=== PATIENT | male | born 1960 | race Caucasian/White ===

== ENCOUNTER 2016-10-23 11:13 | Day surgery (SDC) | payer MEDICARE, MEDICAID ==
[~2016-10-23 11:13] MED LIST: Lactated Ringers 1,000 ML IV SCH; Lidocaine 1%/Sod Bicarbonate in NS 8.4% 1 ML Syringe IV PRN; Sodium Chloride 0.9% 10 ML Syringe FLUSH PRN
--- NOTE | 2016-10-23 13:18 | PCM.PREANE ---
Preanesthetic Assessment - Anesthesia/Transfusion/Family Hx Anesthesia History: Prior Anesthesia Without Reaction Transfusion History: No Prior Transfusion(s) - Physical Assessment NPO Status Date: 10/22/16 NPO Status Time: 23:45 O2 Sat by Pulse Oximetry: 95 Respiratory Rate: 16 Vital Signs: Last Vital Signs Temp 36.3 C 10/23/16 12:25 Pulse 58 L 10/23/16 12:25 Resp 16 10/23/16 12:25 BP 125/66 10/23/16 12:25 Pulse Ox 95 10/23/16 12:25 Height: 1.8 m Weight: 106.141 kg - Allergies Allergies/Adverse Reactions: Allergies Allergy/AdvReac Type Severity Reaction Status Date / Time indomethacin Allergy Airway Verified 10/22/16 14:07 Tightness PreAnesthesia Questionnaire HEENT History: Reports: Impaired vision, Other (see below) Other HEENT History: dentures, glasses Cardiovascular History: Reports: None Respiratory History: Reports: Asthma, Bronchitis, recurrent, COPD, Sleep apnea, SOB, Other (see below) Other Respiratory History: rhonchi, wheezes Gastrointestinal History: Reports: Cholelithiasis, Diverticulosis, Gastritis, GERD, Hiatal hernia, Other (see below) Other Gastrointestinal History: duodenitis, barretts esophogus, inguinal hernia , c diff, foacal intestinal metaplasia, duodenitis, diverticulosis Genitourinary History: Reports: Other (see below) Other Genitourinary History: hematuria MISSIONARY COORDINATOR History: Reports: None Musculoskeletal History: Reports: Arthritis Other Musculoskeletal History: R hip pain, R shoulder pain, plantar fascitis Neurological History: Reports: None Psychiatric History: Reports: Anxiety, Bipolar, Depression Endocrine/Metabolic History: Reports: Hypothyroidism, Obesity/BMI 30+ Hematologic History: Reports: Anemia Immunologic History: Reports: None Oncologic (Cancer) History: Reports: None - Past Surgical History Head Surgeries/Procedures: Reports: None GI Surgical History: Reports: Colonoscopy, Hernia, inguinal, Hernia repair/other Musculoskeletal Surgical History: Reports: Hip replacement, Other (see below) Other Musculoskeletal Surgeries/Procedures:: R hand surgery, R elbow surgery, R total hip replacement, pigeon chest surgery - SUBSTANCE USE Smoking Status *Q: Former Smoker (30 years about 4packs/day) Tobacco Use Within Last Twelve Months: No Second Hand Smoke Exposure: No Days Per Week of Alcohol Use: 0 Recreational Drug Use History: No - HOME MEDS Home Medications: Home Meds ARIPiprazole [Abilify] 10 mg PO DAILY 12/18/13 [History] Albuterol Sulfate [Albuterol Sulfate HFA] 18 gm IH Q6H PRN #1 hfa.[email or web address] [Rx] FLUoxetine [PROzac] 80 mg PO DAILY 12/18/13 [History] Albuterol [Proventil HFA] 1 puff INH QID PRN 09/06/15 [History] Budesonide/Formoterol [Symbicort 160-4.5 MCG] 2 puff INH BID 09/06/15 [History] Acetaminophen [Tylenol Extra Strength] 1,000 mg PO TID PRN 04/16/16 [History] Levothyroxine [Synthroid] 100 mcg PO ACBREAKFAST 04/16/16 [History] Umeclidinium [place] [Incruse Ellipta] 62.5 mcg IH BID 04/16/16 [History] Pantoprazole Sodium [Protonix] 40 mg PO DAILY #30 tablet.dr 04/17/16 [Rx] Montelukast [Singulair] 10 mg PO BEDTIME 05/14/16 [History] Ascorbate Calcium/Bioflavonoid [Kath-C 1,000 mg Tablet] 1 each PO DAILY [History] Diclofenac Sodium [Voltaren] 75 mg PO BID 10/22/16 [History] Lactobacillus Acidophilus [Probiotic] 1 each PO DAILY 10/22/16 [History] Multivitamin [Multivitamins] 1 cap PO DAILY 10/22/16 [History] buPROPion [Wellbutrin XL] 150 mg PO DAILY 10/22/16 [History] Doxycycline [Vibramycin] 100 mg PO BID 10/23/16 [History] - CURRENT (IN HOUSE) MEDS Current Meds: Current Medications Lactated Ringer's (Ringers, Lactated) 1,000 mls @ 125 mls/hr IV ASDIRECTED SORAYA Stop: 10/23/16 23:59 Last Admin: 10/23/16 12:45 Dose: 125 mls/hr Lidocaine/Sodium Bicarbonate (Buffered Lidocaine 1% In Ns 8.4%) 0.25 ml IV ONETIME PRN PRN Reason: Prior to IV Start Stop: 10/23/16 23:59 Last Admin: 10/23/16 12:45 Dose: 0.25 ml Sodium Chloride (Saline Flush) 10 ml FLUSH ASDIRECTED PRN PRN Reason: Keep Vein Open Stop: 10/23/16 23:59 Preanesthetic Assessment - ANESTHESIA/TRANSFUSION/FAMILY HX Anesthesia/Transfusion History: No Prior Transfusion(s), Prior Anesthesia ( reports no problems ) Type of Anesthesia Reaction: Reports: Unknown Family History of Anesthesia Reaction: No Intubation History: Unknown Type of Transfusion Reactions: Reports: Unknown - REVIEW OF SYSTEMS Constitutional: Reports: no symptoms CLOSET BUILDER: 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: no symptoms Respiratory: Reports: no symptoms (asthma, copd, emphysema (uses daily inhalers) , LULU with CPAP) Cardiovascular: Reports: no symptoms GI: Reports: no symptoms Other: Reports: None - PHYSICAL ASSESSMENT O2 Sat by Pulse Oximetry: 95 RR: 16 Vital Signs: Last Vital Signs Temp 36.3 C 10/23/16 12:25 Pulse 58 L 10/23/16 12:25 Resp 16 10/23/16 12:25 BP 125/66 10/23/16 12:25 Pulse Ox 95 10/23/16 12:25 Height: 1.8 m Weight: 106.141 kg NPO Status Date: 10/22/16 NPO Status Time: 23:45 ASA Class: 3 Mental Status: Alert & Oriented x3 Airway Class: Mallampati = 1 Dentition: Reports: Dentures (upper and lower ) Thyro-Mental Finger Breadths: 3 Mouth Opening Finger Breadths: 3 ROM/Head Extension: Full Respiratory Status: wheezing (Expiratory wheezes with a large breath, otherwise clear ) Cardiovascular Status: regular rate & rhythm, normal S1, S2, no murmur, blood pressure WNL - ALLERGIES Allergies/Adverse Reactions: Allergies Allergy/AdvReac Type Severity Reaction Status Date / Time indomethacin Allergy Airway Verified 10/22/16 14:07 Tightness - BLOOD Blood Available: No Product(s) Available: None - ANESTHESIA PLAN Preop Beta Kamryn: No Anesthesia Type Planned: MAC - ACKNOWLEDGEMENTS Pt an Appropriate Candidate for the Planned Anesthesia: Yes Alternatives and Risks of Anesthesia Discussed w Pt/Guardian: Yes Pt/Guardian Understands and Agrees with Anesthesia Plan: Yes
[2016-10-23] MEDS ORDERED: Propofol 200 MG/20 ML SDV ONE ×2 (13:49→14:18)
[2016-10-23] MEDS ORDERED: Lidocaine 1% 4 ML ONE (13:50)
--- NOTE | 2016-10-23 14:27 | PCM.HP ---
H&P History of Present Illness - General Date of Service: 10/23/16 Admit Problem/Dx: Maguire's esophagus, bloating, change in bowel habits, abdominal pain, melena Source of Information: Patient History Limitations: Reports: No limitations - History of Present Illness Initial Comments - Free Text/Narative: The patient is a 55-year-old male. Well known to the clinic. His PCP is Dr. Bayron Frazier. 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 Esophogram showed small sliding hiatal hernia with GERD. Esophogram was otherwise unremarkable. He was started on PPI therapy. He continued to have c/o of nausea and abdominal pain. He was found to have gallstones on CT. The patient underwent a laparoscopic cholecystectomy with Dr. Rose Clinton at [facility] on 05/15/16. I last saw the patient on 09/23/16. He reports no major health changes since this visit. He did have a bout of bronchitis, that apparently required three rounds of antibiotics. He did have a course of steroids. He did see Dr. Frazier on 10/21/16 who did feel he could proceed with endoscopy. He reports he is feeling much better. He did have a negative C. diff. He did finish prep and does feel "cleaned out." Reports stool was clear. He does have Maguire's and Is due for surveillance EGD. NO: reflux, heartburn , nausea, vomiting, or dysphagia. Occasional epigastric pain and pain in scar. Is taking PPI. The patient denies any constipation. Has occasional had diarrhea. Is s/p cholecystectomy and did try taking Colestid once with relief feels diarrhea may have decreased, but still does have this intermittently. NO: hematochezia. Hx of darker stools. NO: blood on tissue paper/hemorrhoids. Normally has 3-4 stools, usually soft, not liquid. Bowel movements are described as easy to pass. No unintentional weight loss. No change in stool caliber.Chronic suprapubic pain, along with diarrhea. Denies history of ulcerative colitis or Crohn's disease. Denies any family history of inflammatory bowel disease or GI cancers. Has had diarrhea off and on for years, uncertain if was present with last colonoscopy. Feels a lot better since gallbladder removal. He was evaluated by Dr. Taylor in 03/25/2014. The patient has a history of LLQ pain and diverticulitis. A CT abdomen and pelvis was done at that time also showed no acute abnormality. In 2012 he had a bout of diverticulitis and was hospitalized , it was complicated by a C. Diff infection. The patient had a colonoscopy on with Dr. Rose Clinton. He did have diffuse diverticulum present in the descending and sigmoid colon. He still does have generalized abdominal pain at times, periumbilical, epigastric, suprapubic, all over abdomen. He also does report that he does occasionally have diarrhea with the abdominal pain however this is not every time. His bowel movements are still ranging from normal to loose to diarrhea- like stools. He does not have diarrhea every time he eats. The variability in stool consistency is somewhat normal for him and did not change post antibiotic administration for bronchitis. He does take a Probiotic. He reports he has cut coffee out completely and is drinking decaf. Cut out pop and feels this helped somewhat. He denies that he takes ibuprofen. He does take Tylenol. He no longer drinks alcohol or smokes. He does report gas as well all the time and does nothing for this. Had a little pain in the am, pain is off and on. Hx of diverticulitis with similar presentation, symptoms have been ongoing since February. Negative CT 02/2016 with similar symptoms. Has hx of chronic suprapubic pain that is off and on. He denies that he has this pain now. He denies any UTI symptoms. Has had multiple UAs, no UTI, but blood has been present in urine. He reports that he has had abdominal pain in the suprapubic region on and off for months. He reports that he will have suprapubic pain that will last for approximately 10-15 minutes and he reports the area is tender to touch. He denies pain presently and again reports "it isn' t happening that often." He has not been able to pinpoint any aggravating or alleviating factors to the pain. He describes it as a cramping or throbbing pain in the area. He reports that he'll have a diarrhea stool after the pain has subsided at times. The diarrhea stool does not happen with each pain occurrence; it does happen occasionally. He reports the stool is dark brown and watery, again it is an occasional occurrence, not daily. He also does note some left abdominal pain, sharp on and off for seconds. - Related Data Allergies/Adverse Reactions: Allergies Allergy/AdvReac Type Severity Reaction Status Date / Time indomethacin Allergy Airway Verified 10/22/16 14:07 Tightness Home Medications: Home Meds ARIPiprazole [Abilify] 10 mg PO DAILY 12/18/13 [History] Albuterol Sulfate [Albuterol Sulfate HFA] 18 gm IH Q6H PRN #1 hfa.aer.ad [Rx] FLUoxetine [PROzac] 80 mg PO DAILY 12/18/13 [History] Albuterol [Proventil HFA] 1 puff INH QID PRN 09/06/15 [History] Budesonide/Formoterol [Symbicort 160-4.5 MCG] 2 puff INH BID 09/06/15 [History] Acetaminophen [Tylenol Extra Strength] 1,000 mg PO TID PRN 04/16/16 [History] Levothyroxine [Synthroid] 100 mcg PO ACBREAKFAST 04/16/16 [History] Umeclidinium [place] [Incruse Ellipta] 62.5 mcg IH BID 04/16/16 [History] Pantoprazole Sodium [Protonix] 40 mg PO DAILY #30 tablet. 04/17/16 [Rx] Montelukast [Singulair] 10 mg PO BEDTIME 05/14/16 [History] Ascorbate Calcium/Bioflavonoid [Kath-C 1,000 mg Tablet] 1 each PO DAILY [History] Diclofenac Sodium [Voltaren] 75 mg PO BID 10/22/16 [History] Lactobacillus Acidophilus [Probiotic] 1 each PO DAILY 10/22/16 [History] Multivitamin [Multivitamins] 1 cap PO DAILY 10/22/16 [History] buPROPion [Wellbutrin XL] 150 mg PO DAILY 10/22/16 [History] Doxycycline [Vibramycin] 100 mg PO BID 10/23/16 [History] Past Medical History HEENT History: Reports: Impaired vision, Other (see below) Other HEENT History: dentures, glasses Cardiovascular History: Reports: None Respiratory History: Reports: Asthma, Bronchitis, recurrent, COPD, Sleep apnea, SOB, Other (see below) Other Respiratory History: rhonchi, wheezes Gastrointestinal History: Reports: Cholelithiasis, Diverticulosis, Gastritis, GERD, Hiatal hernia, Other (see below) Other Gastrointestinal History: duodenitis, barretts esophogus, inguinal hernia , c diff, foacal intestinal metaplasia, duodenitis, diverticulosis Genitourinary History: Reports: Other (see below) Other Genitourinary History: hematuria 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 Musculoskeletal History: Reports: Arthritis Other Musculoskeletal History: R hip pain, R shoulder pain, plantar fascitis Neurological History: Reports: None Psychiatric History: Reports: Anxiety, Bipolar, Depression Endocrine/Metabolic History: Reports: Hypothyroidism, Obesity/BMI 30+ Hematologic History: Reports: Anemia Immunologic History: Reports: None Oncologic (Cancer) History: Reports: None - Past Surgical History Head Surgeries/Procedures: Reports: None GI Surgical History: Reports: Colonoscopy, Hernia, inguinal, Hernia repair/other Musculoskeletal Surgical History: Reports: Hip replacement, Other (see below) Other Musculoskeletal Surgeries/Procedures:: R hand surgery, R elbow surgery, R total hip replacement, pigeon chest surgery Social & Family History - Family History Cardiac: Reports: Hypertension Other Cardiac Family History: Mother Respiratory: Reports: COPD, Other (see below) Other Respiratory Family Hisory: Emphysema. mother GI: Reports: None : Reports: None Neurological: Reports: None Hematologic: Reports: None Immunologic: Reports: None Dermatologic: Reports: None Oncologic: Reports: None - Tobacco Use Smoking Status *Q: Former Smoker (30 years about 4packs/day) Years of Tobacco use: 30 Used Tobacco, but Quit: Yes Month Tobacco Last Used: 2009 Second Hand Smoke Exposure: No - Caffeine Use Caffeine Use: Reports: None, Coffee - Alcohol Use Days Per Week of Alcohol Use: 0 - Recreational Drug Use Recreational Drug Use: No - Living Situation & Occupation Living situation: Reports: single Occupation: employed H&P Review of Systems - Review of Systems: Review Of Systems: See Below Free Text/Narrative: Denies any exertional chest pain. Has exertional shortness of breath. No history of any easy bleeding or bruising. No personal or familial history of clotting or bleeding disorders. No history of anesthetic complications. No history of familial anesthetic complications. Presently denies chest pain.The patient previously did report that he had a bout of some middle chest tightness earlier this year he thought he might be having a heart attack. He did go to the ED and was evaluated in August. He had negative troponins. His EKG showed a sinus rhythm with incomplete right bundle branch block poor R-wave progression consider right ventricular hypertrophy low voltage precordial leads. Denies recurrence of chest pain. He does have palpitations at times, with reports "heart pounds and has some SOB", usually occurring with exertion. NO: lower extremity edema, dyspnea at rest, orthopnea, claudication, wheezing. No history of blood thinner use. History of anemia. The patient has had a right hip joint replacement. Fell recently and has right hip pain. Has ortho visit scheduled. No history of seizure or stroke. Has obstructive sleep apnea (uses CPAP). He has a chronic cough. Follows regularly with pulmonology due to COPD and asthma. Uses albuterol once or twice daily. Has tolerated EGD well in 2016. Echo 2014: Conclusion: 1. Left ventricular ejection fraction is 60 to 65%. 2. Impaired left ventricular relaxation with normal LV filling pressures-( Grade I Diastolic Dysfunction). 3. Mildly enlarged right ventricle. 4. Mildly dilated left atrium. EKG 2014: EKG Severity - ABNORMAL ECG - EKG Impression Sinus rhythm Incomplete right bundle branch block Low voltage, precordial leads All other systems reviewed and were negative except as per history of present illness General: Reports: no symptoms HEENT: Reports: no symptoms Pulmonary: Reports: No Symptoms, Other (see hpi) Cardiovascular: Reports: no symptoms Gastrointestinal: Reports: No symptoms, Other (see hpi) Genitourinary: Reports: no symptoms Musculoskeletal: Reports: no symptoms Skin: Reports: no symptoms Psychiatric: Reports: no symptoms Neurological: Reports: No Symptoms Hematologic/Lymphatic: Reports: no symptoms Immunologic: Reports: no symptoms Exam - Exam Exam: See Below - Vital Signs Vital Signs: Last Vital Signs Temp 36.3 C 10/23/16 12:25 Pulse 58 L 10/23/16 12:25 Resp 16 10/23/16 13:20 BP 125/66 10/23/16 12:25 Pulse Ox 95 10/23/16 13:20 Weight: 106.141 kg - Exam General: alert, oriented HEENT: Conjunctiva clear. No: Scleral icterus Lungs: Normal respiratory effort, Wheezing (posteriorly ) Cardiovascular: regular rate, regular rhythm, normal S1, normal S2. No: systolic murmur, diastolic murmur Abdomen: soft. No: tenderness Back Exam: normal inspection Extremities: normal inspection. No: clubbing, cyanosis, edema Skin: warm, dry, intact Neuro Extensive - Mental Status: alert, oriented x3, normal mood/affect, normal cognition, memory intact Psychiatric: alert, normal affect, normal mood *Q Meaningful Use (ADM) - VTE *Q VTE Criteria *Q: - Stroke *Q Stroke Criteria *Q: - AMI *Q AMI Criteria *Q: Problem List Initiated/Reviewed/Updated: Yes Orders Last 24hrs: Active Orders 24 hr Category Date Time Status Communication Order [RC] ROUTINE Care 10/23/16 14:05 Active Cooling Warming Measures [RC] ASDIRECTED Care 10/23/16 14:05 Active Notify Provider [RC] ASDIRECTED Care 10/23/16 14:05 Active Peripheral IV Care [RC] . DIRECTED Care 10/23/16 00:01 Active Verify Patient Consent Obtain [RC] ASDIRECTED Care 10/23/16 00:01 Active Lactated Ringers [Ringers, Lactated] 1,000 ml Med 10/23/16 00:01 Active IV ASDIRECTED Lidocaine 1%/Sod Bicarbonate [Buffered Lidocaine 1% in Med 10/23/16 00:01 Active NS 8.4%] 0.25 ml IV ONETIME PRN Sodium Chloride 0.9% [Saline Flush] Med 10/23/16 00:01 Active 10 ml FLUSH ASDIRECTED PRN Medication Administration Instruction [OM.PC] Routine Oth 10/23/16 00:01 Ordered Peripheral IV Insertion Adult [OM.PC] Routine Oth 10/23/16 00:01 Ordered Medication Orders Lactated Ringer's (Ringers, Lactated) 1,000 mls @ 125 mls/hr IV ASDIRECTED SORAYA Stop: 10/23/16 23:59 Last Admin: 10/23/16 12:45 Dose: 125 mls/hr Lidocaine/Sodium Bicarbonate (Buffered Lidocaine 1% In Ns 8.4%) 0.25 ml IV ONETIME PRN PRN Reason: Prior to IV Start Stop: 10/23/16 23:59 Last Admin: 10/23/16 12:45 Dose: 0.25 ml Sodium Chloride (Saline Flush) 10 ml FLUSH ASDIRECTED PRN PRN Reason: Keep Vein Open Stop: 03/29/17 23:59 Assessment/Plan Comment:: 55yr male with Maguire's esophagus, diarrhea, melena, change in bowel pattern, chronic abdominal pain, bloating, need for surveillance EGD and diagnostic colonoscopy Patient can perform 4 METS of physical activity without chest pain. Has exertional shortness of breath, COPD-Gold Stage C, asthma, sleep apnea. ~ Hx of hematuria on UA Scattered wheezes PLAN: We discussed performing a surveillance EGD and diagnostic colonoscopy. We discussed the procedure and post operative expectations. This procedure will be done today at [facility] due to COPD, asthma orders were placed and sent. mes. I personally reviewed the patient's previous medical records and laboratory studies. Patient verbalized understanding and agreed with care plan. NAYE Bergeron General Surgery Department [facility]
--- NOTE | 2016-10-23 15:24 | PCM.OPNOTE ---
- General Post-Op/Procedure Note Date of Surgery/Procedure: 10/23/16 Operative Procedure(s): 1. Diagnostic EGD with cold forceps biopsy. 2. Diagnostic colonoscopy with cold forceps polypectomy Pre Op Diagnosis: History of Maguire's, abdominal pain Post-Op Diagnosis: 1. Mild gastritis. 2. Colon polyps. 3. Diverticulosis Anesthesia Technique: MAC Primary Surgeon: Rose Clinton Anesthesia Provider: Raquel Serrano Pathology: 1. Small bowel biopsy 2. Antral biopsy 3. Distal esophageal biopsy 4. Sigmoid colon polyp Fluid Replacement, Intraop: 450 (mL crystalloid) EBL in mLs: 1 Complications: None Condition: Good Free Text/Narrative:: INDICATION FOR PROCEDURE: The patient is a 55-year-old man who has a history of Maguire's esophagus, intestinal metaplasia duodenitis. He presents for surveillance EGD for Maguire's. He has occasional epigastric pain while on a PPI. He also reports diffuse generalized abdominal pain which is periumbilical , epigastric and suprapubic, occurring at times. His last colonoscopy was July 14, 2013 showed diverticulosis. He is a patient of Dr. Bayron Frazier. Performing a colonoscopy and EGD and the associated risks of the procedures had been discussed with the patient. The patient found these risks acceptable and agreed to proceed. DESCRIPTION OF PROCEDURE: The patient was taken to the operating room and placed in the left lateral decubitus position. After induction of adequate sedation, a bite block was placed. A standard Olympus gastroscope was inserted into the oropharynx and guided down the esophagus without difficulty. The gastroesophageal junction was appreciated at 39 cm from the teeth. There was no evidence of stricture or esophageal ulcerations. There was no evidence of Maguire's changes. The scope was advanced into the stomach, and there was mild gastritis. The scope was passed into the proximal jejunum and the duodenum which were unremarkable. There were no petechiae or ulcerations. The proximal jejunum was grossly normal in appearance. Multiple cold forceps biopsies were obtained of the proximal jejunum and duodenum. The scope was withdrawn into the antrum, and additional cold forceps biopsies were obtained. The remainder of the gastric body was examined, and there were no additional abnormalities. The scope was retroflexed, and there was no clear evidence of hiatal hernia. The scope was straightened and withdrawn to the GE junction. Additional cold forceps biopsies were obtained of the distal esophagus. The scope was withdrawn through the remainder of the esophagus and no further abnormalities were noted. The posterior oropharynx was grossly normal in appearance. The scope was fully withdrawn and attention was then turned to the colonoscopy. A digital rectal exam was performed which was unremarkable. The prostate was non -nodular. An adult Olympus colonoscope was inserted into the rectum and guided under direct visualization to the appendiceal orifice and ileocecal valve. The scope was then slowly withdrawn through the colon. The quality of the prep was excellent. There was no evidence of angiodysplasias. Moderate to severe diverticulosis was noted in the sigmoid colon. A small sigmoid colon polyp was noted. It was removed in its entirety. The scope was withdrawn into the rectum and retroflexed. There was no significant prominence of the patient's internal hemorrhoids. The scope was straightened, the colon was desufflated,and the scope was withdrawn. The patient was awakened from sedation and transferred to the recovery room in stable condition having tolerated the procedure well. POSTOPERATIVE PLAN: I discussed with the patient my intraoperative findings and recommendations. The patient will follow up in approximately 7-10 days to discuss pathology and how their symptoms are progressing. I have asked the patient to follow a GERD\gastritis diet. The patient is to call with any worsening of symptoms or questions prior to the appointment. I did recommend he discontinue the diclofenac orally and vitamin c as they irritate the stomach.
--- NOTE | 2016-10-23 15:34 | PCM48HPAN ---
Post Anesthesia Note - EVALUATION WITHIN 48HRS OF ANESTHETIC Vital Signs in Normal Range: Yes Patient Participated in Evaluation: Yes Respiratory Function Stable: Yes Airway Patent: Yes Cardiovascular Function Stable: Yes Hydration Status Stable: Yes Pain Control Satisfactory: Yes Nausea and Vomiting Control Satisfactory: Yes Mental Status Recovered: Yes
[2016-10-23 16:16] VITALS: BP 147/74
== END 2016-10-23 16:10 | disposition home or self-care (01) ==
LOC: JD.SDS 11:13
PROVIDERS: ATTEND Surgery
DX: K29.70 Gastritis, unspecified, without bleeding (principal); K62.1 Rectal polyp; Z88.8 Allergy status to other drugs, medicaments and biological substances
CPT/HCPCS: 43239; 45380; J7120; 00810; 88305; J2704

== ENCOUNTER 2018-03-16 07:20 | Emergency (ER) | payer MEDICARE, MEDICAID ==
[2018-03-16] MEDS ORDERED: Clindamycin Phosphate 600 MG in Sodium Chloride 0.9% 100 ML IV ONE (07:45)
[2018-03-16] MEDS ORDERED: Sodium Chloride 0.9% 10 ML Syringe FLUSH PRN (07:45)
--- NOTE | 2018-03-16 08:45 | EDM.PDOC ---
ED HPI GENERAL MEDICAL PROBLEM - General Chief Complaint: Lower Extremity Injury/Pain Stated Complaint: R KNEE PAIN Time Seen by Provider: 03/16/18 07:38 Source of Information: Reports: Patient History Limitations: Reports: No Limitations - History of Present Illness INITIAL COMMENTS - FREE TEXT/NARRATIVE: The patient presents with right knee pain, redness and swelling. He fell on the when he was in [place]. It was 111 degrees and he got light headed and fell. He landed on his left knee. He had 2 large abrasions to his knee. He then developed redness and swelling. He was seen at the walk in clinic at [place] last week and they did an US and put him on some keflex. He says he is not getting any better. He has no fever or chills. He has no chest pain, shortness of breath, abdominal pain, nausea or vomiting. Onset: Sudden Duration: Day(s): (5 days ago) Location: Reports: Lower Extremity, Right (knee) Quality: Reports: Sharp Severity: Moderate Improves with: Reports: None Worsens with: Reports: None Associated Symptoms: Reports: No Other Symptoms Right Leg Pain Score (Numeric/FACES): 5 - Related Data Allergies Allergy/AdvReac Type Severity Reaction Status Date / Time indomethacin Allergy Airway Verified 03/16/18 07:35 Tightness Home Meds: Home Meds ARIPiprazole [Abilify] 10 mg PO DAILY 12/18/13 [History] Albuterol Sulfate [Albuterol Sulfate HFA] 18 gm IH Q6H PRN #1 hfa.aer.ad [Rx] FLUoxetine [PROzac] 80 mg PO DAILY 12/18/13 [History] Albuterol [Proventil HFA] 1 puff INH QID PRN 09/06/15 [History] Budesonide/Formoterol [Symbicort 160-4.5 MCG] 2 puff INH BID 09/06/15 [History] Acetaminophen [Tylenol Extra Strength] 1,000 mg PO TID PRN 04/16/16 [History] Levothyroxine [Synthroid] 100 mcg PO ACBREAKFAST 04/16/16 [History] Umeclidinium [place] [Incruse Ellipta] 62.5 mcg IH BID 04/16/16 [History] Pantoprazole Sodium [Protonix] 40 mg PO DAILY #30 tablet. 04/17/16 [Rx] Montelukast [Singulair] 10 mg PO BEDTIME 05/14/16 [History] Lactobacillus Acidophilus [Probiotic] 1 each PO DAILY 10/22/16 [History] Multivitamin [Multivitamins] 1 cap PO DAILY 10/22/16 [History] buPROPion [Wellbutrin XL] 150 mg PO DAILY 10/22/16 [History] Cephalexin [Keflex] 500 mg PO TID 03/16/18 [History] Hydrocodone/Acetaminophen [Hydrocodon-Acetaminophen 5-325] 1 - 2 each PO Q6HR PRN #15 tablet 03/16/18 [Rx] Past Medical History HEENT History: Reports: Impaired Vision Other HEENT History: dentures, glasses Cardiovascular History: Reports: None Respiratory History: Reports: Asthma, Bronchitis, Recurrent, COPD, Sleep Apnea, SOB Other Respiratory History: rhonchi, wheezes Gastrointestinal History: Reports: Cholelithiasis, Diverticulosis, Gastritis, GERD, Hiatal Hernia, Other (See Below) Other Gastrointestinal History: duodenitis, barretts esophogus, inguinal hernia , c diff, foacal intestinal metaplasia, duodenitis, diverticulosis Genitourinary History: Reports: Other (See Below) Other Genitourinary History: hematuria [employer] History: Reports: None Musculoskeletal History: Reports: Arthritis Other Musculoskeletal History: R hip pain, R shoulder pain, plantar fascitis Neurological History: Reports: None Psychiatric History: Reports: Anxiety, Bipolar, Depression Endocrine/Metabolic History: Reports: Hypothyroidism, Obesity/BMI 30+ Hematologic History: Reports: Anemia Immunologic History: Reports: None Oncologic (Cancer) History: Reports: None - Past Surgical History Head Surgeries/Procedures: Reports: None GI Surgical History: Reports: Colonoscopy, Hernia, Inguinal, Hernia Repair/Other Musculoskeletal Surgical History: Reports: Hip Replacement Social & Family History - Family History Cardiac: Reports: Hypertension Other Cardiac Family History: Mother Respiratory: Reports: COPD, Other (See Below) Other Respiratory Family Hisory: Emphysema. mother GI: Reports: None : Reports: None Neurological: Reports: None Hematologic: Reports: None Immunologic: Reports: None Dermatologic: Reports: None Oncologic: Reports: None - Tobacco Use Smoking Status *Q: Never Smoker - Caffeine Use Caffeine Use: Reports: Coffee - Recreational Drug Use Recreational Drug Use: No - Living Situation & Occupation Living situation: Reports: Single Occupation: Employed Review of Systems - Review of Systems Review Of Systems: See Below Constitutional: Reports: No Symptoms Eyes: Reports: No Symptoms Ears: Reports: No Symptoms Nose: Reports: No Symptoms Mouth/Throat: Reports: No Symptoms Respiratory: Reports: No Symptoms Cardiovascular: Reports: No Symptoms GI/Abdominal: Reports: No Symptoms Genitourinary: Reports: No Symptoms Musculoskeletal: Reports: Other (Abrasions to the right knee with erythema and edema) ED EXAM, GENERAL - Physical Exam Exam: See Below Exam Limited By: No Limitations General Appearance: Alert, No Apparent Distress Ears: Normal External Exam Nose: Normal Inspection Head: Atraumatic, Normocephalic Neck: Normal Inspection Respiratory/Chest: No Respiratory Distress, Lungs Clear, Normal Breath Sounds Cardiovascular: Regular Rate, Rhythm, No Edema, No Murmur GI/Abdominal: Soft, Non-Tender, No Organomegaly, No Mass Extremities: Other (2 largs abrasions to the right knee with scabs. Erythema around the abrasions and some erythema and edema to the right lower leg. Good sensation and pulses distally.) Course - Vital Signs Last Recorded V/S: Last Vital Signs Temp 97.3 F 03/16/18 07:30 Pulse 55 L 03/16/18 07:30 Resp 16 03/16/18 07:30 BP 138/69 03/16/18 07:30 Pulse Ox 95 03/16/18 07:30 - Orders/Labs/Meds Orders: Active Orders 24 hr Category Date Time Status Peripheral IV Care [RC] . DIRECTED Care 03/16/18 07:45 Active Knee Min 4V Rt [CR] Stat Exams 03/16/18 07:46 Taken Sodium Chloride 0.9% [Saline Flush] Med 03/16/18 07:45 Active 10 ml FLUSH ASDIRECTED PRN Peripheral IV Insertion Adult [OM.PC] Routine Oth 03/16/18 07:45 Ordered Medication Orders Sodium Chloride (Saline Flush) 10 ml FLUSH ASDIRECTED PRN PRN Reason: Keep Vein Open Last Admin: 03/16/18 07:57 Dose: 10 ml Labs: Laboratory Tests 03/16/18 03/16/18 Range/Units 07:50 07:50 WBC 6.35 (4.23-9.07) K/mm3 RBC 4.57 L (4.63-6.08) M/mm3 Hgb 13.7 (13.7-17.5) gm/L Hct 41.4 (40.1-51.0) % MCV 90.6 (79.0-92.2) fl MCH 30.0 (25.7-32.2) pg MCHC 33.1 (32.2-35.5) g/dl RDW Std Deviation 44.3 H (35.1-43.9) fL Plt Count 276 (163-337) K/mm3 MPV 9.5 (9.4-12.3) fl Neut % (Auto) 66.2 (34.0-67.9) % Lymph % (Auto) 19.7 L (21.8-53.1) % [place] % (Auto) 12.0 (5.3-12.2) % Eos % (Auto) 1.7 (0.8-7.0) Baso % (Auto) 0.2 (0.1-1.2) % Neut # (Auto) 4.21 (1.78-5.38) K/mm3 Lymph # (Auto) 1.25 L (1.32-3.57) K/mm3 [place] # (Auto) 0.76 (0.30-0.82) K/mm3 Eos # (Auto) 0.11 (0.04-0.54) K/mm3 Baso # (Auto) 0.01 (0.01-0.08) K/mm3 Sodium 142 (136-145) mEq/L Potassium 4.4 (3.5-5.1) mEq/L Chloride 105 (98-107) mEq/L Carbon Dioxide 24 (21-32) mEq/L Anion Gap 17.4 H (5-15) BUN 15 (7-18) mg/dL Creatinine 1.5 H (0.7-1.3) mg/dL Est Cr Clr Drug Dosing 58.57 mL/min Estimated GFR (MDRD) 48 (>60) mL/min BUN/Creatinine Ratio 10.0 L (14-18) Glucose 107 H (74-106) mg/dL Calcium 9.1 (8.5-10.1) mg/dL Total Bilirubin 0.4 (0.2-1.0) mg/dL AST 20 (15-37) U/L ALT 34 (16-63) U/L Alkaline Phosphatase 125 H (46-116) U/L C-Reactive Protein 1.7 H* (<1.0) mg/dL Total Protein 7.9 (6.4-8.2) g/dl Albumin 4.0 (3.4-5.0) g/dl Globulin 3.9 gm/dL Albumin/Globulin Ratio 1.0 (1-2) Meds: Medications Generic Name Dose Route Start Last Admin Trade Name Freq PRN Reason Stop Dose Admin Sodium Chloride 10 ml 03/16/18 07:45 03/16/18 07:57 Saline Flush FLUSH 10 ml ASDIRECTED PRN Administration Keep Vein Open Discontinued Medications Generic Name Dose Route Start Last Admin Trade Name Freq PRN Reason Stop Dose Admin Clindamycin Phosphate 600 mg/ 104 mls @ 100 mls/hr 03/16/18 07:45 03/16/18 07 :56 Sodium Chloride IV 03/16/18 08:47 100 mls/hr ONETIME ONE Administration - Re-Assessments/Exams Free Text/Narrative Re-Assessment/Exam: 03/16/18 08:47 I ordered an IV saline lock, clindamycin 600mg IV, labs and an x-ray of his knee. 03/16/18 09:33 His x-ray looks good. His CBC looks good with a normal WBC. His anion gap is slightly elevated at 17.4. His creatinine is slightly elevated at 1.5. His glucose is 107. His CRP is slightly elevated at 1.7. I feel he has not failed outpatient treatment yet. I will keep him on the keflex and give him a little something for pain. I will have him return if he is not better in 5 days. Departure - Departure Time of Disposition: 09:40 Disposition: Home, Self-Care 01 Condition: Good Clinical Impression: Abrasion, right knee, sequela, Cellulitis of right leg - Discharge Information *PRESCRIPTION DRUG MONITORING PROGRAM REVIEWED*: No *COPY OF PRESCRIPTION DRUG MONITORING REPORT IN PATIENT LC: No Prescriptions: Hydrocodone/Acetaminophen [Hydrocodon-Acetaminophen 5-325] 1 - 2 each PO Q6HR PRN #15 tablet PRN Reason: Pain Referrals: Bayron Frazier Jr, MD [Primary Care Provider] - Forms: ED Department Discharge Additional Instructions: Clean the wound with warm soapy water 2 times per day and apply antibiotic ointment after. Put warm compresses on your knee and leg 3 times per day for 5 days. Try to elevate your leg if you are sitting around. Please return if it is not better in 5 days. - My Orders Last 24 Hours: My Active Orders 03/16/18 07:45 Peripheral IV Care [RC] . DIRECTED Sodium Chloride 0.9% [Saline Flush] 10 ml FLUSH ASDIRECTED PRN Peripheral IV Insertion Adult [OM.PC] Routine 03/16/18 07:46 Knee Min 4V Rt [CR] Stat - Assessment/Plan Last 24 Hours: My Active Orders 03/16/18 07:45 Peripheral IV Care [RC] . DIRECTED Sodium Chloride 0.9% [Saline Flush] 10 ml FLUSH ASDIRECTED PRN Peripheral IV Insertion Adult [OM.PC] Routine 03/16/18 07:46 Knee Min 4V Rt [CR] Stat
[2018-03-16 09:45] VITALS: BP 121/54
--- NOTE | 2018-03-23 13:21 | CR ---
Right knee: Four views of the right knee were obtained. Comparison: No prior knee exam. Minimal medial joint space narrowing is seen. Lateral joint space is preserved. No joint effusion is seen. No fracture or other bony abnormality is seen. Impression: 1. Minimal medial joint space narrowing. 2. Right knee exam is otherwise unremarkable. Diagnostic code #2 MTDD
== END 2018-03-16 09:58 | disposition home or self-care (01) ==
LOC: JD.ED 07:20
DX: S80.211A Abrasion, right knee, initial encounter (principal); L03.115 Cellulitis of right lower limb; J45.909 Unspecified asthma, uncomplicated; F31.9 Bipolar disorder, unspecified; F41.9 Anxiety disorder, unspecified; E03.9 Hypothyroidism, unspecified; Z88.8 Allergy status to other drugs, medicaments and biological substances; Z79.899 Other long term (current) drug therapy; W19.XXXA Unspecified fall, initial encounter
CPT/HCPCS: 36415; 73564; 80053; 85025; 86140; 96365; 99284; J3490; J7030; J7050

== ENCOUNTER 2018-09-18 06:47 | Day surgery (SDC) | payer MEDICARE, MEDICAID ==
--- NOTE | 2018-09-18 06:41 | PCM.PREANE ---
Preanesthetic Assessment - Anesthesia/Transfusion/Family Hx Anesthesia History: Prior Anesthesia Without Reaction Family History of Anesthesia Reaction: No Transfusion History: No Prior Transfusion(s) Intubation History: Unknown - Review of Systems General: No Symptoms Pulmonary: No Symptoms (COPD/LULU-CPAP/History of ETOH abuse quit 2007/History of nocturnal hypoxemia/Quit smoking 12/26/2009), Shortness of Breath Cardiovascular: No Symptoms Gastrointestinal: No Symptoms (GERD/Maguire's esophagus), Diarrhea Neurological: No Symptoms, Numbness (right hand at times) Other: Reports: Diabetes (prediabetic), Thyroid Problems (hypothyroid), Depression, Anxiety - Physical Assessment NPO Status Date: 09/17/18 NPO Status Time: 21:30 Pulse: 59 O2 Sat by Pulse Oximetry: 100 Respiratory Rate: 18 Blood Pressure: 142/64 Temperature: 36.8 C Height: 1.8 m Weight: 111 kg ASA Class: 3 Mental Status: Alert & Oriented x3 Airway Class: Mallampati = 2 Dentition: Reports: Dentures Thyro-Mental Finger Breadths: 3 Mouth Opening Finger Breadths: 3 ROM/Head Extension: Full Lungs: Clear to Auscultation, Normal Respiratory Effort Cardiovascular: Regular Rate, Regular Rhythm, No Murmurs - Allergies Allergies/Adverse Reactions: Allergies Allergy/AdvReac Type Severity Reaction Status Date / Time indomethacin Allergy Airway Verified 03/16/18 07:35 Tightness - Anesthesia Plan Pre-Op Medication Ordered: None - Acknowledgements Anesthesia Type Planned: MAC Pt an Appropriate Candidate for the Planned Anesthesia: Yes Alternatives and Risks of Anesthesia Discussed w Pt/Guardian: Yes Pt/Guardian Understands and Agrees with Anesthesia Plan: Yes PreAnesthesia Questionnaire HEENT History: Reports: Glaucoma, Impaired Vision Other HEENT History: dentures, glasses Cardiovascular History: Reports: None Respiratory History: Reports: Asthma, Bronchitis, Recurrent, COPD, Sleep Apnea, SOB Other Respiratory History: rhonchi, wheezes Gastrointestinal History: Reports: Cholelithiasis, Diverticulosis, Gastritis, GERD, Hiatal Hernia, Other (See Below) Other Gastrointestinal History: duodenitis, barretts esophogus, inguinal hernia , c diff, foacal intestinal metaplasia, duodenitis, diverticulosis Genitourinary History: Reports: Other (See Below) Other Genitourinary History: hematuria [employer]ING [employer] History: Reports: None Musculoskeletal History: Reports: Arthritis, Osteoarthritis Other Musculoskeletal History: R hip pain, R shoulder pain, plantar fascitis Neurological History: Reports: None Psychiatric History: Reports: None, Anxiety, Bipolar, Depression Endocrine/Metabolic History: Reports: Hypothyroidism, Obesity/BMI 30+ Hematologic History: Reports: Anemia Immunologic History: Reports: None Oncologic (Cancer) History: Reports: None Dermatologic History: Reports: None - Past Surgical History Head Surgeries/Procedures: Reports: None HEENT Surgical History: Reports: Cataract Surgery, Eye Surgery Cardiovascular Surgical History: Reports: None Respiratory Surgical History: Reports: None GI Surgical History: Reports: Colonoscopy, EGD, Hernia, Inguinal, Hernia Repair/ Other Female Surgical History: Reports: None Male Surgical History: Reports: None Endocrine Surgical History: Reports: None Neurological Surgical History: Reports: None Musculoskeletal Surgical History: Reports: Hip Replacement Other Musculoskeletal Surgeries/Procedures:: R hand surgery, R elbow surgery, R total hip replacement, pigeon chest surgery Dermatological Surgical History: Reports: None - SUBSTANCE USE Smoking Status *Q: Former Smoker Recreational Drug Use History: No - HOME MEDS Home Medications: Home Meds ARIPiprazole [Abilify] 10 mg PO DAILY 12/18/13 [History] Albuterol Sulfate [Albuterol Sulfate HFA] 18 gm IH Q6H PRN #1 hfa.aer.ad [Rx] FLUoxetine [PROzac] 80 mg PO DAILY 12/18/13 [History] Albuterol [Proventil HFA] 1 puff INH QID PRN 09/06/15 [History] Budesonide/Formoterol [Symbicort 160-4.5 MCG] 2 puff INH BID 09/06/15 [History] Acetaminophen [Tylenol Extra Strength] 1,000 mg PO TID PRN 04/16/16 [History] Levothyroxine [Synthroid] 100 mcg PO ACBREAKFAST 04/16/16 [History] Pantoprazole Sodium [Protonix] 40 mg PO DAILY #30 tablet.dr 04/17/16 [Rx] Montelukast [Singulair] 10 mg PO BEDTIME 05/14/16 [History] Lactobacillus Acidophilus [Probiotic] 1 each PO DAILY 10/22/16 [History] Multivitamin [Multivitamins] 1 cap PO DAILY 10/22/16 [History] buPROPion [Wellbutrin XL] 150 mg PO DAILY 10/22/16 [History] Colestipol [Colestipol HCl] 1 gm PO QID PRN 09/17/18 [History] Diclofenac Sodium [Voltaren 1% Gel] 1 dose TOP QID PRN 09/17/18 [History] Meloxicam 15 mg PO DAILY 09/17/18 [History] Spironolactone [Aldactone] 25 mg PO DAILY 09/17/18 [History] Tamsulosin HCl 0.4 mg PO DAILY 09/17/18 [History] Tiotropium [Spiriva HandiHaler] 2 puff INH BID 09/17/18 [History] Triamcinolone Acetonide [Kenalog 0.1% Crm] 1 dose TOP BID PRN 09/17/18 [History] - CURRENT (IN HOUSE) MEDS Current Meds: Current Medications Lactated Ringer's (Ringers, Lactated) 1,000 mls @ 125 mls/hr IV ASDIRECTED SORAYA Stop: 09/18/18 23:00 Lidocaine/Sodium Bicarbonate (Buffered Lidocaine 1% In Ns 8.4%) 0.25 ml IDERM ONETIME PRN PRN Reason: Prior to IV Start Stop: 09/18/18 18:00 Sodium Chloride (Saline Flush) 10 ml FLUSH ASDIRECTED PRN PRN Reason: Keep Vein Open Stop: 09/18/18 18:00
[~2018-09-18 06:47] MED LIST changes: +Albuterol 0.083% 2.5 MG/3 ML Neb Soln NEB PRN; +Lidocaine 1%/Sod Bicarbonate in NS 8.4% 1 ML Syringe IDERM PRN; -Lidocaine 1%/Sod Bicarbonate in NS 8.4% 1 ML Syringe IV PRN
[2018-09-18] MEDS ORDERED: Lidocaine 1% 6 ML ONE (07:00)
[2018-09-18] MEDS ORDERED: Propofol 200 MG/20 ML SDV ONE (07:00)
--- NOTE | 2018-09-18 07:50 | PCM.OPNOTE ---
- General Post-Op/Procedure Note Date of Surgery/Procedure: 09/18/18 Operative Procedure(s): Diagnostic Esophagogastroduodenoscopy with cold forceps biopsy Findings: Barretts Esophagus, Esophagitis Pre Op Diagnosis: GERD, Barretts Esophagus without Dysplasia Post-Op Diagnosis: Barretts Esophagus, Mild Esophagitis Anesthesia Technique: MAC Primary Surgeon: Shon Chatman Anesthesia Provider: Brittney Laurent EBL in mLs: 5 Complications: None Condition: Good Free Text/Narrative:: After the patient gave verbal and written consent he was placed on blood pressure and pulse ox monitoring. He was given IV sedation which he tolerated well. The olympus colonoscope was inserted per oropharynx and passed down to the second portion of the duodenum. The mucosal surfaces were visualized and imaged. The scope was brought back to the [place] and short segment Barretts esophagus was noted (approximately 1-2 cm). Four quadrant biopsies were taken with cold forceps biopsy and there was good hemostasis at the end of the procedure. The scope was then withdrawn. The patient tolerated the procedure well, there were no complications.
[2018-09-18 08:25] VITALS: BP 133/78
== END 2018-09-18 08:30 | disposition home or self-care (01) ==
LOC: JD.SDS 06:47
PROVIDERS: ATTEND Family Medicine
DX: K22.70 Barrett's esophagus without dysplasia (principal); K21.0 Gastro-esophageal reflux disease with esophagitis; J44.9 Chronic obstructive pulmonary disease, unspecified; E03.9 Hypothyroidism, unspecified; F32.9 Major depressive disorder, single episode, unspecified; F41.9 Anxiety disorder, unspecified; G47.33 Obstructive sleep apnea (adult) (pediatric); R73.03 Prediabetes; Z88.6 Allergy status to analgesic agent; Z99.89 Dependence on other enabling machines and devices; Z87.891 Personal history of nicotine dependence; Z79.1 Long term (current) use of non-steroidal anti-inflammatories (NSAID); Z79.899 Other long term (current) drug therapy
CPT/HCPCS: 43239; J2001; J2704; J7120; 00731

== ENCOUNTER 2018-12-23 10:57 | Emergency (ER) | payer MEDICARE, MEDICAID ==
[2018-12-23 11:06] VITALS: BP 170/78
--- NOTE | 2018-12-23 11:54 | EDM.PDOC ---
ED HPI GENERAL MEDICAL PROBLEM - General Chief Complaint: Headache Stated Complaint: HIGH BLOOD PRESSURE,FAINT PULSE,CHEST PAIN Time Seen by Provider: 12/23/18 11:33 Source of Information: Reports: Patient History Limitations: Reports: No Limitations - History of Present Illness INITIAL COMMENTS - FREE TEXT/NARRATIVE: 58-year-old male presents for evaluation and treatment of several different complaints. Primarily what brings patient in is a headache. He states he has had a head since Friday. Is unable to tell me if it came on suddenly a gradual said "it just came on ". At this time is radiating as a 5 out of 10. States it is located on both side of his head with radiation to his neck. He has tried multiple [id number] medications but continues to have significant pain. Asked to describe the pain he states that "it just hurts ". He reports associated symptoms of weakness and malaise. Reports some dizziness. He denies any nausea, vomiting, vision changes, numbness or tingling in the extremities. He states that he feels "hot ". Patient also reports left-sided chest pain. States that is present with movement of his left arm. Denies any recent heavy lifting or moving. Reports some shortness of breath. associated a history of COPD, asthma and emphysema. He does utilize nebulizers but has not used one recently. Denies any history of hypertension, hyperlipidemia. States he is a prediabetic. No previous cardiac history. He previously smoked but quit 9-10 years ago. He is seen at the walk-in clinic but sent over here as his heart rate was in the 50s. Reportedly his pulse is normally in the 70s. Upon arrival in the ER blood pressure was 170/78 with pulse 58. 30 minutes after arriving in the ER blood pressure of 141/80 with a pulse of 62. Primary care provider is Dr. Frazier. - Related Data Allergies Allergy/AdvReac Type Severity Reaction Status Date / Time indomethacin Allergy Airway Verified 09/18/18 07:34 Tightness Home Meds: Home Meds ARIPiprazole [Abilify] 10 mg PO DAILY 12/18/13 [History] Albuterol Sulfate [Albuterol Sulfate HFA] 18 gm IH Q6H PRN #1 [id number] [Rx] FLUoxetine [PROzac] 80 mg PO DAILY 12/18/13 [History] Albuterol [Proventil HFA] 1 puff INH QID PRN 09/06/15 [History] Budesonide/Formoterol [Symbicort 160-4.5 MCG] 2 puff INH BID 09/06/15 [History] Acetaminophen [Tylenol Extra Strength] 1,000 mg PO TID PRN 04/16/16 [History] Levothyroxine [Synthroid] 100 mcg PO ACBREAKFAST 04/16/16 [History] Pantoprazole Sodium [Protonix] 40 mg PO DAILY #30 tablet.dr 04/17/16 [Rx] Montelukast [Singulair] 10 mg PO BEDTIME 05/14/16 [History] Lactobacillus Acidophilus [Probiotic] 1 each PO DAILY 10/22/16 [History] Multivitamin [Multivitamins] 1 cap PO DAILY 10/22/16 [History] buPROPion [Wellbutrin XL] 150 mg PO DAILY 10/22/16 [History] Colestipol [Colestipol HCl] 1 gm PO QID PRN 09/17/18 [History] Diclofenac Sodium [Voltaren 1% Gel] 1 dose TOP QID PRN 09/17/18 [History] Meloxicam 15 mg PO DAILY 09/17/18 [History] Spironolactone [Aldactone] 25 mg PO DAILY 09/17/18 [History] Tamsulosin HCl 0.4 mg PO DAILY 09/17/18 [History] Tiotropium [Spiriva HandiHaler] 2 puff INH BID 09/17/18 [History] Triamcinolone Acetonide [Kenalog 0.1% Crm] 1 dose TOP BID PRN 09/17/18 [History] Past Medical History HEENT History: Reports: Glaucoma, Impaired Vision Other HEENT History: dentures, glasses Cardiovascular History: Reports: Hypertension Respiratory History: Reports: Asthma, Bronchitis, Recurrent, COPD, Sleep Apnea, SOB Other Respiratory History: rhonchi, wheezes Gastrointestinal History: Reports: Cholelithiasis, Diverticulosis, Gastritis, GERD, Hiatal Hernia, Other (See Below) Other Gastrointestinal History: duodenitis, barretts esophogus, inguinal hernia , c diff, foacal intestinal metaplasia, duodenitis, diverticulosis Genitourinary History: Reports: Other (See Below) Other Genitourinary History: hematuria [employer] History: Reports: None Musculoskeletal History: Reports: Arthritis, Osteoarthritis Other Musculoskeletal History: R hip pain, R shoulder pain, plantar fascitis Neurological History: Reports: None Psychiatric History: Reports: None, Anxiety, Bipolar, Depression Endocrine/Metabolic History: Reports: Hypothyroidism, Obesity/BMI 30+ Hematologic History: Reports: Anemia Immunologic History: Reports: None Oncologic (Cancer) History: Reports: None Dermatologic History: Reports: None - Past Surgical History Head Surgeries/Procedures: Reports: None HEENT Surgical History: Reports: Cataract Surgery, Eye Surgery Cardiovascular Surgical History: Reports: None Respiratory Surgical History: Reports: None GI Surgical History: Reports: Colonoscopy, EGD, Hernia, Inguinal, Hernia Repair/ Other Male Surgical History: Reports: None Endocrine Surgical History: Reports: None Neurological Surgical History: Reports: None Musculoskeletal Surgical History: Reports: Hip Replacement Other Musculoskeletal Surgeries/Procedures:: R hand surgery, R elbow surgery, R total hip replacement, pigeon chest surgery Dermatological Surgical History: Reports: None Social & Family History - Family History Cardiac: Reports: Hypertension Other Cardiac Family History: Mother Respiratory: Reports: COPD, Other (See Below) Other Respiratory Family Hisory: Emphysema. mother GI: Reports: None : Reports: None Neurological: Reports: None Hematologic: Reports: None Immunologic: Reports: None Dermatologic: Reports: None Oncologic: Reports: None - Tobacco Use Smoking Status *Q: Never Smoker - Caffeine Use Caffeine Use: Reports: None - Recreational Drug Use Recreational Drug Use: No - Living Situation & Occupation Living situation: Reports: Single Occupation: Employed ED ROS GENERAL - Review of Systems Review Of Systems: See Below Constitutional: Denies: Fever, Chills HEENT: Denies: Vision Change Respiratory: Reports: Shortness of Breath ("slight" ). Denies: Cough Cardiovascular: Reports: Chest Pain. Denies: Edema GI/Abdominal: Reports: Diarrhea. Denies: Abdominal Pain, Nausea, Vomiting Neurological: Reports: Headache. Denies: Numbness, Tingling - Physical Exam Exam: See Below Exam Limited By: No Limitations General Appearance: Alert, WD/WN, No Apparent Distress, Obese Ears: Normal External Exam Nose: Normal Inspection Throat/Mouth: Normal Inspection, Normal Lips, Normal Voice, No Airway Compromise Respiratory/Chest: No Respiratory Distress, Lungs Clear, Normal Breath Sounds Cardiovascular: Normal Peripheral Pulses, Regular Rate, Rhythm, No Murmur Neuro Exam (Abbreviated): Alert, Oriented, Normal Cognition Psychiatric: Normal Affect, Normal Mood Skin Exam: Warm, Dry, Normal Color EKG INTERPRETATION EKG Date: 12/23/18 Time: 12:11 Rhythm: NSR Rate (Beats/Min): 54 [place]: Normal P-Wave: Present QRS: Normal ST-T: Normal QT: Normal EKG Interpretation Comments: Sinus bradycardia at 54 bpm. RSR' V1 and V2. RBBB pattern. T wave flattening AVL and AVF. Diffuse repolarization abnormality. Reviewed by myself and Dr. Ramos. Course - Vital Signs Last Recorded V/S: Last Vital Signs Temp 98.3 F 12/23/18 11:04 Pulse 58 L 12/23/18 11:04 Resp 16 12/23/18 11:04 BP 170/78 H 12/23/18 11:04 Pulse Ox 99 12/23/18 11:04 - Orders/Labs/Meds Labs: Laboratory Tests 12/23/18 12/23/18 12/23/18 Range/Units 12:00 12:00 12:00 WBC 5.48 (4.23-9.07) K/mm3 RBC 4.53 L (4.63-6.08) M/mm3 Hgb 13.7 (13.7-17.5) gm/L Hct 41.5 (40.1-51.0) % MCV 91.6 (79.0-92.2) fl MCH 30.2 (25.7-32.2) pg MCHC 33.0 (32.2-35.5) g/dl RDW Std Deviation 44.4 H (35.1-43.9) fL Plt Count 251 (163-337) K/mm3 MPV 9.7 (9.4-12.3) fl Neutrophils % (Manual) 62 H (40-60) % Band Neutrophils % 0 (0-10) % Lymphocytes % (Manual) 26 (20-40) % Atypical Lymphs % 0 % Monocytes % (Manual) 10 (2-10) % Eosinophils % (Manual) 2 (0.8-7.0) % Basophils % (Manual) 0 L (0.2-1.2) Platelet Estimate Adequate RBC Morph Comment Normal PT 10.1 (9.5-12.1) SECONDS INR 0.93 APTT 26 (24-31) SECONDS Sodium 140 (136-145) mEq/L Potassium 4.6 (3.5-5.1) mEq/L Chloride 103 (98-107) mEq/L Carbon Dioxide 27 (21-32) mEq/L Anion Gap 14.6 (5-15) BUN 20 H (7-18) mg/dL Creatinine 1.3 (0.7-1.3) mg/dL Est Cr Clr Drug Dosing 66.77 mL/min Estimated GFR (MDRD) 57 (>60) mL/min BUN/Creatinine Ratio 15.4 (14-18) Glucose 98 (74-106) mg/dL Calcium 9.4 (8.5-10.1) mg/dL Total Bilirubin 0.3 (0.2-1.0) mg/dL AST 19 (15-37) U/L ALT 42 (16-63) U/L Alkaline Phosphatase 88 (46-116) U/L Troponin I < 0.017 (0.00-0.056) ng/mL Total Protein 7.3 (6.4-8.2) g/dl Albumin 4.1 (3.4-5.0) g/dl Globulin 3.2 gm/dL Albumin/Globulin Ratio 1.3 (1-2) Meds: Medications Discontinued Medications Generic Name Dose Route Start Last Admin Trade Name Freq PRN Reason Stop Dose Admin Diphenhydramine HCl 50 mg 12/23/18 14:05 12/23/18 14:29 Benadryl IVPUSH 12/23/18 14:06 50 mg ONETIME ONE Administration Haloperidol Lactate 5 mg 12/23/18 14:05 12/23/18 14:30 Haldol IVPUSH 12/23/18 14:06 5 mg ONETIME ONE Administration Sodium Chloride 1,000 mls @ 999 mls/hr 12/23/18 14:05 12/23/18 14:29 Normal Saline IV 12/23/18 15:05 999 mls/hr ONETIME ONE Administration Sodium Chloride 10 ml 12/23/18 11:56 12/23/18 12:05 Saline Flush FLUSH 10 ml ASDIRECTED PRN Administration Keep Vein Open - Radiology Interpretation Free Text/Narrative:: Chest: 2 views of the chest were obtained. Comparison: Previous chest x-ray of 10/09/16. Heart size at the upper limits of normal. Multiple surgical clips are seen within the anterior chest. Lungs show no acute parenchymal change. Minimal degenerative change is scattered within the spine. Impression: 1. Incidental findings. Nothing acute is appreciated. Head CT Technique: Multiple axial sections through the brain were obtained. Intravenous contrast was not utilized. Comparison: No prior intracranial imaging is available. Findings: Ventricles along with basal cisterns and sulci over the convexities are within normal limits for the patient's age. Symmetric small low-density findings are seen within the basal ganglia most likely due to prominent perivascular spaces. No other abnormal parenchymal densities are seen. No evidence of intracranial hemorrhage. No midline shift or mass effect is seen. Bone window settings were reviewed which show no acute calvarial abnormality. Under aerated left mastoid sinus is seen which is normal variant. No acute sinus disease is seen. Impression: 1. Incidental findings. Nothing acute is seen on noncontrast head CT exam. - Re-Assessments/Exams Free Text/Narrative Re-Assessment/Exam: 12/23/18 15:38 Reviewed the labs, ekg and imaging wit the patient. Reports headache is nearly resolved. Will discharge home at this time. Discharge instructions documented. Departure - Departure Time of Disposition: 15:40 Disposition: Home, Self-Care 01 Condition: Good Clinical Impression: Chest wall pain, Head ache - Discharge Information *PRESCRIPTION DRUG MONITORING PROGRAM REVIEWED*: No *COPY OF PRESCRIPTION DRUG MONITORING REPORT IN PATIENT LC: No Instructions: General Headache Without Cause, Chest Wall Pain, [id number] Referrals: Bayron Frazier Jr, MD [Primary Care Provider] - Forms: ED Department Discharge, ED Return to Work/School Form Additional Instructions: go home ans rest in a dark, quiet room. Make sure you are drinking plenty of fluids. OTC Tylenol or Motrin as needed for headaches and chest discomfort. Follow-up with PCP within 2 weeks for a recheck of your symptoms. Please return to the ER should your symptoms change or worse.
[2018-12-23] MEDS ORDERED: Sodium Chloride 0.9% 10 ML Syringe FLUSH PRN (11:56)
--- NOTE | 2018-12-23 13:39 | CR ---
Chest: Two views of the chest were obtained. Comparison: Previous chest x-ray of 05/05/16. Heart size at the upper limits of normal. Multiple surgical clips are seen within the anterior chest. Lungs show no acute parenchymal change. Minimal degenerative change is scattered within the spine. Impression: 1. Incidental findings. Nothing acute is appreciated. Diagnostic code #2
--- NOTE | 2018-12-23 13:39 | CT ---
Head CT Technique: Multiple axial sections through the brain were obtained. Intravenous contrast was not utilized. Comparison: No prior intracranial imaging is available. Findings: Ventricles along with basal cisterns and sulci over the convexities are within normal limits for the patient's age. Symmetric small low-density findings are seen within the basal ganglia most likely due to prominent perivascular spaces. No other abnormal parenchymal densities are seen. No evidence of intracranial hemorrhage. No midline shift or mass effect is seen. Bone window settings were reviewed which show no acute calvarial abnormality. Under aerated left mastoid sinus is seen which is normal variant. No acute sinus disease is seen. Impression: 1. Incidental findings. Nothing acute is seen on noncontrast head CT exam. Diagnostic code #2
[2018-12-23] MEDS ORDERED: Haloperidol Lactate 5 MG/ML SDV IVPUSH ONE (14:05)
[2018-12-23] MEDS ORDERED: diphenhydrAMINE 50 MG/ML SDV IVPUSH ONE (14:05)
[2018-12-23] MEDS ORDERED: Sodium Chloride 0.9% 1,000 ML IV ONE (14:05)
== END 2018-12-23 16:14 | disposition home or self-care (01) ==
LOC: JD.ED 10:57
DX: R07.89 Other chest pain (principal); R51 Headache; J45.909 Unspecified asthma, uncomplicated; I10 Essential (primary) hypertension; F41.9 Anxiety disorder, unspecified; F31.9 Bipolar disorder, unspecified; E03.9 Hypothyroidism, unspecified; Z88.8 Allergy status to other drugs, medicaments and biological substances; Z79.899 Other long term (current) drug therapy
CPT/HCPCS: 36415; 70450; 71046; 80053; 84484; 85007; 85027; 85610; 85730; 93005; 96361; 96374; 96375; 99284; J1200; J1630; J7040

== ENCOUNTER 2019-04-05 19:51 | Emergency (ER) | payer MEDICARE, MEDICAID ==
[2019-04-05 20:02] VITALS: BP 170/84; PULSE 65
[2019-04-05] MEDS ORDERED: Sodium Chloride 0.9% 10 ML Syringe FLUSH PRN (20:44)
[2019-04-05] MEDS ORDERED: Metoclopramide 10 MG/2 ML SDV IVPUSH ONE (20:44)
--- NOTE | 2019-04-05 20:44 | EDM.PDOC ---
ED HPI GENERAL MEDICAL PROBLEM - General Chief Complaint: Upper Extremity Injury/Pain Stated Complaint: INJURED LEFT SHOULDER & LIP Time Seen by Provider: 04/05/19 20:27 Source of Information: Reports: Patient History Limitations: Reports: No Limitations - History of Present Illness INITIAL COMMENTS - FREE TEXT/NARRATIVE: Patient is a 58-year-old male presents the ED complaining of left shoulder pain. Patient states tonight just prior to arrival he was bowling and slipped falling back on his left shoulder and causing the injury. He has decreased range of motion of the left shoulder secondary to pain. He believes it is dislocated. He has no prior history of dislocation of left shoulder. He also has a abrasion to the lower lip. There is no loss of consciousness. He denies any head, neck, or back pain. Pain is isolated to left shoulder. There is no numbness or tingling to his left arm. Denies any headache, vision changes, chest pain, shortness of breath, loose teeth, abdominal pain, nausea vomiting, or any additional complaints. Patient last ate at 1730. Left Shoulder Pain Score (Numeric/FACES): 9 - Related Data Allergies Allergy/AdvReac Type Severity Reaction Status Date / Time indomethacin Allergy Airway Verified 02/11/19 14:11 Tightness Home Meds: Home Meds ARIPiprazole [Abilify] 10 mg PO DAILY 12/18/13 [History] Albuterol Sulfate [Albuterol Sulfate HFA] 18 gm IH Q6H PRN #1 hfa.aer.ad [Rx] FLUoxetine [PROzac] 80 mg PO DAILY 12/18/13 [History] Albuterol [Proventil HFA] 1 puff INH QID PRN 09/06/15 [History] Budesonide/Formoterol [Symbicort 160-4.5 MCG] 2 puff INH BID 09/06/15 [History] Acetaminophen [Tylenol Extra Strength] 1,000 mg PO TID PRN 04/16/16 [History] Levothyroxine [Synthroid] 100 mcg PO ACBREAKFAST 04/16/16 [History] Pantoprazole Sodium [Protonix] 40 mg PO DAILY #30 tablet. 04/17/16 [Rx] Montelukast [Singulair] 10 mg PO BEDTIME 05/14/16 [History] Lactobacillus Acidophilus [Probiotic] 1 each PO DAILY 10/22/16 [History] Multivitamin [Multivitamins] 1 cap PO DAILY 10/22/16 [History] buPROPion [Wellbutrin XL] 150 mg PO DAILY 10/22/16 [History] Colestipol [Colestipol HCl] 1 gm PO QID PRN 09/17/18 [History] Diclofenac Sodium [Voltaren 1% Gel] 1 dose TOP QID PRN 09/17/18 [History] Meloxicam 15 mg PO DAILY 09/17/18 [History] Spironolactone [Aldactone] 25 mg PO DAILY 09/17/18 [History] Tamsulosin HCl 0.4 mg PO DAILY 09/17/18 [History] Tiotropium [Spiriva HandiHaler] 2 puff INH BID 09/17/18 [History] Triamcinolone Acetonide [Kenalog 0.1% Crm] 1 dose TOP BID PRN 09/17/18 [History] Past Medical History HEENT History: Reports: Glaucoma, Impaired Vision Other HEENT History: dentures, glasses Cardiovascular History: Reports: Hypertension Respiratory History: Reports: Asthma, Bronchitis, Recurrent, COPD, Sleep Apnea, SOB Other Respiratory History: rhonchi, wheezes Gastrointestinal History: Reports: Cholelithiasis, Diverticulosis, Gastritis, GERD, Hiatal Hernia, Other (See Below) Other Gastrointestinal History: duodenitis, barretts esophogus, inguinal hernia , c diff, foacal intestinal metaplasia, duodenitis, diverticulosis Genitourinary History: Reports: Other (See Below) Other Genitourinary History: hematuria REGULATORY AFFAIRS INTERN History: Reports: None Musculoskeletal History: Reports: Arthritis, Osteoarthritis Other Musculoskeletal History: R hip pain, R shoulder pain, plantar fascitis Neurological History: Reports: None Psychiatric History: Reports: None, Anxiety, Bipolar, Depression Endocrine/Metabolic History: Reports: Hypothyroidism, Obesity/BMI 30+ Hematologic History: Reports: Anemia Immunologic History: Reports: None Oncologic (Cancer) History: Reports: None Dermatologic History: Reports: None - Infectious Disease History Infectious Disease History: Reports: None - Past Surgical History Head Surgeries/Procedures: Reports: None HEENT Surgical History: Reports: Cataract Surgery, Eye Surgery Cardiovascular Surgical History: Reports: None Respiratory Surgical History: Reports: None GI Surgical History: Reports: Colonoscopy, EGD, Hernia, Inguinal, Hernia Repair/ Other Male Surgical History: Reports: None Endocrine Surgical History: Reports: None Neurological Surgical History: Reports: None Musculoskeletal Surgical History: Reports: Hip Replacement Other Musculoskeletal Surgeries/Procedures:: R hand surgery, R elbow surgery, R total hip replacement, pigeon chest surgery Dermatological Surgical History: Reports: None Social & Family History - Family History Family Medical History: Noncontributory Cardiac: Reports: Hypertension Other Cardiac Family History: Mother Respiratory: Reports: COPD, Other (See Below) Other Respiratory Family Hisory: Emphysema. mother GI: Reports: None : Reports: None Neurological: Reports: None Hematologic: Reports: None Immunologic: Reports: None Dermatologic: Reports: None Oncologic: Reports: None - Tobacco Use Smoking Status *Q: Never Smoker - Caffeine Use Caffeine Use: Reports: None - Recreational Drug Use Recreational Drug Use: No - Living Situation & Occupation Living situation: Reports: Single Occupation: Employed Review of Systems - Review of Systems Review Of Systems: ROS reveals no pertinent complaints other than HPI. ED EXAM, GENERAL - Physical Exam Exam: See Below Exam Limited By: No Limitations General Appearance: Alert, WD/WN, No Apparent Distress Eye Exam: Bilateral Eye: Normal Inspection, PERRL Ears: Hearing Grossly Normal Nose: Normal Inspection, Normal Mucosa, No Blood Throat/Mouth: Normal Teeth, Normal Oropharynx, Normal Voice, No Airway Compromise. No: Normal Lips (superficial abrasion to the lower lip. Mild swelling present.) Head: Atraumatic, Normocephalic Neck: Normal Inspection, Supple, Non-Tender, Full Range of Motion. No: Lymphadenopathy (L), Lymphadenopathy (R) Respiratory/Chest: No Respiratory Distress, Normal Breath Sounds, No Accessory Muscle Use, Chest Non-Tender, Wheezing (throughout expiratory) Cardiovascular: Normal Peripheral Pulses, Regular Rate, Rhythm, No Murmur Peripheral Pulses: 2+: Radial (L), Radial (R) GI/Abdominal: Normal Bowel Sounds, Soft, Non-Tender, No Organomegaly, No Distention Back Exam: Normal Inspection, Full Range of Motion. No: Paraspinal Tenderness, Vertebral Tenderness Extremities: Other (asymmetry noticed left shoulder with increasing pain with palpation. pain is isolated to left shoulder. No pain along the humerus, elbow, forearm, wrist, hand, fingers. Patient's able to flex and extend his wrist, abduct and adduct his fingers, and also perform a thumb hitchhiker sign. ) Neurological: Alert, Oriented, CN II-XII Intact, Normal Cognition, No Motor/ Sensory Deficits Psychiatric: Normal Affect, Normal Mood Skin Exam: Warm, Dry, Intact, Normal Color, No Rash ED TRAUMA EXTREMITY PROCEDURES - Joint Reduction Site: Shoulder (L) Sedation: Conscious Sedation Pre-Procedure NV Status: Normal Post-Procedure NV Status: Normal Technique: Traction/Counter Traction Number of Attempts: 1 Post-Reduction Imaging: Completely Reduced Joint Reduction Complications: No - Splinting Left Upper Extremity Pre-Procedure NV Status: Normal Post-Procedure NV Status: Normal Splint Material: Sling Splint Design: Sling & Swathe Applied & Form Fitted By: Nurse Provider Post-Splint Application NV Check: NV Status Normal, Good Position Complications: No Course - Vital Signs Last Recorded V/S: Last Vital Signs Temp 98.0 F 04/05/19 19:59 Pulse 65 04/05/19 19:59 Resp 20 04/05/19 19:59 BP 170/84 H 04/05/19 19:59 Pulse Ox 94 L 04/05/19 21:27 - Orders/Labs/Meds Orders: Active Orders 24 hr Category Date Time Status Peripheral IV Care [RC] . DIRECTED Care 04/05/19 20:44 Active RT Aerosol Therapy [RC] ASDIRECTED Care 04/05/19 21:16 Active Shoulder 1V Lt [CR] Routine Exams 04/05/19 21:47 Taken Shoulder Comp Lt [CR] Stat Exams 04/05/19 20:27 Taken Sodium Chloride 0.9% [Normal Saline] 1,000 ml Med 04/05/19 20:45 Active IV ASDIRECTED Sodium Chloride 0.9% [Saline Flush] Med 04/05/19 20:44 Active 10 ml FLUSH ASDIRECTED PRN Peripheral IV Insertion Adult [OM.PC] Routine Oth 04/05/19 20:44 Ordered Medication Orders Sodium Chloride (Normal Saline) 1,000 mls @ 150 mls/hr IV ASDIRECTED SORAYA Last Admin: 04/05/19 21:02 Dose: 150 mls/hr Sodium Chloride (Saline Flush) 10 ml FLUSH ASDIRECTED PRN PRN Reason: Keep Vein Open Last Admin: 04/05/19 21:02 Dose: 10 ml Meds: Medications Generic Name Dose Route Start Last Admin Trade Name Roderick PRN Reason Stop Dose Admin Sodium Chloride 1,000 mls @ 150 mls/hr 04/05/19 20:45 04/05/19 21:02 Normal Saline IV 150 mls/hr ASDIRECTED SORAYA Administration Sodium Chloride 10 ml 04/05/19 20:44 04/05/19 21:02 Saline Flush FLUSH 10 ml ASDIRECTED PRN Administration Keep Vein Open Discontinued Medications Generic Name Dose Route Start Last Admin Trade Name Roderick PRN Reason Stop Dose Admin Albuterol 1.25 mg 04/05/19 21:15 04/05/19 21:25 Proventil Neb Soln NEB 04/05/19 21:16 1.25 mg ONETIME ONE Administration Albuterol Confirm 04/05/19 21:23 Proventil Neb Soln Administered 04/05/19 21:24 Dose 1.25 mg .ROUTE .STK-MED ONE Hydromorphone HCl 0.5 mg 04/05/19 20:45 04/05/19 21:01 Dilaudid IVPUSH 04/05/19 20:46 0.5 mg ONETIME ONE Administration Ketamine HCl Confirm 04/05/19 21:24 Ketalar Administered 04/05/19 21:25 Dose 500 mg .ROUTE .STK-MED ONE Metoclopramide HCl 10 mg 04/05/19 20:44 04/05/19 21:01 Reglan IVPUSH 04/05/19 20:45 10 mg ONETIME ONE Administration Midazolam HCl Confirm 04/05/19 21:24 Versed 1 Mg/Ml Administered 04/05/19 21:25 Dose 2 mg .ROUTE .STK-MED ONE - Re-Assessments/Exams Free Text/Narrative Re-Assessment/Exam: X-ray of the left shoulder was obtained indicating he does have a anterior dislocation. No obvious bony abnormalities noted. Final interpretation is pending. I ordered IV with NS 125 mL per hour, Reglan 10 mg IV, and also Dilaudid 0.5 mg IVP. Anesthesia has been called in for conscious sedation and closed reduction left shoulder dislocation. Risks, benefits, and alternative treatments discussed with patient. Patient voiced understanding and signed consent form in agreement to proceed. Under conscious sedation with ketamine and versed. We were successful in reducing the dislocated shoulder. X-rays confirmed reduction of dislocation. X- rays reviewed with Dr. Monae. Final interpretation is pending. 04/05/19 22:38 Reassessment, patient has full sensation of the left arm with gentle touch. Able to abduct, adduct the fingers against resistance. able to flex and extend at the wrist and perform hitchhikers thumb. Once sedation has worn off patient will be discharged home. Return precautions have been discussed with the patient. Home instructions were discussed with the patient as well. He had no further questions or concerns and agreed with plan. Departure - Departure Time of Disposition: 22:10 Disposition: Home, Self-Care 01 Condition: Good Clinical Impression: Dislocation, shoulder closed Qualifiers: Encounter type: initial encounter Laterality: left Qualified Code(s): S43.005A - Unspecified dislocation of left shoulder joint, initial encounter - Discharge Information Instructions: Shoulder Dislocation, Shoulder Separation, Pain Medicine Instructions, [id number] Referrals: Husam Stone MD [Physician] - Forms: ED Department Discharge, ED Return to Work/School Form Additional Instructions: May take sling off to bath. Do not lift arm above shoulder or away from the body. Perform the cog wheel exercises as instructed. Apply ice to the affected Shoulder 3 times a day, 20 minutes in duration, do not apply ice directly on the skin. For severe pain take [place] one tab every [address] taking the [place]. Call and make an appointment to see Dr. Stone in 7 days for reevaluation. He turned to the ED at any time you develop any new or worsening symptoms. - My Orders Last 24 Hours: My Active Orders 04/05/19 20:27 Shoulder Comp Lt [CR] Stat 04/05/19 20:44 Peripheral IV Care [RC] . DIRECTED Sodium Chloride 0.9% [Saline Flush] 10 ml FLUSH ASDIRECTED PRN Peripheral IV Insertion Adult [OM.PC] Routine 04/05/19 20:45 Sodium Chloride 0.9% [Normal Saline] 1,000 ml IV ASDIRECTED 04/05/19 21:47 Shoulder 1V Lt [CR] Routine - Assessment/Plan Last 24 Hours: My Active Orders 04/05/19 20:27 Shoulder Comp Lt [CR] Stat 04/05/19 20:44 Peripheral IV Care [RC] . DIRECTED Sodium Chloride 0.9% [Saline Flush] 10 ml FLUSH ASDIRECTED PRN Peripheral IV Insertion Adult [OM.PC] Routine 04/05/19 20:45 Sodium Chloride 0.9% [Normal Saline] 1,000 ml IV ASDIRECTED 04/05/19 21:47 Shoulder 1V Lt [CR] Routine
[2019-04-05] MEDS ORDERED: HYDROmorphone 0.5 MG/0.5 ML Syringe IVPUSH ONE (20:45)
[2019-04-05] MEDS ORDERED: Sodium Chloride 0.9% 1,000 ML IV SCH (20:45)
[2019-04-05] MEDS ORDERED: Albuterol 0.042% 1.25 MG/3 ML Neb Soln NEB ONE (21:15)
--- NOTE | 2019-04-05 21:17 | PCM.PREANE ---
Preanesthetic Assessment - Procedure Proposed Procedure: left shoulder reduction - Anesthesia/Transfusion/Family Hx Anesthesia History: Prior Anesthesia Without Reaction Family History of Anesthesia Reaction: No Transfusion History: No Prior Transfusion(s) Intubation History: Unknown - Review of Systems General: No Symptoms Pulmonary: Shortness of Breath (copd, asthma, emphyema, sob with activity ) Cardiovascular: No Symptoms Gastrointestinal: No Symptoms Neurological: No Symptoms Other: Reports: Thyroid Problems, Depression - Physical Assessment NPO Status Date: 04/05/19 NPO Status Time: 18:00 Vital Signs: Last Vital Signs Temp 36.7 C 04/05/19 19:59 Pulse 65 04/05/19 19:59 Resp 20 04/05/19 19:59 BP 170/84 H 04/05/19 19:59 Pulse Ox 98 04/05/19 19:59 Height: 1.8 m Weight: 118.388 kg ASA Class: 3 Mental Status: Alert & Oriented x3 Airway Class: Mallampati = 2 Dentition: Reports: Dentures (uppers and lowers, lip abrasion from fall earlier with accident ) Thyro-Mental Finger Breadths: 3 Mouth Opening Finger Breadths: 4 ROM/Head Extension: Full Lungs: Clear to Auscultation, Normal Respiratory Effort Cardiovascular: Regular Rate, Regular Rhythm - Allergies Allergies/Adverse Reactions: Allergies Allergy/AdvReac Type Severity Reaction Status Date / Time indomethacin Allergy Airway Verified 02/11/19 14:11 Tightness - Blood Blood Available: No - Anesthesia Plan Pre-Op Medication Ordered: None - Acknowledgements Anesthesia Type Planned: MAC Pt an Appropriate Candidate for the Planned Anesthesia: Yes Alternatives and Risks of Anesthesia Discussed w Pt/Guardian: Yes Pt/Guardian Understands and Agrees with Anesthesia Plan: Yes PreAnesthesia Questionnaire HEENT History: Reports: Glaucoma, Impaired Vision Other HEENT History: dentures, glasses Cardiovascular History: Reports: Hypertension Respiratory History: Reports: Asthma, Bronchitis, Recurrent, COPD, Sleep Apnea, SOB Other Respiratory History: rhonchi, wheezes Gastrointestinal History: Reports: Cholelithiasis, Diverticulosis, Gastritis, GERD, Hiatal Hernia, Other (See Below) Other Gastrointestinal History: duodenitis, barretts esophogus, inguinal hernia , c diff, foacal intestinal metaplasia, duodenitis, diverticulosis Genitourinary History: Reports: Other (See Below) Other Genitourinary History: hematuria GENERAL ACCOUNTANT History: Reports: None Musculoskeletal History: Reports: Arthritis, Osteoarthritis Other Musculoskeletal History: R hip pain, R shoulder pain, plantar fascitis Neurological History: Reports: None Psychiatric History: Reports: None, Anxiety, Bipolar, Depression Endocrine/Metabolic History: Reports: Hypothyroidism, Obesity/BMI 30+ Hematologic History: Reports: Anemia Immunologic History: Reports: None Oncologic (Cancer) History: Reports: None Dermatologic History: Reports: None - Infectious Disease History Infectious Disease History: Reports: None - Past Surgical History Head Surgeries/Procedures: Reports: None HEENT Surgical History: Reports: Cataract Surgery, Eye Surgery Cardiovascular Surgical History: Reports: None Respiratory Surgical History: Reports: None GI Surgical History: Reports: Colonoscopy, EGD, Hernia, Inguinal, Hernia Repair/ Other Male Surgical History: Reports: None Endocrine Surgical History: Reports: None Neurological Surgical History: Reports: None Musculoskeletal Surgical History: Reports: Hip Replacement Other Musculoskeletal Surgeries/Procedures:: R hand surgery, R elbow surgery, R total hip replacement, pigeon chest surgery Dermatological Surgical History: Reports: None - SUBSTANCE USE Smoking Status *Q: Never Smoker Recreational Drug Use History: No - HOME MEDS Home Medications: Home Meds ARIPiprazole [Abilify] 10 mg PO DAILY 12/18/13 [History] Albuterol Sulfate [Albuterol Sulfate HFA] 18 gm IH Q6H PRN #1 hfa.aer.ad [Rx] FLUoxetine [PROzac] 80 mg PO DAILY 12/18/13 [History] Albuterol [Proventil HFA] 1 puff INH QID PRN 09/06/15 [History] Budesonide/Formoterol [Symbicort 160-4.5 MCG] 2 puff INH BID 09/06/15 [History] Acetaminophen [Tylenol Extra Strength] 1,000 mg PO TID PRN 04/16/16 [History] Levothyroxine [Synthroid] 100 mcg PO ACBREAKFAST 04/16/16 [History] Pantoprazole Sodium [Protonix] 40 mg PO DAILY #30 tablet.dr 04/17/16 [Rx] Montelukast [Singulair] 10 mg PO BEDTIME 05/14/16 [History] Lactobacillus Acidophilus [Probiotic] 1 each PO DAILY 10/22/16 [History] Multivitamin [Multivitamins] 1 cap PO DAILY 10/22/16 [History] buPROPion [Wellbutrin XL] 150 mg PO DAILY 10/22/16 [History] Colestipol [Colestipol HCl] 1 gm PO QID PRN 09/17/18 [History] Diclofenac Sodium [Voltaren 1% Gel] 1 dose TOP QID PRN 09/17/18 [History] Meloxicam 15 mg PO DAILY 09/17/18 [History] Spironolactone [Aldactone] 25 mg PO DAILY 09/17/18 [History] Tamsulosin HCl 0.4 mg PO DAILY 09/17/18 [History] Tiotropium [Spiriva HandiHaler] 2 puff INH BID 09/17/18 [History] Triamcinolone Acetonide [Kenalog 0.1% Crm] 1 dose TOP BID PRN 09/17/18 [History] - CURRENT (IN HOUSE) MEDS Current Meds: Current Medications Sodium Chloride (Normal Saline) 1,000 mls @ 150 mls/hr IV ASDIRECTED SORAYA Last Admin: 04/05/19 21:02 Dose: 150 mls/hr Sodium Chloride (Saline Flush) 10 ml FLUSH ASDIRECTED PRN PRN Reason: Keep Vein Open Last Admin: 04/05/19 21:02 Dose: 10 ml Discontinued Medications Hydromorphone HCl (Dilaudid) 0.5 mg IVPUSH ONETIME ONE Stop: 04/05/19 20:46 Last Admin: 04/05/19 21:01 Dose: 0.5 mg Metoclopramide HCl (Reglan) 10 mg IVPUSH ONETIME ONE Stop: 04/05/19 20:45 Last Admin: 04/05/19 21:01 Dose: 10 mg
[2019-04-05] MEDS ORDERED: Albuterol 0.042% 1.25 MG/3 ML Neb Soln ONE (21:23)
[2019-04-05] MEDS ORDERED: Ketamine 500 mg/10 ML MDV ONE (21:24)
[2019-04-05] MEDS ORDERED: Midazolam 1 MG/ML 2 ML SDV ONE (21:24)
--- NOTE | 2019-04-06 10:39 | CR ---
Left shoulder: Two views of the left shoulder were obtained. Comparison: Previous left shoulder study performed earlier on the same day (8:33 PM). Previous shoulder dislocation has been reduced. No additional abnormality is appreciated. Impression: 1. Reduction of previous left shoulder dislocation. Diagnostic code #1
--- NOTE | 2019-04-06 10:39 | CR ---
Left shoulder: Two views of the left shoulder were obtained. Comparison: No previous left shoulder exam. Anterior subcoracoid dislocation is seen. No additional abnormality is noted on two-view left shoulder study. Impression: 1. Left shoulder dislocation. Diagnostic code #3
== END 2019-04-05 23:41 | disposition home or self-care (01) ==
LOC: JD.ED 19:51
DX: S43.004A Unspecified dislocation of right shoulder joint, initial encounter (principal); I10 Essential (primary) hypertension; J44.9 Chronic obstructive pulmonary disease, unspecified; K21.9 Gastro-esophageal reflux disease without esophagitis; F41.9 Anxiety disorder, unspecified; F32.9 Major depressive disorder, single episode, unspecified; E03.9 Hypothyroidism, unspecified; E66.9 Obesity, unspecified; Z86.2 Personal history of diseases of the blood and blood-forming organs and certain disorders involving the immune mechanism; Z88.8 Allergy status to other drugs, medicaments and biological substances; Z79.899 Other long term (current) drug therapy; W01.0XXA Fall on same level from slipping, tripping and stumbling without subsequent striking against object, initial encounter; Y93.54 Activity, bowling
CPT/HCPCS: 23655; 73020; 73030; 94640; 96361; 96374; 96375; 99152; 99153; 99283; J1170; J2250; J2765; J7040

== ENCOUNTER 2020-03-23 13:01 | Emergency (ER) | payer OTHER, MEDICARE, MEDICAID ==
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
[2020-03-23] MEDS ORDERED: Diphtheria,Pertussis(Acell),Tetanus Vaccine 0.5 ML Syringe IM ONE (14:17)
--- NOTE | 2020-03-23 14:45 | CR ---
Left shoulder: Single AP view of the left shoulder was obtained. Comparison: Prior left shoulder study of 04/05/19. Left shoulder prosthesis is seen. Components are aligned. Skin shawn are present. No discrete fracture or other abnormality is appreciated. Impression: 1. Recently placed left shoulder prosthesis. 2. Nothing acute is appreciated. Diagnostic code #2 This report was dictated in MDT
--- NOTE | 2020-03-23 15:07 | CT ---
CT cervical spine Technique: Multiple axial sections through the cervical spine were obtained from above C1 inferiorly to the top of T2. Reconstructed sagittal and coronal images were obtained. Comparison: No prior cervical spine imaging is available. Findings: Fairly severe disc space narrowing at C3-4 and C4-5. Mild disc space narrowing is seen posteriorly at C5-6. Posterior osteophytes are seen at these 3 levels. Mild degenerative change is noted between the dens and anterior arch of C1. Mild degenerative change is scattered within the apophyseal joints. Slightly abnormal cervical curvature is seen which is felt to be degenerative in etiology. Incomplete arch is noted of C1 as a normal variant. No fracture is appreciated. Left neural foramina at C4-5 is moderately narrowed. Other neural foramina are fairly well patent. Degenerative change with slight spurring is noted within the uncovertebral joints at C3-4 and C4-5. Impression: 1. Degenerative change as noted above. 2. No acute fracture or acute subluxation is seen. Diagnostic code #2 This report was dictated in MDT
--- NOTE | 2020-03-23 15:12 | CT ---
Head CT Technique: Multiple axial sections through the brain were obtained. Intravenous contrast was not utilized. Comparison: Prior head CT study of 12/23/18. Findings: Ventricles along with basal cisterns and sulci over the convexities are mildly prominent. Symmetric low density findings are noted with both basal ganglia most likely relating to prominent perivascular spaces. No other abnormal parenchymal densities are seen. No evidence of intracranial hemorrhage. No midline shift or mass-effect is seen. Bone window settings were reviewed which show no acute findings within the visualized paranasal sinuses or mastoid sinuses. No acute calvarial finding is seen. Impression: 1. Nothing acute is appreciated on noncontrast CT study of the brain. No appreciable change from previous study is seen. Diagnostic code #2 This report was dictated in MDT
[2020-03-23 18:10] VITALS: BP 154/74; PULSE 75
== END 2020-03-23 16:17 | disposition home or self-care (01) ==
LOC: JD.ED 13:01
DX: S00.93XA Contusion of unspecified part of head, initial encounter (principal); S00.81XA Abrasion of other part of head, initial encounter; M25.512 Pain in left shoulder; G89.18 Other acute postprocedural pain; I10 Essential (primary) hypertension; J44.9 Chronic obstructive pulmonary disease, unspecified; K21.9 Gastro-esophageal reflux disease without esophagitis; M19.90 Unspecified osteoarthritis, unspecified site; F31.9 Bipolar disorder, unspecified; F41.9 Anxiety disorder, unspecified; E03.9 Hypothyroidism, unspecified; E66.9 Obesity, unspecified; Z68.38 Body mass index [BMI] 38.0-38.9, adult; Z88.8 Allergy status to other drugs, medicaments and biological substances; Z79.899 Other long term (current) drug therapy; Z23 Encounter for immunization; V49.50XA Passenger injured in collision with unspecified motor vehicles in traffic accident, initial encounter
CPT/HCPCS: 70450; 70450-26; 72125; 72125-26; 73020-26-LT; 73020-LT; 90471; 90715; 99282; 99284-25

== ENCOUNTER 2020-03-26 11:25 | Emergency (ER) | payer MEDICARE, MEDICAID ==
[2020-03-26] MEDS ORDERED: Sodium Chloride 0.9% 10 ML Syringe FLUSH PRN (11:41)
[2020-03-26] MEDS ORDERED: Sodium Chloride 0.9% 1,000 ML IV ONE (11:41)
[2020-03-26] MEDS ORDERED: Ondansetron 4 MG/2 ML SDV IVPUSH ONE (11:42)
[2020-03-26 11:45] VITALS: BP 144/87; PULSE 69
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
--- NOTE | 2020-03-26 12:21 | CR ---
Chest: PA and lateral views of the chest were obtained. Comparison: Prior chest x-ray of 02/11/90. Heart is enlarged. Small bilateral pleural effusions are seen. Difficult to exclude minimal CHF. Previous sternotomy is noted. Left shoulder prosthesis is seen which is likely recent in placement as skin shawn are present. Bony structures appear without acute finding. Impression: 1. Cardiomegaly and small bilateral pleural effusions. Difficult to exclude mild CHF. 2. Other findings as noted above. Diagnostic code #3 Study was dictated in MDT
--- NOTE | 2020-03-26 12:22 | CR ---
Abdomen: Supine and upright views of the abdomen were obtained. Comparison: No prior abdominal imaging is available. Right hip prosthesis is noted. Prior cholecystectomy is seen. Surgical clips are seen within the lower chest. Bowel gas pattern is normal. No abnormal soft tissue findings are seen. No abnormal calcifications are identified. Impression: 1. Findings as noted above. 2. Nothing acute is appreciated. Diagnostic code #2 Study was dictated in MDT
[2020-03-26] MEDS ORDERED: Loperamide 2 MG Cap PO ONE (13:10)
[2020-03-26] MEDS ORDERED: Albuterol/Ipratropium 3.0-0.5 MG/3 ML Neb Soln NEB ONE (13:19)
== END 2020-03-26 14:10 | disposition home or self-care (01) ==
LOC: JD.ED 11:25
DX: J43.9 Emphysema, unspecified (principal); K52.9 Noninfective gastroenteritis and colitis, unspecified; I10 Essential (primary) hypertension; K21.9 Gastro-esophageal reflux disease without esophagitis; F31.9 Bipolar disorder, unspecified; F41.9 Anxiety disorder, unspecified; E03.9 Hypothyroidism, unspecified; E66.9 Obesity, unspecified; Z88.8 Allergy status to other drugs, medicaments and biological substances; M19.90 Unspecified osteoarthritis, unspecified site; Z87.891 Personal history of nicotine dependence; Z68.37 Body mass index [BMI] 37.0-37.9, adult
CPT/HCPCS: 36415; 71046; 74019; 80053; 83880; 85025; 94640; 96361; 96374; 99285; A9270; J2405; J7030; 99283; J7620-GY

== ENCOUNTER 2020-05-01 06:29 | Day surgery (SDC) | payer MEDICARE, MEDICAID ==
[~2020-05-01 06:29] MED LIST changes: -Albuterol 0.083% 2.5 MG/3 ML Neb Soln NEB PRN
--- NOTE | 2020-05-01 07:36 | PCM.PREANE ---
Preanesthetic Assessment - Procedure Proposed Procedure: EGD and colonoscopy - Anesthesia/Transfusion/Family Hx Anesthesia History: Prior Anesthesia Without Reaction Family History of Anesthesia Reaction: No Transfusion History: No Prior Transfusion(s) Intubation History: Unknown - Review of Systems General: No Symptoms Pulmonary: No Symptoms Cardiovascular: No Symptoms Gastrointestinal: No Symptoms, Other (GERD on medication which treates ) Neurological: No Symptoms Other: Reports: Thyroid Problems, Depression - Physical Assessment NPO Status Date: 04/30/20 NPO Status Time: 23:00 (bowel prep ) Height: 27.94 cm Weight: 115 kg ASA Class: 3 Mental Status: Alert & Oriented x3 Airway Class: Mallampati = 1 Dentition: Reports: Dentures (upper and lowers ) Thyro-Mental Finger Breadths: 2 Mouth Opening Finger Breadths: 4 ROM/Head Extension: Full Lungs: Clear to Auscultation, Normal Respiratory Effort Cardiovascular: Regular Rate, Regular Rhythm - Lab Values: Laboratory Last Values SARS-CoV-2 (PCR) Not detected (NOT DETECT) 04/27/20 11:25 - Allergies Allergies/Adverse Reactions: Allergies Allergy/AdvReac Type Severity Reaction Status Date / Time indomethacin Allergy Severe Airway Verified 04/28/20 12:02 Tightness - Blood Blood Available: No - Anesthesia Plan Pre-Op Medication Ordered: Other (all inhalers from home he was instructed to take( 3 of them) ) - Acknowledgements Anesthesia Type Planned: MAC Pt an Appropriate Candidate for the Planned Anesthesia: Yes Alternatives and Risks of Anesthesia Discussed w Pt/Guardian: Yes Pt/Guardian Understands and Agrees with Anesthesia Plan: Yes PreAnesthesia Questionnaire HEENT History: Reports: Glaucoma, Impaired Vision Other HEENT History: dentures, glasses Cardiovascular History: Reports: High Cholesterol, Hypertension, Other (See Below) Other Cardiovascular History: heart cath Respiratory History: Reports: Asthma, Bronchitis, Recurrent, COPD, Sleep Apnea, SOB Other Respiratory History: rhonchi, wheezes Gastrointestinal History: Reports: Cholelithiasis, Diverticulosis, Gastritis, GERD, Hiatal Hernia, Other (See Below) Other Gastrointestinal History: barretts esophagus, inguinal hernia, c diff, focal intestinal metaplasia, duodenitis, diverticulosis Genitourinary History: Reports: Other (See Below) Other Genitourinary History: hematuria DIRECTOR OF PEDIATRIC REHABILITATION History: Reports: None Musculoskeletal History: Reports: Arthritis, Osteoarthritis Other Musculoskeletal History: R hip pain, R shoulder pain, plantar fascitis Neurological History: Reports: None Psychiatric History: Reports: Anxiety, Bipolar, Depression Endocrine/Metabolic History: Reports: Hypothyroidism, Obesity/BMI 30+ Hematologic History: Reports: Anemia Immunologic History: Reports: None Oncologic (Cancer) History: Reports: None Dermatologic History: Reports: None - Infectious Disease History Infectious Disease History: Reports: None - Past Surgical History Head Surgeries/Procedures: Reports: None HEENT Surgical History: Reports: Cataract Surgery, Eye Surgery Cardiovascular Surgical History: Reports: None Respiratory Surgical History: Reports: None GI Surgical History: Reports: Cholecystectomy, Colonoscopy, EGD, Hernia, Inguinal, Hernia Repair/Other Female Surgical History: Reports: None Male Surgical History: Reports: None Endocrine Surgical History: Reports: None Neurological Surgical History: Reports: None Musculoskeletal Surgical History: Reports: Hip Replacement, Shoulder Replacement Other Musculoskeletal Surgeries/Procedures:: R hand surgery, R elbow surgery, R total hip replacement, pigeon chest surgery Oncologic Surgical History: Reports: None Dermatological Surgical History: Reports: None - SUBSTANCE USE Smoking Status *Q: Former Smoker Recreational Drug Use History: No - HOME MEDS Home Medications: Home Meds Albuterol [Proventil HFA] 1 puff INH QID PRN 09/06/15 [History] Acetaminophen [Tylenol Extra Strength] 1,000 mg PO TID PRN 04/16/16 [History] Levothyroxine [Synthroid] 100 mcg PO ACBREAKFAST 04/16/16 [History] Pantoprazole Sodium [Protonix] 40 mg PO DAILY #30 tablet.dr 04/17/16 [Rx] Montelukast [Singulair] 10 mg PO BEDTIME 05/14/16 [History] Lactobacillus Acidophilus [Probiotic] 1 each PO DAILY 10/22/16 [History] Multivitamin [Multivitamins] 1 cap PO BEDTIME 10/22/16 [History] buPROPion [Wellbutrin XL] 150 mg PO DAILY 10/22/16 [History] Meloxicam 15 mg PO DAILY 09/17/18 [History] Spironolactone [Aldactone] 25 mg PO DAILY 09/17/18 [History] Tamsulosin HCl 0.4 mg PO DAILY 09/17/18 [History] Tiotropium [Spiriva HandiHaler] 2 puff INH BID 09/17/18 [History] FLUoxetine [PROzac] 80 mg PO DAILY 03/23/20 [History] Rosuvastatin [Crestor] 10 mg PO DAILY 03/23/20 [History] amLODIPine [Norvasc] 2.5 mg PO DAILY 03/23/20 [History] traZODone HCl [Trazodone HCl] 75 mg PO BEDTIME 03/23/20 [History] Albuterol [Proventil Neb Soln] 1 dose NEB Q4H PRN 04/28/20 [History] Aspirin [Halfprin] 81 mg PO DAILY 04/28/20 [History] Budesonide/Formoterol Fumarate [Symbicort 160-4.5 Mcg Inhaler] 2 puff INH BID 04/28/20 [History] Colestipol [Colestipol HCl] 1 gm PO ASDIRECTED PRN 04/28/20 [History] Cranberry 500 mg PO DAILY 04/28/20 [History] Nitroglycerin [Nitrostat] 0.4 mg PO ASDIRECTED PRN 04/28/20 [History] Triamcinolone Acetonide [Triamcinolone Acetonide 0.1% Crm] 1 dose TOP BID PRN 04/28/20 [History] - CURRENT (IN HOUSE) MEDS Current Meds: Current Medications Lactated Ringer's (Ringers, Lactated) 1,000 mls @ 125 mls/hr IV ASDIRECTED SORAYA Stop: 05/01/20 23:00 Lidocaine/Sodium Bicarbonate (Buffered Lidocaine 1% In Ns 8.4%) 0.25 ml IDERM ONETIME PRN PRN Reason: Prior to IV Start Stop: 05/01/20 23:00 Sodium Chloride (Saline Flush) 10 ml FLUSH ASDIRECTED PRN PRN Reason: Keep Vein Open Stop: 05/01/20 23:00
[2020-05-01] MEDS ORDERED: Propofol 200 MG/20 ML SDV ONE ×2 (07:48→08:32)
[2020-05-01] MEDS ORDERED: Lidocaine 1% 4 ML ONE (07:48)
[2020-05-01] MEDS ORDERED: Lactated Ringers 1,000 ML ONE (08:13)
--- NOTE | 2020-05-01 09:09 | PCM48HPAN ---
Post Anesthesia Note - EVALUATION WITHIN 48HRS OF ANESTHETIC Vital Signs in Normal Range: Yes Patient Participated in Evaluation: Yes Respiratory Function Stable: Yes Airway Patent: Yes Cardiovascular Function Stable: Yes Hydration Status Stable: Yes Pain Control Satisfactory: Yes Nausea and Vomiting Control Satisfactory: Yes Mental Status Recovered: Yes Vital Signs: Last Vital Signs Temp 36.4 C 05/01/20 09:00 Pulse 61 05/01/20 09:00 Resp 15 05/01/20 09:00 BP 135/72 05/01/20 09:00 Pulse Ox 100 05/01/20 09:00
[2020-05-01 09:42] VITALS: BP 117/88; PULSE 62
--- NOTE | 2020-05-01 10:10 | PROC ---
DATE OF OPERATION: 05/01/2020 SURGEON: Sara Wang MD PREOPERATIVE DIAGNOSIS: Anemia. POSTOPERATIVE DIAGNOSIS: Anemia. PROCEDURE: 1. Esophagogastroduodenoscopy. 2. Colonoscopy. ANESTHESIA: Monitored anesthesia care. ESTIMATED BLOOD LOSS: Minimal. COMPLICATIONS: None. INDICATION AND CONSENT: The patient is a 59-year-old male who was found to be anemic for unknown reason. The patient has iron-deficiency anemia. He is asymptomatic. He has received iron transfusions. He was sent to my clinic for evaluation. I recommended we proceed with EGD and colonoscopy to evaluate him. We discussed risks, benefits, and alternatives and informed consent was obtained. DESCRIPTION OF PROCEDURE: The patient was taken to the procedure room, placed in left lateral decubitus position. Time-out was performed. The patient was put to sleep with MAC. Then, we began with an EGD. Scope was inserted into the mouth and taken all the way to the second portion of duodenum. Entire examined duodenal was normal. In stomach, there was diffuse minimal gastritis without any ulceration or erosions. Biopsies were taken from the stomach body and antrum for pathologic evaluation. On retroflexion, there was a small sliding hiatal hernia. There was grade B esophagitis at the distal esophagus. Biopsies were taken for evaluation. EBL was minimal. At this point, air was suctioned out from the stomach, and scope was withdrawn. There was no obvious reason for bleeding. Colonoscopy was set up. Digital rectal examination and perianal exam were normal. Scope was inserted all the way to the cecum. Prep was good. Appendiceal orifice was photographed. Scope was taken to the terminal ileum. The terminal ileum appeared to be normal. The cecum also appeared to be normal. There was a 3 mm polyp at the edge of appendiceal orifice. This was removed with Jumbo forceps. EBL was minimal. Then, we withdrew the scope slowly examining the entirety of the colonic wall. There were multiple large and small diverticulum, at least 1 to 2 of them were in the ascending colon, few were in the transverse colon, and multiple in the descending and sigmoid colon. There was no other stigmata of bleeding. There was no angiodysplasia. There was no AVM. There were no ulcers in the colon that were detected. In the sigmoid colon, there was another 3 mm polyp that was removed with Jumbo forceps. Removal was complete as well, and then on retroflexion, there were no hemorrhoids or rectal problems. At this time, air was suctioned out from the colon, and the exam was concluded. In conclusion, based on this exam, there was no clear etiology for his iron- deficiency anemia. The patient is to return home. Continue medical management. If he continues to be anemic, fecal occult blood tests should be undertaken, and if that is positive, I will recommend patient get a capsule endoscopy. The patient will follow up with our STUDY DIRECTOR at the surgery clinic in 1 week. CHAMP /[id number] VARUN
== END 2020-05-01 09:47 | disposition home or self-care (01) ==
LOC: JD.SDS 06:29
PROVIDERS: ATTEND Surgery
DX: K63.5 Polyp of colon (principal); K22.70 Barrett's esophagus without dysplasia; K29.50 Unspecified chronic gastritis without bleeding; K31.89 Other diseases of stomach and duodenum; K44.9 Diaphragmatic hernia without obstruction or gangrene; K21.00 Gastro-esophageal reflux disease with esophagitis, without bleeding; K57.30 Diverticulosis of large intestine without perforation or abscess without bleeding; D50.9 Iron deficiency anemia, unspecified; Z01.812 Encounter for preprocedural laboratory examination; Z20.828 Contact with and (suspected) exposure to other viral communicable diseases; Z98.890 Other specified postprocedural states; Z90.49 Acquired absence of other specified parts of digestive tract; Z87.891 Personal history of nicotine dependence; Z79.899 Other long term (current) drug therapy
CPT/HCPCS: 43239; 45380; J2001; J2704; J7120; U0002; 00813; 88305

== ENCOUNTER 2020-05-29 14:59 | Emergency (ER) | payer MEDICARE, MEDICAID ==
[2020-05-29 15:14] VITALS: BP 166/74; PULSE 80
[2020-05-29] MEDS ORDERED: HYDROmorphone 1 MG/ML Syringe IM ONE (16:24)
--- NOTE | 2020-05-29 16:24 | CR ---
PROCEDURE INFORMATION: Exam: XR Bilateral Hips with Pelvis when Performed Exam date and time: 05/29/2020 3:47 PM Age: 59 years old Clinical indication: Hip pain; Left hip TECHNIQUE: Imaging protocol: XR bilateral hips with pelvis when performed. Views: 2 views. COMPARISON: CT ABD/PEL WITH 06/23/2013 11:57 AM FINDINGS: Bones/joints: Patient has had an interval right hip arthroplasty. No evidence for loosening of the visualized surgical hardware. Moderate loss of joint space height at the left hip with subchondral sclerosis and subchondral cysts at the left hip. Findings have increased compared with the previous CT scan. No acute fracture. No dislocation. Normal bone mineralization. Soft tissues: No soft tissue swelling. No radiopaque foreign body. IMPRESSION: 1. No acute fracture. MRI would be recommended if clinical concern for fracture persists. 2. Moderate degenerative change at the left hip, increased compared with the previous CT scan. 3. Patient has had an interval right hip arthroplasty. No evidence for loosening of the visualized surgical hardware. Thank you for allowing us to participate in the care of your patient. Dictated and Authenticated by: Mariana Ly MD 05/29/2020 5:23 PM Central Time ([place] & [place]) VARUN
--- NOTE | 2020-05-29 16:48 | EDM.PDOC ---
ED HPI GENERAL MEDICAL PROBLEM - General Chief Complaint: Abdominal Pain Stated Complaint: GROIN PAIN Time Seen by Provider: 05/29/20 15:10 Source of Information: Reports: Patient History Limitations: Reports: No Limitations - History of Present Illness INITIAL COMMENTS - FREE TEXT/NARRATIVE: The patient presents with left groin pain. He had this for about [address] Wang last week after a CT of his abdomen and pelvis. He was worried about a hernia. He has had hernias before. He did not feel a bulge and on exam Dr Wang did not find a hernia. He also had an EGD and colonoscopy on 05/01/20. He has no fever, chills, cough, congestion, runny nose, chest pain, shortness of breath, abdominal pain, nausea or vomiting. He has no pain when he urinates and he has no hematuria. Onset: Gradual Duration: Week(s): (2) Quality: Reports: Sharp Severity: Moderate Improves with: Reports: None Worsens with: Reports: None Associated Symptoms: Reports: No Other Symptoms Pelvic Pain Score (Numeric/FACES): 10 - Related Data Allergies Allergy/AdvReac Type Severity Reaction Status Date / Time indomethacin Allergy Severe Airway Verified 05/29/20 15:14 Tightness Home Meds: Home Meds Albuterol [Proventil HFA] 1 puff INH QID PRN 09/06/15 [History] Acetaminophen [Tylenol Extra Strength] 1,000 mg PO TID PRN 04/16/16 [History] Levothyroxine [Synthroid] 100 mcg PO ACBREAKFAST 04/16/16 [History] Pantoprazole Sodium [Protonix] 40 mg PO DAILY #30 tablet. 04/17/16 [Rx] Montelukast [Singulair] 10 mg PO BEDTIME 05/14/16 [History] Lactobacillus Acidophilus [Probiotic] 1 each PO DAILY 10/22/16 [History] Multivitamin [Multivitamins] 1 cap PO BEDTIME 10/22/16 [History] buPROPion [Wellbutrin XL] 150 mg PO DAILY 10/22/16 [History] Meloxicam 15 mg PO DAILY 09/17/18 [History] Spironolactone [Aldactone] 25 mg PO DAILY 09/17/18 [History] Tamsulosin HCl 0.4 mg PO DAILY 09/17/18 [History] Tiotropium [Spiriva HandiHaler] 2 puff INH BID 09/17/18 [History] FLUoxetine [PROzac] 80 mg PO DAILY 03/23/20 [History] Rosuvastatin [Crestor] 10 mg PO DAILY 03/23/20 [History] amLODIPine [Norvasc] 2.5 mg PO DAILY 03/23/20 [History] traZODone HCl [Trazodone HCl] 75 mg PO BEDTIME 03/23/20 [History] Albuterol [Proventil Neb Soln] 1 dose NEB Q4H PRN 04/28/20 [History] Aspirin [Halfprin] 81 mg PO DAILY 04/28/20 [History] Budesonide/Formoterol Fumarate [Symbicort 160-4.5 Mcg Inhaler] 2 puff INH BID 04/28/20 [History] Colestipol [Colestipol HCl] 1 gm PO ASDIRECTED PRN 04/28/20 [History] Cranberry 500 mg PO DAILY 04/28/20 [History] Nitroglycerin [Nitrostat] 0.4 mg PO ASDIRECTED PRN 04/28/20 [History] Triamcinolone Acetonide [Triamcinolone Acetonide 0.1% Crm] 1 dose TOP BID PRN 04/28/20 [History] Hydrocodone/Acetaminophen [Hydrocodone-Acetamin 5-325 mg] 1 - 2 each PO Q6HR PRN #20 tablet 05/29/20 [Rx] Past Medical History HEENT History: Reports: Glaucoma, Impaired Vision Other HEENT History: dentures, glasses Cardiovascular History: Reports: High Cholesterol, Hypertension, Other (See Below) Other Cardiovascular History: heart cath Respiratory History: Reports: Asthma, Bronchitis, Recurrent, COPD, Sleep Apnea, SOB Other Respiratory History: rhonchi, wheezes Gastrointestinal History: Reports: Cholelithiasis, Diverticulosis, Gastritis, GERD, Hiatal Hernia, Other (See Below) Other Gastrointestinal History: barretts esophagus, inguinal hernia, c diff, focal intestinal metaplasia, duodenitis, diverticulosis Genitourinary History: Reports: Other (See Below) Other Genitourinary History: hematuria MANAGER GENERATION History: Reports: None Musculoskeletal History: Reports: Arthritis, Osteoarthritis Other Musculoskeletal History: R hip pain, R shoulder pain, plantar fascitis Neurological History: Reports: None Psychiatric History: Reports: Anxiety, Bipolar, Depression Endocrine/Metabolic History: Reports: Hypothyroidism, Obesity/BMI 30+ Hematologic History: Reports: Anemia Immunologic History: Reports: None Oncologic (Cancer) History: Reports: None Dermatologic History: Reports: None - Infectious Disease History Infectious Disease History: Reports: None - Past Surgical History Head Surgeries/Procedures: Reports: None HEENT Surgical History: Reports: Cataract Surgery, Eye Surgery Cardiovascular Surgical History: Reports: None Respiratory Surgical History: Reports: None GI Surgical History: Reports: Cholecystectomy, Colonoscopy, EGD, Hernia, Inguinal, Hernia Repair/Other Male Surgical History: Reports: None Endocrine Surgical History: Reports: None Neurological Surgical History: Reports: None Musculoskeletal Surgical History: Reports: Hip Replacement, Shoulder Replacement Other Musculoskeletal Surgeries/Procedures:: R hand surgery, R elbow surgery, R total hip replacement, pigeon chest surgery Oncologic Surgical History: Reports: None Dermatological Surgical History: Reports: None Social & Family History - Family History Family Medical History: Noncontributory Cardiac: Reports: Hypertension Other Cardiac Family History: Mother Respiratory: Reports: COPD, Other (See Below) Other Respiratory Family Hisory: Emphysema. mother GI: Reports: None : Reports: None Neurological: Reports: None Hematologic: Reports: None Immunologic: Reports: None Dermatologic: Reports: None Oncologic: Reports: None - Tobacco Use Tobacco Use Status *Q: Never Tobacco User Second Hand Smoke Exposure: No - Caffeine Use Caffeine Use: Reports: Coffee - Recreational Drug Use Recreational Drug Use: No - Living Situation & Occupation Living situation: Reports: Single Occupation: Employed ED ROS GENERAL - Review of Systems Review Of Systems: See Below Constitutional: Reports: No Symptoms HEENT: Reports: No Symptoms Respiratory: Reports: No Symptoms Cardiovascular: Reports: No Symptoms Endocrine: Reports: No Symptoms GI/Abdominal: Reports: No Symptoms : Reports: Other (Left groin pain) Musculoskeletal: Reports: Other (pain with internal or external rotation of the left hip) ED EXAM, GI/ABD - Physical Exam Exam: See Below Exam Limited By: No Limitations General Appearance: Alert, No Apparent Distress Ears: Normal External Exam Nose: Normal Inspection Head: Atraumatic, Normocephalic Neck: Normal Inspection Respiratory/Chest: No Respiratory Distress, Lungs Clear, Normal Breath Sounds Cardiovascular: Regular Rate, Rhythm, No Edema, No Murmur GI/Abdominal Exam: Soft, Non-Tender, No Organomegaly, No Mass (Male) Exam: Other (no swelling in the groin) Back Exam: Normal Inspection Extremities: Normal Inspection (Pain upon palpation to the left groin. The pain is made worse by internal and external rotation of the left hip. Good sensation and pulses distally.) Course - Vital Signs Last Recorded V/S: Last Vital Signs Temp 97.9 F 05/29/20 15:10 Pulse 80 05/29/20 15:10 Resp 20 05/29/20 15:10 BP 166/74 H 05/29/20 15:10 Pulse Ox 96 05/29/20 15:10 - Orders/Labs/Meds Orders: Active Orders 24 hr Category Date Time Status COMPREHENSIVE METABOLIC PN,CMP [CHEM] Stat Lab 05/29/20 16:22 Received Labs: Laboratory Tests 05/29/20 Range/Units 16:22 WBC 7.73 (4.23-9.07) K/mm3 RBC 4.36 L (4.63-6.08) M/mm3 Hgb 13.3 L D (13.7-17.5) gm/dl Hct 40.8 (40.1-51.0) % MCV 93.6 H (79.0-92.2) fl MCH 30.5 (25.7-32.2) pg MCHC 32.6 (32.2-35.5) g/dl RDW Std Deviation 46.0 H (35.1-43.9) fL Plt Count 261 (163-337) K/mm3 MPV 9.9 (9.4-12.3) fl Neut % (Auto) 70.3 H (34.0-67.9) % Lymph % (Auto) 15.3 L (21.8-53.1) % Dickinson % (Auto) 13.1 H (5.3-12.2) % Eos % (Auto) 1.2 (0.8-7.0) Baso % (Auto) 0.0 L (0.1-1.2) % Neut # (Auto) 5.44 H (1.78-5.38) K/mm3 Lymph # (Auto) 1.18 L (1.32-3.57) K/mm3 Dickinson # (Auto) 1.01 H (0.30-0.82) K/mm3 Eos # (Auto) 0.09 (0.04-0.54) K/mm3 Baso # (Auto) 0.00 L (0.01-0.08) K/mm3 Meds: Medications Discontinued Medications Generic Name Dose Route Start Last Admin Trade Name Freq PRN Reason Stop Dose Admin Hydromorphone HCl 1 mg 05/29/20 16:24 05/29/20 16:35 Dilaudid IM 05/29/20 16:25 1 mg ONETIME ONE Administration - Re-Assessments/Exams Free Text/Narrative Re-Assessment/Exam: 05/29/20 16:54 I ordered an x-ray of his hip and it shows no acute fracture. MRI would be recommended if clinical concern for fracture persists. Moderate degenerative change at the left hip, increased compared with the previous CT scan. Patient has had an interval right hip arthroplasty. No evidence for loosening of the visualized surgical hardware. 05/29/20 16:56 His labs look good. I will discharge him home. Departure - Departure Time of Disposition: 17:00 Disposition: Home, Self-Care 01 Condition: Good Clinical Impression: Left hip pain, Arthritis of left hip - Discharge Information *PRESCRIPTION DRUG MONITORING PROGRAM REVIEWED*: No *COPY OF PRESCRIPTION DRUG MONITORING REPORT IN PATIENT LC: No Prescriptions: Hydrocodone/Acetaminophen [Hydrocodone-Acetamin 5-325 mg] 1 - 2 each PO Q6HR PRN #20 tablet PRN Reason: Pain Referrals: Manjit Triana MD [Primary Care Provider] - Cricket Laws MD [Physician] - 1 Week Forms: ED Department Discharge Additional Instructions: Take tylenol for pain. If that does not help, try hydrocodone. Follow up with Dr Laws within a week. Please return if you are worse. Sepsis Event Note (ED) - Evaluation Sepsis Screening Result: No Definite Risk - Focused Exam Vital Signs: Vital Signs Temp Pulse Resp BP Pulse Ox 05/29/20 15:10 97.9 F 80 20 166/74 H 96 - My Orders Last 24 Hours: My Active Orders 05/29/20 16:22 COMPREHENSIVE METABOLIC PN,CMP [CHEM] Stat - Assessment/Plan Last 24 Hours: My Active Orders 05/29/20 16:22 COMPREHENSIVE METABOLIC PN,CMP [CHEM] Stat
== END 2020-05-29 17:54 | disposition home or self-care (01) ==
LOC: JD.ED 14:59
DX: M16.12 Unilateral primary osteoarthritis, left hip (principal); E78.00 Pure hypercholesterolemia, unspecified; I10 Essential (primary) hypertension; J45.909 Unspecified asthma, uncomplicated; K21.9 Gastro-esophageal reflux disease without esophagitis; M19.90 Unspecified osteoarthritis, unspecified site; F31.9 Bipolar disorder, unspecified; F41.9 Anxiety disorder, unspecified; E03.9 Hypothyroidism, unspecified; E66.9 Obesity, unspecified; Z68.36 Body mass index [BMI] 36.0-36.9, adult; Z88.8 Allergy status to other drugs, medicaments and biological substances
CPT/HCPCS: 36415; 73502; 80053; 85025; 96372; 99283; J1170

== ENCOUNTER 2020-06-14 14:03 | Emergency (ER) | payer MEDICARE, MEDICAID ==
--- NOTE | 2020-06-14 14:58 | EDM.PDOC ---
ED HPI GENERAL MEDICAL PROBLEM - General Chief Complaint: Back Pain or Injury Stated Complaint: LEFT SIDE HIP PAIN Time Seen by Provider: 06/14/20 14:17 Source of Information: Reports: Patient, RN Notes Reviewed History Limitations: Reports: No Limitations - History of Present Illness INITIAL COMMENTS - FREE TEXT/NARRATIVE: Patient is a 59-year-old male presenting to the emergency department with complaints of acute onset of low back pain with radiation into his right hip. He states he awoke this morning with the pain. He has no history of low back pain and has had no known injuries. Denies any recent heavy lifting as he did have a shoulder replacement surgery recently. He took some tramadol earlier this morning around 6 AM but is taken nothing since that time. Pain is worsened by movement or stepping on his right extremity. He borrowed one of his friends walkers to help with ambulation. He denies any numbness or tingling of the extremities. He has no bowel or bladder dysfunction. Treatments COMPUTER NETWORK SPECIALIST: Reports: Other (see below) Other Treatments COMPUTER NETWORK SPECIALIST: tramadol Lower Back Pain Score (Numeric/FACES): 8 Right Hip Pain Score (Numeric/FACES): 8 - Related Data Allergies Allergy/AdvReac Type Severity Reaction Status Date / Time indomethacin Allergy Severe Airway Verified 06/14/20 14:23 Tightness Home Meds: Home Meds Albuterol [Proventil HFA] 1 puff INH QID PRN 09/06/15 [History] Acetaminophen [Tylenol Extra Strength] 1,000 mg PO TID PRN 04/16/16 [History] Levothyroxine [Synthroid] 100 mcg PO ACBREAKFAST 04/16/16 [History] Pantoprazole Sodium [Protonix] 40 mg PO DAILY #30 tablet. 04/17/16 [Rx] Montelukast [Singulair] 10 mg PO BEDTIME 05/14/16 [History] Lactobacillus Acidophilus [Probiotic] 1 each PO DAILY 10/22/16 [History] Multivitamin [Multivitamins] 1 cap PO BEDTIME 10/22/16 [History] buPROPion [Wellbutrin XL] 150 mg PO DAILY 10/22/16 [History] Meloxicam 15 mg PO DAILY 09/17/18 [History] Spironolactone [Aldactone] 25 mg PO DAILY 09/17/18 [History] Tamsulosin HCl 0.4 mg PO DAILY 09/17/18 [History] Tiotropium [Spiriva HandiHaler] 2 puff INH BID 09/17/18 [History] FLUoxetine [PROzac] 80 mg PO DAILY 03/23/20 [History] Rosuvastatin [Crestor] 10 mg PO DAILY 03/23/20 [History] amLODIPine [Norvasc] 2.5 mg PO DAILY 03/23/20 [History] traZODone HCl [Trazodone HCl] 75 mg PO BEDTIME 03/23/20 [History] Albuterol [Proventil Neb Soln] 1 dose NEB Q4H PRN 04/28/20 [History] Aspirin [Halfprin] 81 mg PO DAILY 04/28/20 [History] Budesonide/Formoterol Fumarate [Symbicort 160-4.5 Mcg Inhaler] 2 puff INH BID 04/28/20 [History] Colestipol [Colestipol HCl] 1 gm PO ASDIRECTED PRN 04/28/20 [History] Cranberry 500 mg PO DAILY 04/28/20 [History] Nitroglycerin [Nitrostat] 0.4 mg PO ASDIRECTED PRN 04/28/20 [History] Triamcinolone Acetonide [Triamcinolone Acetonide 0.1% Crm] 1 dose TOP BID PRN 04/28/20 [History] ARIPiprazole [Aripiprazole] 15 mg PO BEDTIME 06/14/20 [History] predniSONE [Prednisone] 20 mg PO ASDIRECTED #15 tablet 06/14/20 [Rx] traMADol [Ultram] 50 mg PO Q6H PRN 06/14/20 [History] Past Medical History HEENT History: Reports: Glaucoma, Impaired Vision Other HEENT History: dentures, glasses Cardiovascular History: Reports: High Cholesterol, Hypertension, Other (See Below) Other Cardiovascular History: heart cath Respiratory History: Reports: Asthma, Bronchitis, Recurrent, COPD, Sleep Apnea, SOB Other Respiratory History: rhonchi, wheezes Gastrointestinal History: Reports: Cholelithiasis, Diverticulosis, Gastritis, GERD, Hiatal Hernia, Other (See Below) Other Gastrointestinal History: barretts esophagus, inguinal hernia, c diff, focal intestinal metaplasia, duodenitis, diverticulosis Genitourinary History: Reports: Other (See Below) Other Genitourinary History: hematuria ASSET MANAGEMENT LEAD History: Reports: None Musculoskeletal History: Reports: Arthritis, Osteoarthritis Other Musculoskeletal History: R hip pain, R shoulder pain, plantar fascitis Neurological History: Reports: None Psychiatric History: Reports: Anxiety, Bipolar, Depression Endocrine/Metabolic History: Reports: Hypothyroidism, Obesity/BMI 30+ Hematologic History: Reports: Anemia Immunologic History: Reports: None Oncologic (Cancer) History: Reports: None Dermatologic History: Reports: None - Infectious Disease History Infectious Disease History: Reports: None - Past Surgical History Head Surgeries/Procedures: Reports: None HEENT Surgical History: Reports: Cataract Surgery, Eye Surgery Cardiovascular Surgical History: Reports: None Respiratory Surgical History: Reports: None GI Surgical History: Reports: Cholecystectomy, Colonoscopy, EGD, Hernia, Inguinal, Hernia Repair/Other Male Surgical History: Reports: None Endocrine Surgical History: Reports: None Neurological Surgical History: Reports: None Musculoskeletal Surgical History: Reports: Hip Replacement, Shoulder Rep lacement, Shoulder Surgery Other Musculoskeletal Surgeries/Procedures:: R hand surgery, R elbow surgery, R total hip replacement, pigeon chest surgery Oncologic Surgical History: Reports: None Dermatological Surgical History: Reports: None Social & Family History - Family History Family Medical History: No Pertinent Family History Cardiac: Reports: Hypertension Other Cardiac Family History: Mother Respiratory: Reports: COPD, Other (See Below) Other Respiratory Family Hisory: Emphysema. mother GI: Reports: None : Reports: None Neurological: Reports: None Hematologic: Reports: None Immunologic: Reports: None Dermatologic: Reports: None Oncologic: Reports: None - Tobacco Use Tobacco Use Status *Q: Former Tobacco User Used Tobacco, but Quit: Yes Month/Year Tobacco Last Used: 2009 - Caffeine Use Caffeine Use: Reports: Coffee - Recreational Drug Use Recreational Drug Use: No - Living Situation & Occupation Living situation: Reports: Single Occupation: Employed ED ROS GENERAL - Review of Systems Review Of Systems: See Below Constitutional: Reports: No Symptoms HEENT: Reports: No Symptoms Respiratory: Reports: No Symptoms Cardiovascular: Reports: No Symptoms Endocrine: Reports: No Symptoms GI/Abdominal: Reports: No Symptoms : Reports: No Symptoms. Denies: Incontinence, Urinary Retention Musculoskeletal: Reports: Back Pain (low back pain) Skin: Reports: No Symptoms Neurological: Reports: No Symptoms. Denies: Numbness, Paresthesia, Tingling Psychiatric: Reports: No Symptoms Hematologic/Lymphatic: Reports: No Symptoms Immunologic: Reports: No Symptoms ED EXAM,LOWER BACK PAIN/INJURY - Physical Exam Exam: See Below Exam Limited By: No Limitations General Appearance: Alert, WD/WN, No Apparent Distress Respiratory/Chest: No Respiratory Distress, Lungs Clear, Normal Breath Sounds, No Accessory Muscle Use, Chest Non-Tender Cardiovascular: Normal Peripheral Pulses, Regular Rate, Rhythm, No Edema, No Gallop, No JVD, No Murmur, No Rub Back Exam: Paraspinal Tenderness (Right lateral to L4-L5), Vertebral Tenderness (L4-L5), Other (Tenderness over the right SI joint) Neurological: Alert, Normal Mood/Affect, Normal Dorsiflexion, CN II-XII Intact, Normal Plantar Flexion, Normal Gait, Normal Reflexes, No Motor/Sensory Deficits, Oriented x 3 Psychiatric: Normal Affect, Normal Mood Skin Exam: Warm, Dry, Intact, Normal Color, No Rash Course - Vital Signs Last Recorded V/S: Last Vital Signs Temp 98.8 F 06/14/20 15:49 Pulse 73 06/14/20 15:49 Resp 16 06/14/20 15:49 BP 140/52 L 06/14/20 15:49 Pulse Ox 100 06/14/20 15:49 - Orders/Labs/Meds Meds: Medications Discontinued Medications Generic Name Dose Route Start Last Admin Trade Name Roderick PRN Reason Stop Dose Admin Prednisone 20 mg 06/14/20 15:35 06/14/20 15:50 Prednisone PO 06/14/20 15:36 20 mg ONETIME ONE Administration - Re-Assessments/Exams Free Text/Narrative Re-Assessment/Exam: 06/14/20 15:36 X-ray of the lumbar spine showed no acute findings. Minor spondylitic changes observed at L3-L4 and L4-L5. We will start patient on course of prednisone for inflammation of his SI joint. May continue to take his Tylenol arthritis as well as tramadol as needed for pain. Discharge instructions as document. Departure - Departure Time of Disposition: 15:37 Disposition: Home, Self-Care 01 Condition: Good Clinical Impression: Low back pain Qualifiers: Chronicity: acute Back pain laterality: midline Sciatica presence: with sciatica Sciatica laterality: sciatica of right side Qualified Code(s): M54.41 - Lumbago with sciatica, right side - Discharge Information *PRESCRIPTION DRUG MONITORING PROGRAM REVIEWED*: No *COPY OF PRESCRIPTION DRUG MONITORING REPORT IN PATIENT LC: No Prescriptions: predniSONE [Prednisone] 20 mg PO ASDIRECTED #15 tablet Instructions: Acute Back Pain, Adult Referrals: Manjit Triana MD [Primary Care Provider] - Forms: ED Department Discharge Additional Instructions: You were seen in the emergency department today for low back pain with radiation to your right hip. X-rays were completed and showed no acute findings. He was started on a course of prednisone. Take this medication as prescribed. First dose was given in ER. You may continue taking your Tylenol arthritis, as well as your tramadol as needed for pain. Applying heat to the area of discomfort is often beneficial as well. If you continue to have pain after few days, I would recommend follow-up with your primary care provider. Return to the ER as needed. Sepsis Event Note (ED) - Evaluation Sepsis Screening Result: No Definite Risk
--- NOTE | 2020-06-14 15:15 | CR ---
PROCEDURE INFORMATION: Exam: XR Lumbosacral Spine, 2 or 3 Views Exam date and time: 06/14/2020 2:59 PM Age: 59 years old Clinical indication: Low back pain; Patient HX: Lbp/rt si pain TECHNIQUE: Imaging protocol: XR of the lumbosacral spine, 2 or 3 views. COMPARISON: DX Hip Min 2V or 3V w Pelvis Lt 05/29/2020 3:47 PM FINDINGS: Bones/joints: Normal. No acute fracture. Normal alignment. No significant disc space pathology. Soft tissues: Unremarkable. IMPRESSION: No acute findings. Minor spondylitic changes observed at L3-L4 and L4-L5. Thank you for allowing us to participate in the care of your patient. Dictated and Authenticated by: Neftali Barker MD 06/14/2020 4:10 PM Central Time ([place] & [place]) [facility]
[2020-06-14] MEDS ORDERED: predniSONE 20 MG Tab PO ONE (15:35)
[2020-06-14 15:50] VITALS: BP 140/52; PULSE 73
== END 2020-06-14 16:00 | disposition home or self-care (01) ==
LOC: JD.ED 14:03
DX: M54.41 Lumbago with sciatica, right side (principal); I10 Essential (primary) hypertension; E78.00 Pure hypercholesterolemia, unspecified; J44.9 Chronic obstructive pulmonary disease, unspecified; K21.9 Gastro-esophageal reflux disease without esophagitis; F41.9 Anxiety disorder, unspecified; F31.9 Bipolar disorder, unspecified; E03.9 Hypothyroidism, unspecified; E66.9 Obesity, unspecified; Z88.8 Allergy status to other drugs, medicaments and biological substances; Z90.49 Acquired absence of other specified parts of digestive tract; Z87.891 Personal history of nicotine dependence; Z79.82 Long term (current) use of aspirin; Z79.899 Other long term (current) drug therapy; Z68.37 Body mass index [BMI] 37.0-37.9, adult
CPT/HCPCS: 72100; 99283; J7512

== ENCOUNTER 2020-07-28 09:03 | Emergency (ER) | payer MEDICARE, MEDICAID ==
[2020-07-28 09:14] VITALS: BP 143/71; PULSE 87
[2020-07-28] MEDS ORDERED: Lidocaine 1% 10 ML MDV INJECT ONE (09:18)
--- NOTE | 2020-07-28 09:23 | EDM.PDOC ---
ED HPI GENERAL MEDICAL PROBLEM - General Chief Complaint: Upper Extremity Injury/Pain Stated Complaint: L INDEX FINGER SKIN COMPLAINT Time Seen by Provider: 07/28/20 09:10 - History of Present Illness INITIAL COMMENTS - FREE TEXT/NARRATIVE: 59-year-old male presents to the emergency room with a infection involving his left index finger. Patient says this is been going on for the last 4 days or so. He has had increased swelling over the nail matrix. He has not had any fevers or chills he said no red streaking up his finger or hand. A friend has tried to drain it yesterday without any success. He has not had any other treatment for this. Patient has hip surgery scheduled for this coming Friday, 2 days from now. - Related Data Allergies Allergy/AdvReac Type Severity Reaction Status Date / Time indomethacin Allergy Severe Airway Verified 07/28/20 09:14 Tightness Home Meds: Home Meds Albuterol [Proventil HFA] 1 puff INH QID PRN 09/06/15 [History] Acetaminophen [Tylenol Extra Strength] 1,000 mg PO TID PRN 04/16/16 [History] Levothyroxine [Synthroid] 100 mcg PO ACBREAKFAST 04/16/16 [History] Pantoprazole Sodium [Protonix] 40 mg PO DAILY #30 tablet. 04/17/16 [Rx] Montelukast [Singulair] 10 mg PO BEDTIME 05/14/16 [History] Lactobacillus Acidophilus [Probiotic] 1 each PO DAILY 10/22/16 [History] Multivitamin [Multivitamins] 1 cap PO BEDTIME 10/22/16 [History] buPROPion [Wellbutrin XL] 150 mg PO DAILY 10/22/16 [History] Spironolactone [Aldactone] 25 mg PO DAILY 09/17/18 [History] Tamsulosin HCl 0.4 mg PO DAILY 09/17/18 [History] Tiotropium [Spiriva HandiHaler] 2 puff INH BID 09/17/18 [History] FLUoxetine [PROzac] 80 mg PO DAILY 03/23/20 [History] Rosuvastatin [Crestor] 10 mg PO DAILY 03/23/20 [History] amLODIPine [Norvasc] 2.5 mg PO DAILY 03/23/20 [History] traZODone HCl [Trazodone HCl] 75 mg PO BEDTIME 03/23/20 [History] Albuterol [Proventil Neb Soln] 1 dose NEB Q4H PRN 04/28/20 [History] Aspirin [Halfprin] 81 mg PO DAILY 04/28/20 [History] Budesonide/Formoterol Fumarate [Symbicort 160-4.5 Mcg Inhaler] 2 puff INH BID 04/28/20 [History] Colestipol [Colestipol HCl] 1 gm PO ASDIRECTED PRN 04/28/20 [History] Cranberry 500 mg PO DAILY 04/28/20 [History] Nitroglycerin [Nitrostat] 0.4 mg PO ASDIRECTED PRN 04/28/20 [History] Triamcinolone Acetonide [Triamcinolone Acetonide 0.1% Crm] 1 dose TOP BID PRN 04/28/20 [History] ARIPiprazole [Aripiprazole] 15 mg PO BEDTIME 06/14/20 [History] predniSONE [Prednisone] 20 mg PO ASDIRECTED #15 tablet 06/14/20 [Rx] cephALEXin [Keflex] 500 mg PO QID #40 cap 07/28/20 [Rx] Past Medical History HEENT History: Reports: Glaucoma, Impaired Vision Other HEENT History: dentures, glasses Cardiovascular History: Reports: High Cholesterol, Hypertension, Other (See Below) Other Cardiovascular History: heart cath Respiratory History: Reports: Asthma, Bronchitis, Recurrent, COPD, Sleep Apnea, SOB Other Respiratory History: rhonchi, wheezes Gastrointestinal History: Reports: Cholelithiasis, Diverticulosis, Gastritis, GERD, Hiatal Hernia, Other (See Below) Other Gastrointestinal History: barretts esophagus, inguinal hernia, c diff, focal intestinal metaplasia, duodenitis, diverticulosis Genitourinary History: Reports: Other (See Below) Other Genitourinary History: hematuria [employer]IN[employer] History: Reports: None Musculoskeletal History: Reports: Arthritis, Osteoarthritis Other Musculoskeletal History: R hip pain, R shoulder pain, plantar fascitis Neurological History: Reports: None Psychiatric History: Reports: Anxiety, Bipolar, Depression Endocrine/Metabolic History: Reports: Hypothyroidism, Obesity/BMI 30+ Hematologic History: Reports: Anemia Immunologic History: Reports: None Oncologic (Cancer) History: Reports: None Dermatologic History: Reports: None - Infectious Disease History Infectious Disease History: Reports: None - Past Surgical History Head Surgeries/Procedures: Reports: None HEENT Surgical History: Reports: Cataract Surgery, Eye Surgery Cardiovascular Surgical History: Reports: None Respiratory Surgical History: Reports: None GI Surgical History: Reports: Cholecystectomy, Colonoscopy, EGD, Hernia, Inguinal, Hernia Repair/Other Male Surgical History: Reports: None Endocrine Surgical History: Reports: None Neurological Surgical History: Reports: None Musculoskeletal Surgical History: Reports: Hip Replacement, Shoulder Replacement, Shoulder Surgery Other Musculoskeletal Surgeries/Procedures:: R hand surgery, R elbow surgery, R total hip replacement, pigeon chest surgery Oncologic Surgical History: Reports: None Dermatological Surgical History: Reports: None Social & Family History - Family History Family Medical History: No Pertinent Family History Cardiac: Reports: Hypertension Other Cardiac Family History: Mother Respiratory: Reports: COPD, Other (See Below) Other Respiratory Family Hisory: Emphysema. mother GI: Reports: None : Reports: None Neurological: Reports: None Hematologic: Reports: None Immunologic: Reports: None Dermatologic: Reports: None Oncologic: Reports: None - Tobacco Use Tobacco Use Status *Q: Never Tobacco User - Caffeine Use Caffeine Use: Reports: Coffee - Recreational Drug Use Recreational Drug Use: No - Living Situation & Occupation Living situation: Reports: Single Occupation: Employed Review of Systems - Review of Systems Review Of Systems: See Below Constitutional: Reports: No Symptoms Respiratory: Reports: No Symptoms Cardiovascular: Reports: No Symptoms GI/Abdominal: Reports: No Symptoms ED EXAM, GENERAL - Physical Exam Exam: See Below Exam Limited By: No Limitations General Appearance: Alert, No Apparent Distress Respiratory/Chest: No Respiratory Distress, Lungs Clear, Normal Breath Sounds Cardiovascular: Regular Rate, Rhythm, No Edema, No Murmur Extremities: Other (Emanation of his left hand shows a left index finger with some distal inflammation and swelling with some fluctuant area under the radial aspect of the digit. This is right over the nail plate. Does not appear to have any drainage coming from the nail plate itself. I did free up the nail plate and did not cause any drainage.) ED TRAUMA EXTREMITY PROCEDURES - I&D Site: Left index finger dorsal radial aspect over the nail matrix Skin Prep: Isopropyl Alcohol (Alcohol), Saline Local Anesthesia: Lidocaine: 1% Plain Local Anesthetic Volume: 3cc Area Incised With: Other (An 18 blade the area was opened making a 4 mm incision some bloody exudative material was drained culture obtained) Drainage: Purulent, Bloody, Small Amount Probed to Break Up Loculations: Yes Complications: No Progress/Comments: Patient had a small abscess identified over the radial aspect of his nail plate on his left index finger. After successful anesthesia using a digital block with 2-1/2 cc of 1% lidocaine without epinephrine the area was inspected nail margins freed no exudate drained at that point the fluctuant area was incised with a 18-gauge needle and opened up to 4 mm small amount of bloody exudative drainage was expressed out of the wound. The patient is soaking his infected finger, he will receive a gram of Ancef. The patient has had a shoulder replacement in the past. Course - Vital Signs Last Recorded V/S: Last Vital Signs Temp 36.6 C 07/28/20 09:05 Pulse 87 07/28/20 09:05 Resp 16 07/28/20 09:05 BP 143/71 H 07/28/20 09:05 Pulse Ox 97 07/28/20 09:05 - Orders/Labs/Meds Meds: Medications Discontinued Medications Generic Name Dose Route Start Last Admin Trade Name Roderick PRN Reason Stop Dose Admin Cefazolin Sodium 1 gm 07/28/20 09:34 07/28/20 09:44 Ancef IM 07/28/20 09:35 1 gm ONETIME ONE Administration Lidocaine HCl 10 ml 07/28/20 09:18 07/28/20 09:22 Xylocaine 1% INJECT 07/28/20 09:19 10 ml ONETIME ONE Administration - Re-Assessments/Exams Free Text/Narrative Re-Assessment/Exam: 07/28/20 10:16 The patient soaked his finger and received a gram of IM Rocephin I discussed his discharge instructions with him thoroughly. We will discharge now. Departure - Departure Time of Disposition: 10:17 Disposition: Home, Self-Care 01 Clinical Impression: Paronychia of left index finger - Discharge Information Referrals: Manjit Triana MD [Primary Care Provider] - Forms: ED Department Discharge Additional Instructions: Return to the emergency room with any questions problems or worsening symptoms. Every couple of hours while you are awake and when she is soaking this finger in warm Epson salt solution for 15 to 20 minutes. Gently pull the incision open and press on the tissue around it before soaking. Call your surgeon and update them about this finger infection. You will be given an antibiotics, Keflex take 1 every 6 hours. This has been sent electronically to [facility] [employer] [facility] Sepsis Event Note (ED) - Evaluation Sepsis Screening Result: No Definite Risk - Focused Exam Vital Signs: Vital Signs Temp Pulse Resp BP Pulse Ox 07/28/20 09:05 36.6 C 87 16 143/71 H 97
[2020-07-28] MEDS ORDERED: ceFAZolin 1 GM Vial IM ONE (09:34)
== END 2020-07-28 10:29 | disposition home or self-care (01) ==
LOC: JD.ED 09:03
DX: L03.012 Cellulitis of left finger (principal); E78.00 Pure hypercholesterolemia, unspecified; I10 Essential (primary) hypertension; J44.9 Chronic obstructive pulmonary disease, unspecified; M19.90 Unspecified osteoarthritis, unspecified site; F31.9 Bipolar disorder, unspecified; F41.9 Anxiety disorder, unspecified; E03.9 Hypothyroidism, unspecified; K21.9 Gastro-esophageal reflux disease without esophagitis; E66.9 Obesity, unspecified; Z68.36 Body mass index [BMI] 36.0-36.9, adult; Z88.8 Allergy status to other drugs, medicaments and biological substances; Z79.899 Other long term (current) drug therapy; Z79.82 Long term (current) use of aspirin
CPT/HCPCS: 10060; 96372; 99283; J0690; J2001

== ENCOUNTER 2020-09-02 08:09 | Emergency (ER) | payer MEDICARE, MEDICAID ==
--- NOTE | 2020-09-02 08:58 | EDM.PDOC ---
ED HPI GENERAL MEDICAL PROBLEM - General Chief Complaint: Lower Extremity Injury/Pain Stated Complaint: HIP SURGERY MON NOW SWELLING OF ENTIRE LEG Time Seen by Provider: 09/02/20 08:29 Source of Information: Reports: Patient History Limitations: Reports: No Limitations - History of Present Illness INITIAL COMMENTS - FREE TEXT/NARRATIVE: The patient presents with left leg edema. He had a total hip replacement 5 days ago at [facility] in [place] by Dr Laws. He was in the hospital for 3 days. He started noticing swelling in his leg yesterday. He has moderate swelling to his left leg. He has no more pain then normal with his surgery. He has no chest pain or shortness of breath. He has no fever, chills, cough, abdominal pain, nausea or vomiting. Onset: Gradual Duration: Day(s): (yesterday) Location: Reports: Lower Extremity, Left Severity: Moderate Improves with: Reports: None Worsens with: Reports: None Associated Symptoms: Reports: No Other Symptoms Left Hip Pain Score (Numeric/FACES): 7 - Related Data Allergies Allergy/AdvReac Type Severity Reaction Status Date / Time indomethacin Allergy Severe Airway Verified 09/02/20 08:40 Tightness Home Meds: Home Meds Albuterol [Proventil HFA] 1 puff INH QID PRN 09/06/15 [History] Acetaminophen [Tylenol Extra Strength] 1,000 mg PO TID PRN 04/16/16 [History] Levothyroxine [Synthroid] 100 mcg PO ACBREAKFAST 04/16/16 [History] Pantoprazole Sodium [Protonix] 40 mg PO DAILY #30 tablet. 04/17/16 [Rx] Montelukast [Singulair] 10 mg PO BEDTIME 05/14/16 [History] Lactobacillus Acidophilus [Probiotic] 1 each PO DAILY 10/22/16 [History] Multivitamin [Multivitamins] 1 cap PO BEDTIME 10/22/16 [History] buPROPion [Wellbutrin XL] 150 mg PO DAILY 10/22/16 [History] Spironolactone [Aldactone] 25 mg PO DAILY 09/17/18 [History] Tamsulosin HCl 0.4 mg PO DAILY 09/17/18 [History] Tiotropium [Spiriva HandiHaler] 2 puff INH BID 09/17/18 [History] FLUoxetine [PROzac] 80 mg PO DAILY 03/23/20 [History] Rosuvastatin [Crestor] 10 mg PO DAILY 03/23/20 [History] amLODIPine [Norvasc] 2.5 mg PO DAILY 03/23/20 [History] traZODone HCl [Trazodone HCl] 75 mg PO BEDTIME 03/23/20 [History] Albuterol [Proventil Neb Soln] 1 dose NEB Q4H PRN 04/28/20 [History] Aspirin [Halfprin] 81 mg PO DAILY 04/28/20 [History] Budesonide/Formoterol Fumarate [Symbicort 160-4.5 Mcg Inhaler] 2 puff INH BID 04/28/20 [History] Colestipol [Colestipol HCl] 1 gm PO ASDIRECTED PRN 04/28/20 [History] Cranberry 500 mg PO DAILY 04/28/20 [History] Nitroglycerin [Nitrostat] 0.4 mg PO ASDIRECTED PRN 04/28/20 [History] Triamcinolone Acetonide [Triamcinolone Acetonide 0.1% Crm] 1 dose TOP BID PRN 04/28/20 [History] ARIPiprazole [Aripiprazole] 15 mg PO BEDTIME 06/14/20 [History] predniSONE [Prednisone] 20 mg PO ASDIRECTED #15 tablet 06/14/20 [Rx] cephALEXin [Keflex] 500 mg PO QID #40 cap 07/28/20 [Rx] Past Medical History HEENT History: Reports: Glaucoma, Impaired Vision Other HEENT History: dentures, glasses Cardiovascular History: Reports: High Cholesterol, Hypertension, Other (See Below) Other Cardiovascular History: heart cath Respiratory History: Reports: Asthma, Bronchitis, Recurrent, COPD, Sleep Apnea, SOB Other Respiratory History: rhonchi, wheezes Gastrointestinal History: Reports: Cholelithiasis, Diverticulosis, Gastritis, GERD, Hiatal Hernia, Other (See Below) Other Gastrointestinal History: barretts esophagus, inguinal hernia, c diff, focal intestinal metaplasia, duodenitis, diverticulosis Genitourinary History: Reports: Other (See Below) Other Genitourinary History: hematuria [employer] History: Reports: None Musculoskeletal History: Reports: Arthritis, Osteoarthritis Other Musculoskeletal History: R hip pain, R shoulder pain, plantar fascitis Neurological History: Reports: None Psychiatric History: Reports: Anxiety, Bipolar, Depression Endocrine/Metabolic History: Reports: Hypothyroidism, Obesity/BMI 30+ Hematologic History: Reports: Anemia Immunologic History: Reports: None Oncologic (Cancer) History: Reports: None Dermatologic History: Reports: None - Infectious Disease History Infectious Disease History: Reports: None - Past Surgical History Head Surgeries/Procedures: Reports: None HEENT Surgical History: Reports: Cataract Surgery, Eye Surgery Cardiovascular Surgical History: Reports: None Respiratory Surgical History: Reports: None GI Surgical History: Reports: Cholecystectomy, Colonoscopy, EGD, Hernia, Inguinal, Hernia Repair/Other Male Surgical History: Reports: None Endocrine Surgical History: Reports: None Neurological Surgical History: Reports: None Musculoskeletal Surgical History: Reports: Hip Replacement, Shoulder Replacement, Shoulder Surgery Other Musculoskeletal Surgeries/Procedures:: R hand surgery, R elbow surgery, R total hip replacement, pigeon chest surgery Oncologic Surgical History: Reports: None Dermatological Surgical History: Reports: None Social & Family History - Family History Family Medical History: No Pertinent Family History Cardiac: Reports: Hypertension Other Cardiac Family History: Mother Respiratory: Reports: COPD, Other (See Below) Other Respiratory Family Hisory: Emphysema. mother GI: Reports: None : Reports: None Neurological: Reports: None Hematologic: Reports: None Immunologic: Reports: None Dermatologic: Reports: None Oncologic: Reports: None - Tobacco Use Tobacco Use Status *Q: Never Tobacco User - Caffeine Use Caffeine Use: Reports: Coffee - Recreational Drug Use Recreational Drug Use: No - Living Situation & Occupation Living situation: Reports: Single Occupation: Employed Review of Systems - Review of Systems Review Of Systems: See Below Constitutional: Reports: No Symptoms Eyes: Reports: No Symptoms Ears: Reports: No Symptoms Nose: Reports: No Symptoms Mouth/Throat: Reports: No Symptoms Respiratory: Reports: No Symptoms Cardiovascular: Reports: No Symptoms GI/Abdominal: Reports: No Symptoms Genitourinary: Reports: No Symptoms Musculoskeletal: Reports: Other (left leg swelling) ED EXAM, GENERAL - Physical Exam Exam: See Below Exam Limited By: No Limitations General Appearance: Alert, No Apparent Distress Ears: Normal External Exam Nose: Normal Inspection Head: Atraumatic, Normocephalic Neck: Normal Inspection Respiratory/Chest: No Respiratory Distress, Lungs Clear, Normal Breath Sounds Cardiovascular: Regular Rate, Rhythm, No Edema, No Murmur GI/Abdominal: Soft, Non-Tender, No Organomegaly, No Mass Extremities: Other (Moderate edema to the whole leg. Good sensation and pulses distally.) Course - Vital Signs Last Recorded V/S: Last Vital Signs Temp 97.1 F 09/02/20 08:39 Pulse 73 09/02/20 08:39 Resp 14 09/02/20 08:39 BP 152/65 H 09/02/20 08:39 Pulse Ox 97 09/02/20 08:39 - Re-Assessments/Exams Free Text/Narrative Re-Assessment/Exam: 09/02/20 08:58 I ordered an US of his left leg. 09/02/20 10:47 The US shows no findings of deep venous thrombosis within the left lower extremity or within the right common femoral vein. Small popliteal cyst noted measuring up to 3.7cm. Minimal subcutaneous edema. Departure - Departure Time of Disposition: 10:50 Disposition: Home, Self-Care 01 Condition: Good Clinical Impression: Edema of left lower leg - Discharge Information *PRESCRIPTION DRUG MONITORING PROGRAM REVIEWED*: Not Applicable *COPY OF PRESCRIPTION DRUG MONITORING REPORT IN PATIENT LC: Not Applicable Referrals: Manjit Triana MD [Primary Care Provider] - Cricket Laws MD [Physician] - 1 Week Forms: ED Department Discharge Additional Instructions: Take your medication as prescribed. Keep active like Dr Laws advised. When you are sitting or laying try to elevate your left leg above your heart. Please return if you are worse. Follow up with Dr Laws as scheduled. Sepsis Event Note (ED) - Evaluation Sepsis Screening Result: No Definite Risk - Focused Exam Vital Signs: Vital Signs Temp Pulse Resp BP Pulse Ox 09/02/20 08:39 97.1 F 73 14 152/65 H 97
--- NOTE | 2020-09-02 10:27 | US ---
Left lower extremity deep venous ultrasound: Multiple real-time images and Doppler evaluation was obtained of the left common femoral, proximal greater saphenous, superficial femoral, popliteal, posterior tibial and peroneal veins. Right common femoral vein was also evaluated. Comparison: No prior venous imaging is available. Findings: Deep veins show normal phasic flow, augmentation and compression. Small hypoechoic area is seen within the left posterior popliteal space measuring up to 3.7 cm which most likely represents a popliteal cyst. There is a minimal amount of subcutaneous edema within this area. Impression: 1. No findings of deep venous thrombosis within the left lower extremity or within the right common femoral vein. 2. Small popliteal cyst noted measuring up to 3.7 cm. 3. Minimal subcutaneous edema. Diagnostic code #3
[2020-09-02 12:49] VITALS: BP 159/75; PULSE 74
== END 2020-09-02 11:45 | disposition home or self-care (01) ==
LOC: JD.ED 08:09
DX: R60.0 Localized edema (principal); E78.00 Pure hypercholesterolemia, unspecified; I10 Essential (primary) hypertension; J44.9 Chronic obstructive pulmonary disease, unspecified; K21.9 Gastro-esophageal reflux disease without esophagitis; M19.90 Unspecified osteoarthritis, unspecified site; E03.9 Hypothyroidism, unspecified; E66.9 Obesity, unspecified; Z68.35 Body mass index [BMI] 35.0-35.9, adult; Z79.82 Long term (current) use of aspirin; Z88.8 Allergy status to other drugs, medicaments and biological substances; Z79.899 Other long term (current) drug therapy
CPT/HCPCS: 93971-26-LT; 93971-LT; 99283; 99284-25

== ENCOUNTER 2021-03-06 17:14 | Emergency (ER) | payer MEDICARE, MEDICAID ==
[2021-03-06 17:28] VITALS: BP 155/65; PULSE 67
[2021-03-06] MEDS: Sodium Chloride 0.9% 10 ML Syringe FLUSH PRN ×2 (17:55→19:49)
--- NOTE | 2021-03-06 19:18 | EDM.PDOC ---
ED HPI GENERAL MEDICAL PROBLEM - General Chief Complaint: Respiratory Problem Stated Complaint: HEADACHE,DIFFICULTY BREATHING,DIARRHEA Time Seen by Provider: 03/06/21 17:20 Source of Information: Reports: Patient, RN Notes Reviewed History Limitations: Reports: No Limitations - History of Present Illness INITIAL COMMENTS - FREE TEXT/NARRATIVE: Patient is a 60-year-old male presenting to the emergency department with complaints of cough, shortness of breath, diarrhea, nausea, body aches, and sensation that his ear is plugged when he lays down because of diminished hearing. Symptoms began on Friday. He was evaluated the [facility] on Friday and diagnosed with pneumonia. He was started on doxycycline for treatment of this. Covid testing was completed that time and found to be negative. Patient feels that his antibiotics are not working for his pneumonia. States symptoms are not necessarily worsening but he does not feel like they are improving very much. He reports that today he had a bowel movement and that it caused burning in his rectum. He denied bloody stool. He has had no documented fever. Denies chest pain or abdominal pain. He did not receive the Covid vaccination. Middle Chest Pain Score (Numeric/FACES): 5 - Related Data Allergies Allergy/AdvReac Type Severity Reaction Status Date / Time indomethacin Allergy Severe Airway Verified 03/06/21 17:28 Tightness Home Meds: Home Meds Albuterol [Proventil HFA] 1 puff INH QID PRN 09/06/15 [History] Acetaminophen [Tylenol Extra Strength] 1,000 mg PO TID PRN 04/16/16 [History] Levothyroxine [Synthroid] 100 mcg PO ACBREAKFAST 04/16/16 [History] Pantoprazole Sodium [Protonix] 40 mg PO DAILY #30 tablet. 04/17/16 [Rx] Montelukast [Singulair] 10 mg PO BEDTIME 05/14/16 [History] Lactobacillus Acidophilus [Probiotic] 1 each PO DAILY 10/22/16 [History] Multivitamin [Multivitamins] 1 cap PO BEDTIME 10/22/16 [History] buPROPion [Wellbutrin XL] 150 mg PO DAILY 10/22/16 [History] Spironolactone [Aldactone] 25 mg PO DAILY 09/17/18 [History] Tamsulosin HCl 0.4 mg PO DAILY 09/17/18 [History] Tiotropium [Spiriva HandiHaler] 2 puff INH BID 09/17/18 [History] FLUoxetine [PROzac] 80 mg PO DAILY 03/23/20 [History] Rosuvastatin [Crestor] 10 mg PO DAILY 03/23/20 [History] amLODIPine [Norvasc] 2.5 mg PO DAILY 03/23/20 [History] traZODone HCl [Trazodone HCl] 75 mg PO BEDTIME 03/23/20 [History] Albuterol [Proventil Neb Soln] 1 dose NEB Q4H PRN 04/28/20 [History] Aspirin [Halfprin] 81 mg PO DAILY 04/28/20 [History] Budesonide/Formoterol Fumarate [Symbicort 160-4.5 Mcg Inhaler] 2 puff INH BID 04/28/20 [History] Colestipol [Colestipol HCl] 1 gm PO ASDIRECTED PRN 04/28/20 [History] Cranberry 500 mg PO DAILY 04/28/20 [History] Nitroglycerin [Nitrostat] 0.4 mg PO ASDIRECTED PRN 04/28/20 [History] Triamcinolone Acetonide [Triamcinolone Acetonide 0.1% Crm] 1 dose TOP BID PRN 04/28/20 [History] ARIPiprazole [Aripiprazole] 15 mg PO BEDTIME 06/14/20 [History] predniSONE [Prednisone] 20 mg PO ASDIRECTED #15 tablet 06/14/20 [Rx] cephALEXin [Keflex] 500 mg PO QID #40 cap 07/28/20 [Rx] Past Medical History HEENT History: Reports: Glaucoma, Impaired Vision Other HEENT History: dentures, glasses Cardiovascular History: Reports: High Cholesterol, Hypertension, Other (See Below) Other Cardiovascular History: heart cath Respiratory History: Reports: Asthma, Bronchitis, Recurrent, COPD, Sleep Apnea, SOB Other Respiratory History: rhonchi, wheezes Gastrointestinal History: Reports: Cholelithiasis, Diverticulosis, Gastritis, GERD, Hiatal Hernia, Other (See Below) Other Gastrointestinal History: barretts esophagus, inguinal hernia, c diff, focal intestinal metaplasia, duodenitis, diverticulosis Genitourinary History: Reports: Other (See Below) Other Genitourinary History: hematuria [employer]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: 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: 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 Musculoskeletal History: Reports: Arthritis, Osteoarthritis Other Musculoskeletal History: R hip pain, R shoulder pain, plantar fascitis Neurological History: Reports: None Psychiatric History: Reports: Anxiety, Bipolar, Depression Endocrine/Metabolic History: Reports: Hypothyroidism, Obesity/BMI 30+ Hematologic History: Reports: Anemia Immunologic History: Reports: None Oncologic (Cancer) History: Reports: None Dermatologic History: Reports: None - Infectious Disease History Infectious Disease History: Reports: None - Past Surgical History Head Surgeries/Procedures: Reports: None HEENT Surgical History: Reports: Cataract Surgery, Eye Surgery Cardiovascular Surgical History: Reports: None Respiratory Surgical History: Reports: None GI Surgical History: Reports: Cholecystectomy, Colonoscopy, EGD, Hernia, Inguinal, Hernia Repair/Other Male Surgical History: Reports: None Endocrine Surgical History: Reports: None Neurological Surgical History: Reports: None Musculoskeletal Surgical History: Reports: Hip Replacement, Shoulder Replacement, Shoulder Surgery Other Musculoskeletal Surgeries/Procedures:: R hand surgery, R elbow surgery, R total hip replacement, pigeon chest surgery Oncologic Surgical History: Reports: None Dermatological Surgical History: Reports: None Social & Family History - Family History Family Medical History: No Pertinent Family History Cardiac: Reports: Hypertension Other Cardiac Family History: Mother Respiratory: Reports: COPD, Other (See Below) Other Respiratory Family Hisory: Emphysema. mother GI: Reports: None : Reports: None Neurological: Reports: None Hematologic: Reports: None Immunologic: Reports: None Dermatologic: Reports: None Oncologic: Reports: None - Tobacco Use Tobacco Use Status *Q: Former Tobacco User Used Tobacco, but Quit: Yes Month/Year Tobacco Last Used: 11 years ago - Caffeine Use Caffeine Use: Reports: Coffee - Recreational Drug Use Recreational Drug Use: No - Living Situation & Occupation Living situation: Reports: Single Occupation: Employed ED ROS GENERAL - Review of Systems Review Of Systems: Comprehensive ROS is negative, except as noted in HPI. ED EXAM, GENERAL - Physical Exam Exam: See Below Exam Limited By: No Limitations General Appearance: Alert, WD/WN, No Apparent Distress Eye Exam: Bilateral Eye: PERRL Ears: Normal External Exam, Normal Canal, Hearing Grossly Normal, Normal TMs Respiratory/Chest: No Respiratory Distress, Lungs Clear, Normal Breath Sounds, No Accessory Muscle Use, Chest Non-Tender Cardiovascular: Normal Peripheral Pulses, Regular Rate, Rhythm, No Edema, No Gallop, No JVD, No Murmur, No Rub GI/Abdominal: Normal Bowel Sounds, Soft, Non-Tender, No Organomegaly, No Distention, No Abnormal Bruit, No Mass Neurological: Alert, Oriented, CN II-XII Intact, Normal Cognition, Normal Gait, Normal Reflexes, No Motor/Sensory Deficits Psychiatric: Normal Affect, Normal Mood Skin Exam: Warm, Dry, Intact, Normal Color, No Rash Course - Vital Signs Last Recorded V/S: Last Vital Signs Temp 97.4 F 03/06/21 17:24 Pulse 67 03/06/21 17:24 Resp 20 03/06/21 17:24 BP 155/65 H 03/06/21 17:24 Pulse Ox 96 03/06/21 17:24 - Orders/Labs/Meds Orders: Active Orders 24 hr Category Date Time Status Peripheral IV Insertion Adult [OM.PC] Stat Oth 03/06/21 17:31 Ordered Labs: Laboratory Tests 03/06/21 03/06/21 03/06/21 Range/Units 17:44 17:44 17:44 WBC 9.30 H (4.23-9.07) K/mm3 RBC 4.02 L (4.63-6.08) M/mm3 Hgb 12.4 L (13.7-17.5) gm/dl Hct 36.6 L (40.1-51.0) % MCV 91.0 (79.0-92.2) fl MCH 30.8 (25.7-32.2) pg MCHC 33.9 (32.2-35.5) g/dl RDW Std Deviation 42.7 (35.1-43.9) fL Plt Count 274 (163-337) K/mm3 MPV 9.4 (9.4-12.3) fl Neut % (Auto) 75.8 H (34.0-67.9) % Lymph % (Auto) 12.5 L (21.8-53.1) % [place] % (Auto) 9.9 (5.3-12.2) % Eos % (Auto) 1.0 (0.8-7.0) Baso % (Auto) 0.2 (0.1-1.2) % Neut # (Auto) 7.05 H (1.78-5.38) K/mm3 Lymph # (Auto) 1.16 L (1.32-3.57) K/mm3 [place] # (Auto) 0.92 H (0.30-0.82) K/mm3 Eos # (Auto) 0.09 (0.04-0.54) K/mm3 Baso # (Auto) 0.02 (0.01-0.08) K/mm3 D-Dimer, Quantitative 0.82 H (0.19-0.50) mg/L Sodium 139 (136-145) mEq/L Potassium 3.4 L (3.5-5.1) mEq/L Chloride 102 (98-107) mEq/L Carbon Dioxide 28 (21-32) mEq/L Anion Gap 12.4 (5-15) BUN 11 (7-18) mg/dL Creatinine 1.3 (0.7-1.3) mg/dL Est Cr Clr Drug Dosing 65.16 mL/min Estimated GFR (MDRD) 57 (>60) mL/min BUN/Creatinine Ratio 8.5 L (14-18) Glucose 130 H (70-99) mg/dL Calcium 9.3 (8.5-10.1) mg/dL Total Bilirubin 0.4 (0.2-1.0) mg/dL AST 16 (15-37) U/L ALT 25 (16-63) U/L Alkaline Phosphatase 115 (46-116) U/L Troponin I < 0.017 (0.00-0.056) ng/mL C-Reactive Protein 23.0 H* (<1.0) mg/dL Total Protein 7.8 (6.4-8.2) g/dl Albumin 3.2 L (3.4-5.0) g/dl Globulin 4.6 gm/dL Albumin/Globulin Ratio 0.7 L (1-2) SARS-CoV-2 RNA (HERI) (NEGATIVE) 03/06/21 Range/Units 17:53 WBC (4.23-9.07) K/mm3 RBC (4.63-6.08) M/mm3 Hgb (13.7-17.5) gm/dl Hct (40.1-51.0) % MCV (79.0-92.2) fl MCH (25.7-32.2) pg MCHC (32.2-35.5) g/dl RDW Std Deviation (35.1-43.9) fL Plt Count (163-337) K/mm3 MPV (9.4-12.3) fl Neut % (Auto) (34.0-67.9) % Lymph % (Auto) (21.8-53.1) % [place] % (Auto) (5.3-12.2) % Eos % (Auto) (0.8-7.0) Baso % (Auto) (0.1-1.2) % Neut # (Auto) (1.78-5.38) K/mm3 Lymph # (Auto) (1.32-3.57) K/mm3 [place] # (Auto) (0.30-0.82) K/mm3 Eos # (Auto) (0.04-0.54) K/mm3 Baso # (Auto) (0.01-0.08) K/mm3 D-Dimer, Quantitative (0.19-0.50) mg/L Sodium (136-145) mEq/L Potassium (3.5-5.1) mEq/L Chloride (98-107) mEq/L Carbon Dioxide (21-32) mEq/L Anion Gap (5-15) BUN (7-18) mg/dL Creatinine (0.7-1.3) mg/dL Est Cr Clr Drug Dosing mL/min Estimated GFR (MDRD) (>60) mL/min BUN/Creatinine Ratio (14-18) Glucose (70-99) mg/dL Calcium (8.5-10.1) mg/dL Total Bilirubin (0.2-1.0) mg/dL AST (15-37) U/L ALT (16-63) U/L Alkaline Phosphatase (46-116) U/L Troponin I (0.00-0.056) ng/mL C-Reactive Protein (<1.0) mg/dL Total Protein (6.4-8.2) g/dl Albumin (3.4-5.0) g/dl Globulin gm/dL Albumin/Globulin Ratio (1-2) SARS-CoV-2 RNA (HERI) Negative (NEGATIVE) Meds: Medications Discontinued Medications Generic Name Dose Route Start Last Admin Trade Name Freq PRN Reason Stop Dose Admin Sodium Chloride 100 mls @ 60 mls/hr 03/06/21 19:30 03/06/21 19:50 Normal Saline IV 60 mls/hr ASDIRECTED SORAYA Administration Iopamidol 100 ml 03/06/21 19:24 03/06/21 19:49 Iopamidol 755 Mg/Ml 100 Ml Bottle IVPUSH 03/06/21 19:25 100 ml ONETIME ONE Administration Sodium Chloride 10 ml 03/06/21 17:31 03/06/21 19:49 Sodium Chloride 0.9% 10 Ml Syringe FLUSH 10 ml ASDIRECTED PRN Administration Keep Vein Open Sodium Chloride 10 ml 03/06/21 19:24 Sodium Chloride 0.9% 10 Ml Sdv FLUSH 03/06/21 19:25 ONETIME ONE - Re-Assessments/Exams Free Text/Narrative Re-Assessment/Exam: 03/06/21 19:16 Hematology significant for WBC minimally elevated at 9.3, D-dimer 0.82, potassium 3.4, CRP 23.0. Covid is negative. Chest x-ray shows no evidence of pneumonia. Patient is currently on doxycycline for treatment of pneumonia. Given patient's symptoms, I am going to order a CT scan angiogram of the chest to ensure he does not have a PE. Vital signs have remained normal throughout his stay in the ER. Oxygen saturation is 96% on room air. 03/06/21 20:30 CT angiogram of the chest impression as follows 1. No findings of pulmonary embolism. 2. Patchy area of increased density within the left lower lung raising possibility of pneumonia. 3. Small right-sided pleural effusion and minimal pericardial effusion is seen. 4. Old healing trauma to the distal sternum. Results discussed with patient. He is currently on doxycycline for treatment of pneumonia. Recommend that he continue this. Recommend follow-up with his primary care provider on Friday and return to ER for worsening symptoms. He verbalized understanding this. Discharge instructions as documented. Departure - Departure Time of Disposition: 20:30 Disposition: Home, Self-Care 01 Condition: Good Clinical Impression: Pneumonia Qualifiers: Pneumonia type: due to unspecified organism Laterality: left Lung location: lower lobe of lung Qualified Code(s): J18.9 - Pneumonia, unspecified organism - Discharge Information *PRESCRIPTION DRUG MONITORING PROGRAM REVIEWED*: No *COPY OF PRESCRIPTION DRUG MONITORING REPORT IN PATIENT LC: No Instructions: Community-Acquired Pneumonia, Adult Referrals: Manjit Triana MD [Primary Care Provider] - Forms: ED Department Discharge Additional Instructions: You were seen in the emergency department today for reevaluation of cough, shortness of breath, diarrhea, and body aches. Work-up included blood work, EKG of your heart, chest x-ray, and a CT angiogram of chest. Results of your work- up did show findings of left lower lobe pneumonia. There was a slight elevation in your D-dimer which raise concern of possible blood clot in your lungs, however this was ruled out on the CT scan. You do not have a blood clot in your lungs. CT scan did show that you have a small amount of fluid outside of your right lung as well as a small amount of fluid in the sac around your heart. Recommend follow-up with your primary care provider on Friday for a recheck and for ongoing monitoring of these findings. If you should experience any worsening symptoms, please return to the emergency department for reevaluation. Sepsis Event Note (ED) - Evaluation Sepsis Screening Result: Possible Sepsis Risk - Focused Exam Vital Signs: Vital Signs Temp Pulse Resp BP Pulse Ox 03/06/21 17:24 97.4 F 67 20 155/65 H 96 - My Orders Last 24 Hours: My Active Orders 03/06/21 17:31 Peripheral IV Insertion Adult [OM.PC] Stat - Assessment/Plan Last 24 Hours: My Active Orders 03/06/21 17:31 Peripheral IV Insertion Adult [OM.PC] Stat
[2021-03-06] MEDS ORDERED: Sodium Chloride 0.9% 10 ML SDV FLUSH ONE (19:24)
[2021-03-06] MEDS ORDERED: Iopamidol 755 Mg/ML 100 ML Bottle IVPUSH ONE (19:24)
[2021-03-06] MEDS ORDERED: Sodium Chloride 0.9% 100 ML IV SCH (19:30)
--- NOTE | 2021-03-06 20:20 | CT ---
CT chest Technique: Multiple axial sections were obtained from above the lung apices inferiorly through the lung bases. Intravenous contrast was utilized. Study has been performed as a pulmonary angiogram protocol. Comparison: Chest x-ray performed earlier on the same day. Findings: Pulmonary arteries are well opacified. No filling defects are seen to indicate pulmonary embolism. Thoracic aorta shows no aneurysm. Scattered lymph nodes are seen within the mediastinum which are felt to be within normal limits. Minimal pericardial effusion is seen. No acute abnormality is appreciated within the visualized abdomen. Within the lower mediastinum anteriorly there is increased fat being seen most likely representing a fat-containing hiatal hernia. Lymph node is noted next to the distal esophagus within the chest. Small right-sided pleural effusion is seen. There is an area of consolidation being seen within the left lung base raising the possibility of pneumonia. Lungs otherwise are clear. Bone window settings were reviewed. Scattered disc space narrowing and mild endplate spurring is seen within the spine. Slight deformity is noted of the distal sternum compatible with old fracture. Scattered surgical clips are seen within the anterior chest wall. Prior left shoulder prosthesis is also noted. Impression: 1. No findings of pulmonary embolism. 2. Patchy area of increased density within the left lower lung raising the possibility of pneumonia. 3. Small right-sided pleural effusion and minimal pericardial effusion is seen. 4. Old healed trauma within the distal sternum. Diagnostic code #3 I agree with preliminary report from [facility], finalized on 03/06/21, 9:16 PM CDT, code 2
--- NOTE | 2021-03-06 20:20 | CR ---
Chest: Portable view of the chest was obtained. Comparison: Prior chest x-ray of the 03/26/20. Heart size and mediastinum are normal. Multiple surgical clips are seen within the mid chest. Lungs are clear with no acute parenchymal change. Bony structure shows prior left shoulder surgery. Impression: 1. Findings as noted above. 2. Nothing acute is appreciated. Diagnostic code #2
== END 2021-03-06 20:55 | disposition home or self-care (01) ==
LOC: JD.ED 17:14
DX: J18.9 Pneumonia, unspecified organism (principal); J44.9 Chronic obstructive pulmonary disease, unspecified; E78.00 Pure hypercholesterolemia, unspecified; I10 Essential (primary) hypertension; Z88.6 Allergy status to analgesic agent; Z20.822 Contact with and (suspected) exposure to COVID-19; Z87.891 Personal history of nicotine dependence; Z79.82 Long term (current) use of aspirin; Z79.899 Other long term (current) drug therapy
CPT/HCPCS: 36415; 71045; 71275; 80053; 84484; 85025; 85379; 86140; 93005; 99285; Q9967; U0002; 93010; 99283

== ENCOUNTER 2021-06-13 11:41 | Emergency (ER) | payer MEDICARE, MEDICAID ==
[2021-06-13 12:06] VITALS: BP 145/72; PULSE 63
--- NOTE | 2021-06-13 12:59 | CR ---
Chest: Portable view of the chest was obtained. Comparison: Prior chest x-ray of 03/06/21. Diffuse peripheral density is seen within the left chest. Right lung is clear. Heart size is mildly enlarged. Surgical clips are seen superimposed over the mid chest. Bony structures show nothing acute. Impression: 1. Diffuse parenchymal density is seen peripherally along the left lateral chest. Please correlate if patient has any symptoms of COVID pneumonia. If no symptoms of COVID are present, noncontrast CT would otherwise be needed to further define. 2. Cardiomegaly and stable surgery. Diagnostic code #3
[2021-06-13] MEDS ORDERED: Famotidine 20 MG/2 ML SDV IVPUSH PRN (13:47)
[2021-06-13] MEDS ORDERED: EPINEPHrine 1 MG/ML SDV IM PRN (13:47)
[2021-06-13] MEDS ORDERED: diphenhydrAMINE 50 MG/ML SDV IVPUSH PRN (13:47)
[2021-06-13] MEDS ORDERED: methylPREDNISolone Sodium Succinate 125 MG/2 ML SDV IVPUSH PRN (13:47)
[2021-06-13] MEDS ORDERED: Sodium Chloride 0.9% 10 ML Syringe FLUSH SCH (14:00)
--- NOTE | 2021-06-13 14:08 | EDM.PDOC ---
ED HPI GENERAL MEDICAL PROBLEM - General Chief Complaint: Cardiovascular Problem Stated Complaint: CHEST TIGHTNESS Time Seen by Provider: 06/13/21 12:01 Source of Information: Reports: Patient History Limitations: Reports: No Limitations - History of Present Illness INITIAL COMMENTS - FREE TEXT/NARRATIVE: The patient presents with left sided chest pain. This started this morning about 8am. He denies having a fever, chills, or cough but he did tell my nurse this weekend he did have congestion and a cough. That is better now. He has some mild chest pain now. He has no abdominal pain, nausea or vomiting. He does not smoke. He has a history of asthma, COPD, CAD, and hypertension. Onset: Gradual Duration: Hour(s): Location: Reports: Chest Quality: Reports: Sharp Severity: Moderate Improves with: Reports: None Worsens with: Reports: None Associated Symptoms: Reports: Chest Pain, Cough. Denies: Fever/Chills, Headaches, Nausea/Vomiting, Shortness of Breath Chest Pain Score (Numeric/FACES): 5 - Related Data Allergies Allergy/AdvReac Type Severity Reaction Status Date / Time indomethacin Allergy Severe Airway Verified 06/13/21 12:08 Tightness Home Meds: Home Meds Albuterol [Proventil HFA] 1 puff INH QID PRN 09/06/15 [History] Levothyroxine [Synthroid] 100 mcg PO ACBREAKFAST 04/16/16 [History] Pantoprazole Sodium [Protonix] 40 mg PO DAILY #30 tablet. 04/17/16 [Rx] Montelukast [Singulair] 10 mg PO BEDTIME 05/14/16 [History] Lactobacillus Acidophilus [Probiotic] 1 each PO DAILY 10/22/16 [History] Multivitamin [Multivitamins] 1 cap PO BEDTIME 10/22/16 [History] buPROPion [Wellbutrin XL] 150 mg PO DAILY 10/22/16 [History] Spironolactone [Aldactone] 25 mg PO DAILY 09/17/18 [History] Tamsulosin HCl 0.4 mg PO DAILY 09/17/18 [History] Tiotropium [Spiriva HandiHaler] 2 puff INH BID 09/17/18 [History] FLUoxetine [PROzac] 80 mg PO DAILY 03/23/20 [History] Rosuvastatin [Crestor] 10 mg PO DAILY 03/23/20 [History] amLODIPine [Norvasc] 2.5 mg PO DAILY 03/23/20 [History] traZODone HCl [Trazodone HCl] 75 mg PO BEDTIME 03/23/20 [History] Albuterol [Proventil Neb Soln] 1 dose NEB Q4H PRN 04/28/20 [History] Aspirin [Halfprin] 81 mg PO DAILY 04/28/20 [History] Budesonide/Formoterol Fumarate [Symbicort 160-4.5 Mcg Inhaler] 2 puff INH BID 04/28/20 [History] Nitroglycerin [Nitrostat] 0.4 mg PO ASDIRECTED PRN 04/28/20 [History] ARIPiprazole [Aripiprazole] 15 mg PO BEDTIME 06/14/20 [History] predniSONE [Prednisone] 20 mg PO ASDIRECTED #15 tablet 06/14/20 [Rx] cephALEXin [Keflex] 500 mg PO QID #40 cap 07/28/20 [Rx] dexAMETHasone [Dexamethasone] 6 mg PO Q6H #12 tab 06/13/21 [Rx] traMADol [Ultram] 50 mg PO Q6HR PRN 06/13/21 [History] Past Medical History HEENT History: Reports: Glaucoma, Impaired Vision Other HEENT History: dentures, glasses Cardiovascular History: Reports: High Cholesterol, Hypertension, Other (See Below) Other Cardiovascular History: heart cath Respiratory History: Reports: Asthma, Bronchitis, Recurrent, COPD, Sleep Apnea, SOB Other Respiratory History: rhonchi, wheezes Gastrointestinal History: Reports: Cholelithiasis, Diverticulosis, Gastritis, GERD, Hiatal Hernia, Other (See Below) Other Gastrointestinal History: barretts esophagus, inguinal hernia, c diff, focal intestinal metaplasia, duodenitis, diverticulosis Genitourinary History: Reports: Other (See Below) 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 Musculoskeletal History: Reports: Arthritis, Osteoarthritis Other Musculoskeletal History: R hip pain, R shoulder pain, plantar fascitis Neurological History: Reports: None Psychiatric History: Reports: Anxiety, Bipolar, Depression Endocrine/Metabolic History: Reports: Hypothyroidism, Obesity/BMI 30+ Hematologic History: Reports: Anemia Immunologic History: Reports: None Oncologic (Cancer) History: Reports: None Dermatologic History: Reports: None - Infectious Disease History Infectious Disease History: Reports: None - Past Surgical History Head Surgeries/Procedures: Reports: None HEENT Surgical History: Reports: Cataract Surgery, Eye Surgery Cardiovascular Surgical History: Reports: None Respiratory Surgical History: Reports: None GI Surgical History: Reports: Cholecystectomy, Colonoscopy, EGD, Hernia, Inguinal, Hernia Repair/Other Male Surgical History: Reports: None Endocrine Surgical History: Reports: None Neurological Surgical History: Reports: None Musculoskeletal Surgical History: Reports: Hip Replacement, Shoulder Replacement, Shoulder Surgery Other Musculoskeletal Surgeries/Procedures:: R hand surgery, R elbow surgery, R total hip replacement, pigeon chest surgery Oncologic Surgical History: Reports: None Dermatological Surgical History: Reports: None Social & Family History - Family History Family Medical History: No Pertinent Family History Cardiac: Reports: Hypertension Other Cardiac Family History: Mother Respiratory: Reports: COPD, Other (See Below) Other Respiratory Family Hisory: Emphysema. mother GI: Reports: None : Reports: None Neurological: Reports: None Hematologic: Reports: None Immunologic: Reports: None Dermatologic: Reports: None Oncologic: Reports: None - Tobacco Use Tobacco Use Status *Q: Former Tobacco User Used Tobacco, but Quit: Yes Month/Year Tobacco Last Used: 11 yrs ago - Caffeine Use Caffeine Use: Reports: Coffee - Living Situation & Occupation Living situation: Reports: Single Occupation: Employed ED ROS GENERAL - Review of Systems Review Of Systems: See Below Constitutional: Reports: No Symptoms HEENT: Reports: No Symptoms Respiratory: Reports: Cough. Denies: Shortness of Breath Cardiovascular: Reports: Chest Pain Endocrine: Reports: No Symptoms GI/Abdominal: Reports: No Symptoms : Reports: No Symptoms Musculoskeletal: Reports: No Symptoms ED EXAM, GENERAL - Physical Exam Exam: See Below Exam Limited By: No Limitations General Appearance: Alert, No Apparent Distress Ears: Normal External Exam Nose: Normal Inspection Head: Atraumatic, Normocephalic Neck: Normal Inspection Respiratory/Chest: No Respiratory Distress, Lungs Clear, Normal Breath Sounds Cardiovascular: Regular Rate, Rhythm, No Edema, No Murmur GI/Abdominal: Soft, Non-Tender, No Organomegaly, No Mass Back Exam: Normal Inspection Extremities: Normal Inspection #1 Interpretation EKG Date: 06/13/21 Time: 11:52 Rhythm: NSR Rate (Beats/Min): 64 Grahn: Normal P-Wave: Present QRS: RBBB ST-T: Normal QT: Normal Course - Vital Signs Last Recorded V/S: Last Vital Signs Temp 97.8 F 06/13/21 12:04 Pulse 63 06/13/21 12:04 Resp 16 06/13/21 12:04 BP 145/72 H 06/13/21 12:04 Pulse Ox 96 06/13/21 12:04 - Orders/Labs/Meds Orders: Active Orders 24 hr Category Date Time Status Cardiac Monitoring [RC] . DIRECTED Care 06/13/21 12:14 Active Vital Signs [RC] Q15M Care 06/13/21 13:47 Active Bamlanivimab 700 mg Med 06/13/21 14:30 Active Etesevimab [Etesevimab (EUA)] 1,400 mg Sodium Chloride 0.9% [Normal Saline] 100 ml IV ONETIME EPINEPHrine [Adrenalin] Med 06/13/21 13:47 Active 0.3 mg IM ASDIRECTED PRN Famotidine [Pepcid] Med 06/13/21 13:47 Active 20 mg IVPUSH ASDIRECTED PRN Sodium Chloride 0.9% [Saline Flush] Med 06/13/21 14:00 Active 30 ml FLUSH ASDIRECTED diphenhydrAMINE [Benadryl] Med 06/13/21 13:47 Active 50 mg IVPUSH ASDIRECTED PRN methylPREDNISolone Sod Succ [Solu-MEDROL] Med 06/13/21 13:47 Active 125 mg IVPUSH ASDIRECTED PRN Medication Orders Diphenhydramine HCl (Diphenhydramine 50 Mg/Ml Sdv) 50 mg IVPUSH ASDIRECTED PRN PRN Reason: hypersensitivity reaction Epinephrine HCl (Epinephrine 1 Mg/Ml Sdv) 0.3 mg IM ASDIRECTED PRN PRN Reason: hypersensitivity reaction Famotidine (Famotidine 20 Mg/2 Ml Sdv) 20 mg IVPUSH ASDIRECTED PRN PRN Reason: hypersensitivity reaction Bamlanivimab 700 mg/Etesevimab 1,400 mg/ Sodium Chloride 160 mls @ 310 mls/hr IV ONETIME SORAYA Methylprednisolone Sodium Succinate (Methylprednisolone Sodium Succinate 125 Mg/2 Ml Sdv) 125 mg IVPUSH ASDIRECTED PRN PRN Reason: hypersensitivity reaction Sodium Chloride (Sodium Chloride 0.9% 10 Ml Syringe) 30 ml FLUSH ASDIRECTED SORAYA Labs: Laboratory Tests 06/13/21 06/13/21 06/13/21 Range/Units 11:55 12:43 12:43 WBC 6.78 (4.23-9.07) K/mm3 RBC 4.39 L (4.63-6.08) M/mm3 Hgb 13.3 L (13.7-17.5) gm/dl Hct 40.1 (40.1-51.0) % MCV 91.3 (79.0-92.2) fl MCH 30.3 (25.7-32.2) pg MCHC 33.2 (32.2-35.5) g/dl RDW Std Deviation 45.7 H (35.1-43.9) fL Plt Count 207 (163-337) K/mm3 MPV 9.4 (9.4-12.3) fl Neut % (Auto) 76.8 H (34.0-67.9) % Lymph % (Auto) 11.2 L (21.8-53.1) % [place] % (Auto) 10.9 (5.3-12.2) % Eos % (Auto) 0.4 L (0.8-7.0) Baso % (Auto) 0.1 (0.1-1.2) % Neut # (Auto) 5.20 (1.78-5.38) K/mm3 Lymph # (Auto) 0.76 L (1.32-3.57) K/mm3 [place] # (Auto) 0.74 (0.30-0.82) K/mm3 Eos # (Auto) 0.03 L (0.04-0.54) K/mm3 Baso # (Auto) 0.01 (0.01-0.08) K/mm3 Manual Slide Review Normal smear Sodium 140 (136-145) mEq/L Potassium 3.9 (3.5-5.1) mEq/L Chloride 102 (98-107) mEq/L Carbon Dioxide 28 (21-32) mEq/L Anion Gap 13.9 (5-15) BUN 13 (7-18) mg/dL Creatinine 1.2 (0.7-1.3) mg/dL Est Cr Clr Drug Dosing 70.59 mL/min Estimated GFR (MDRD) > 60 (>60) mL/min BUN/Creatinine Ratio 10.8 L (14-18) Glucose 101 H (70-99) mg/dL Calcium 8.9 (8.5-10.1) mg/dL Total Bilirubin 0.5 (0.2-1.0) mg/dL AST 27 (15-37) U/L ALT 36 (16-63) U/L Alkaline Phosphatase 98 (46-116) U/L Troponin I < 0.017 (0.00-0.056) ng/mL Total Protein 8.0 (6.4-8.2) g/dl Albumin 3.6 (3.4-5.0) g/dl Globulin 4.4 gm/dL Albumin/Globulin Ratio 0.8 L (1-2) SARS-CoV-2 RNA (HERI) Positive H (NEGATIVE) Meds: Medications Generic Name Dose Route Start Last Admin Trade Name Freq PRN Reason Stop Dose Admin Diphenhydramine HCl 50 mg 06/13/21 13:47 Diphenhydramine 50 Mg/Ml Sdv IVPUSH ASDIRECTED PRN hypersensitivity reaction Epinephrine HCl 0.3 mg 06/13/21 13:47 Epinephrine 1 Mg/Ml Sdv IM ASDIRECTED PRN hypersensitivity reaction Famotidine 20 mg 06/13/21 13:47 Famotidine 20 Mg/2 Ml Sdv IVPUSH ASDIRECTED PRN hypersensitivity reaction Bamlanivimab 700 mg/ 160 mls @ 310 mls/hr 06/13/21 14:30 Etesevimab 1,400 mg/ Sodium IV Chloride ONETIME SORAYA Methylprednisolone Sodium Succinate 125 mg 06/13/21 13:47 Methylprednisolone Sodium Succinate 125 Mg/2 Ml Sdv IVPUSH ASDIRECTED PRN hypersensitivity reaction Sodium Chloride 30 ml 06/13/21 14:00 Sodium Chloride 0.9% 10 Ml Syringe FLUSH ASDIRECTED SORAYA - Re-Assessments/Exams Free Text/Narrative Re-Assessment/Exam: 06/13/21 14:10 I ordered an IV saline lock, EKG, CXR, labs and COVID. His EKG shows a NSR with RBBB with no acute changes. His CXR shows diffuse parenchymal density is seen peripherally along the left lateral chest. Please correlate if patient has any symptoms of COVID pneumonia. If no symptoms of COVID are present, noncontrast CT would otherwise be needed to further define. Cardiomegaly and stable surgery. His CBC and CMP look good. His troponin is negative. He is COVID positive. 06/13/21 14:24 I spoke with the patient to provide information about REGEN-COV treatment. I offered them the Patient and Caregiver NIKKI REGEN-COV Fact Sheet to read and review. I stated the drug has been approved by an emergency use authorization (EUA} process and has not fully been FDA reviewed or approved. The patient meets the EUA requirements. I discussed there are other potential treatment options that are currently not FDA approved to treat COVID 19. Offered opportunity to ask questions and all questions were answered. The patient voiced understanding and agreed to proceed with treatment. 06/13/21 15:29 I will get him on dexamethasone. 06/13/21 Departure - Departure Time of Disposition: 15:30 Disposition: Home, Self-Care 01 Condition: Good Clinical Impression: Pneumonia due to COVID-19 virus, Atypical chest pain Prescriptions: dexAMETHasone [Dexamethasone] 6 mg PO Q6H #12 tab Referrals: Manjit Triana MD [Primary Care Provider] - 1 Week Forms: ED Department Discharge Additional Instructions: Take the dexamethasone 6mg or 1 1/2 pills daily until done. Drink plenty of fluids. Take tylenol or motrin as needed for fever or pain. Take the rest of your medications as prescribed. Use your inhaler 2 puffs every 6 hours as needed for shortness. Please return if you are worse or if your pulse oximeter stays below 90%. Sepsis Event Note (ED) - Evaluation Sepsis Screening Result: No Definite Risk - Focused Exam Vital Signs: Vital Signs Temp Pulse Pulse Resp BP BP Pulse Ox 06/13/21 12:04 97.8 F 63 16 145/72 H 96 06/13/21 12:01 97.5 F 63 18 145/72 H 95 - My Orders Last 24 Hours: My Active Orders 06/13/21 12:14 Cardiac Monitoring [RC] . DIRECTED 06/13/21 13:47 Vital Signs [RC] Q15M EPINEPHrine [Adrenalin] 0.3 mg IM ASDIRECTED PRN Famotidine [Pepcid] 20 mg IVPUSH ASDIRECTED PRN diphenhydrAMINE [Benadryl] 50 mg IVPUSH ASDIRECTED PRN methylPREDNISolone Sod Succ [Solu-MEDROL] 125 mg IVPUSH ASDIRECTED PRN 06/13/21 14:00 Sodium Chloride 0.9% [Saline Flush] 30 ml FLUSH ASDIRECTED 06/13/21 14:30 Bamlanivimab 700 mg Etesevimab [Etesevimab (EUA)] 1,400 mg Sodium Chloride 0.9% [Normal Saline] 100 ml IV ONETIME - Assessment/Plan Last 24 Hours: My Active Orders 06/13/21 12:14 Cardiac Monitoring [RC] . DIRECTED 06/13/21 13:47 Vital Signs [RC] Q15M EPINEPHrine [Adrenalin] 0.3 mg IM ASDIRECTED PRN Famotidine [Pepcid] 20 mg IVPUSH ASDIRECTED PRN diphenhydrAMINE [Benadryl] 50 mg IVPUSH ASDIRECTED PRN methylPREDNISolone Sod Succ [Solu-MEDROL] 125 mg IVPUSH ASDIRECTED PRN 06/13/21 14:00 Sodium Chloride 0.9% [Saline Flush] 30 ml FLUSH ASDIRECTED 06/13/21 14:30 Bamlanivimab 700 mg Etesevimab [Etesevimab (EUA)] 1,400 mg Sodium Chloride 0.9% [Normal Saline] 100 ml IV ONETIME
[2021-06-13] MEDS ORDERED: Bamlanivimab 700 MG, ETESEVIMAB 1,400 MG in Sodium Chloride 0.9% 100 ML IV SCH (14:30)
== END 2021-06-13 16:30 | disposition home or self-care (01) ==
LOC: JD.ED 11:41
DX: U07.1 COVID-19 (principal); J12.82 Pneumonia due to coronavirus disease 2019; R07.89 Other chest pain; I45.10 Unspecified right bundle-branch block; E78.00 Pure hypercholesterolemia, unspecified; I10 Essential (primary) hypertension; J44.9 Chronic obstructive pulmonary disease, unspecified; K21.9 Gastro-esophageal reflux disease without esophagitis; M19.90 Unspecified osteoarthritis, unspecified site; E03.9 Hypothyroidism, unspecified; E66.9 Obesity, unspecified; Z68.35 Body mass index [BMI] 35.0-35.9, adult; Z87.891 Personal history of nicotine dependence; Z88.6 Allergy status to analgesic agent; Z79.82 Long term (current) use of aspirin; Z79.899 Other long term (current) drug therapy
CPT/HCPCS: 36415; 71045; 71045-26; 80053; 84484; 85025; 93005; 99285-25; M0245; Q0245; U0002

== ENCOUNTER 2022-09-21 13:01 | Emergency (ER) | payer MEDICARE, MEDICAID ==
[2022-09-21] MEDS ORDERED: Sodium Chloride 0.9% 10 ML Syringe FLUSH PRN (13:29)
[2022-09-21] MEDS ORDERED: Ondansetron 4 MG/2 ML SDV IVPUSH ONE (13:43)
[2022-09-21] MEDS ORDERED: Alum Hydrox/Mag Hydrox/Simeth 30 ML, Lidocaine 2% 15 ML PO ONE ×2 (13:44)
[2022-09-21] MEDS ORDERED: Aspirin 81 MG Tab.Chew PO ONE (13:49)
[2022-09-21 15:30] VITALS: BP 119/70; PULSE 62
== END 2022-09-21 15:31 | disposition home or self-care (01) ==
LOC: JD.ED 13:01
DX: R07.89 Other chest pain (principal); K21.9 Gastro-esophageal reflux disease without esophagitis; E78.00 Pure hypercholesterolemia, unspecified; I10 Essential (primary) hypertension; J44.9 Chronic obstructive pulmonary disease, unspecified; E03.9 Hypothyroidism, unspecified; M19.90 Unspecified osteoarthritis, unspecified site; E66.9 Obesity, unspecified; Z88.8 Allergy status to other drugs, medicaments and biological substances; Z68.39 Body mass index [BMI] 39.0-39.9, adult; Z79.82 Long term (current) use of aspirin; Z79.899 Other long term (current) drug therapy
CPT/HCPCS: 36415; 71046; 80053; 83880; 84484; 85025; 85379; 93005; 96374; 99285; A9270; J2405; J3490; 93010; 99284

== ENCOUNTER 2023-03-18 11:00 | Emergency (ER) | payer MEDICARE, MEDICAID ==
[2023-03-18] MEDS ORDERED: Sodium Chloride 0.9% 10 ML Syringe FLUSH PRN (11:27)
[2023-03-18 12:16] LABS: APPEARANCE,URINE CLEAR (Clear); BILIRUBIN,URINE NEGATIVE (Negative); COLOR,URINE YELLOW (Yellow); GLUCOSE,URINE NEGATIVE (Negative); KETONES,URINE NEGATIVE (Negative); LEUKOCYTE ESTERASE,URINE NEGATIVE (Negative); NITRITE,URINE NEGATIVE (Negative); OCCULT BLOOD,URINE NEGATIVE (Negative); PROTEIN,URINE NEGATIVE (Negative); UROBILINOGEN,URINE 0.2 (0.2-1.0)
[2023-03-18 12:20] LABS: BASOPHILS ABSOLUTE AUTO 0.01 K/mm3 (0.01-0.08); BASOPHILS PERCENT AUTO 0.2 % (0.1-1.2); EOSINOPHILS ABSOLUTE AUTO 0.08 K/mm3 (0.04-0.54); EOSINOPHILS PERCENT AUTO 1.4 (0.8-7.0); HEMATOCRIT 40.8 % (40.1-51.0); HEMOGLOBIN 13.9 gm/dl (13.7-17.5); IMMATURE GRAN ABSOLUTE AUTO 0.01 K/mm3 (0.00-0.10); IMMATURE GRAN PERCENT AUTO 0.2 % (<=1.0); LYMPHOCYTES ABSOLUTE AUTO 1.25 K/mm3 (1.32-3.57); LYMPHOCYTES PERCENT AUTO 22.4 % (21.8-53.1); MEAN CORPUSCULAR HEMOGLOBIN 30.3 pg (25.7-32.2); MEAN CORPUSCULAR HGB CONC 34.1 g/dl (32.2-35.5); MEAN CORPUSCULAR VOLUME 88.9 fl (79.0-92.2); MEAN PLATELET VOLUME 9.3 fl (9.4-12.3); MONOCYTES ABSOLUTE AUTO 0.47 K/mm3 (0.30-0.82); MONOCYTES PERCENT AUTO 8.4 % (5.3-12.2); NEUTROPHILS ABSOLUTE AUTO 3.76 K/mm3 (1.78-5.38); NEUTROPHILS PERCENT AUTO 67.4 % (34.0-67.9); PLATELET COUNT,PLT 248 K/mm3 (163-337); RED BLOOD CELL COUNT 4.59 M/mm3 (4.63-6.08); WHITE BLOOD CELL COUNT,WBC 5.58 K/mm3 (4.23-9.07)
[2023-03-18 12:47] LABS: BACTERIA,URINE RARE /hpf (FEW); EPITHELIAL CELLS,URINE NOT SEEN /hpf (0-5); MUCUS,URINE NOT SEEN /hpf (FEW); RBC,URINE 0-5 /hpf (0-5); WBC,URINE NOT SEEN /hpf (0-5)
[2023-03-18 13:08] LABS: A/G RATIO 1.1 (1-2); ALANINE AMINOTRANSFERASE,ALT 36 U/L (16-63); ALBUMIN 3.9 g/dl (3.4-5.0); ALKALINE PHOSPHATASE 110 U/L (46-116); ANION GAP 14.6 (5-15); ASPARTATE AMNIOTRANSFERASE,AST 16 U/L (15-37); BILIRUBIN TOTAL 0.3 mg/dL (0.2-1.0); BLOOD UREA NITROGEN,BUN 16 mg/dL (7-18); BUN/CREATININE RATIO 11.4 (14-18); CALCIUM 9.2 mg/dL (8.5-10.1); CARBON DIOXIDE,CO2 27 mEq/L (21-32); CHLORIDE,CL 104 mEq/L (98-107); CREATININE 1.4 mg/dL (0.7-1.3); EST CRCL DRUG DOSING (CG) 59.01 mL/min; ESTIMATED GFR 57 mL/min (>60); GLUCOSE RANDOM 133 mg/dL (70-99); POTASSIUM,K 3.6 mEq/L (3.5-5.1); PROTEIN TOTAL,TP 7.5 g/dl (6.4-8.2); SODIUM,NA 142 mEq/L (136-145)
[2023-03-18 13:09] LABS: C-REACTIVE PROTEIN < 0.2 mg/dL (<1.0)
[2023-03-18 14:31] VITALS: BP 127/79; PULSE 52
== END 2023-03-18 14:23 | disposition home or self-care (01) ==
LOC: JD.ED 11:00
DX: R42 Dizziness and giddiness (principal); R68.83 Chills (without fever); I10 Essential (primary) hypertension; E78.00 Pure hypercholesterolemia, unspecified; J44.9 Chronic obstructive pulmonary disease, unspecified; K21.9 Gastro-esophageal reflux disease without esophagitis; M19.90 Unspecified osteoarthritis, unspecified site; E03.9 Hypothyroidism, unspecified; E66.9 Obesity, unspecified; Z68.41 Body mass index [BMI] 40.0-44.9, adult; Z20.822 Contact with and (suspected) exposure to COVID-19; Z87.891 Personal history of nicotine dependence; Z86.16 Personal history of COVID-19; Z79.82 Long term (current) use of aspirin; Z79.899 Other long term (current) drug therapy; Z88.8 Allergy status to other drugs, medicaments and biological substances
CPT/HCPCS: 36415; 71046; 80053; 81001; 84484; 85025; 86140; 93005; 99284; J3490; U0002; 93010

== ENCOUNTER 2023-06-18 08:18 | Day surgery (SDC) | payer MEDICARE, MEDICAID ==
[~2023-06-18 08:18] MED LIST changes: -Lidocaine 1%/Sod Bicarbonate in NS 8.4% 1 ML Syringe IDERM PRN; +Sodium Chloride 0.9% 10 ML Syringe FLUSH SCH
[2023-06-18] MEDS ORDERED: HYDROmorphone 0.5 MG/0.5 ML Syringe IVPUSH PRN (09:08)
[2023-06-18] MEDS ORDERED: fentaNYL 100 MCG/2 ML SDV IVPUSH PRN (09:08)
[2023-06-18] MEDS ORDERED: Ondansetron 4 MG/2 ML SDV IVPUSH PRN (09:08)
[2023-06-18] MEDS ORDERED: Midazolam 1 MG/ML 2 ML SDV ONE (09:44)
[2023-06-18] MEDS ORDERED: fentaNYL 100 MCG/2 ML SDV ONE (09:45)
[2023-06-18] MEDS ORDERED: Propofol 200 MG/20 ML SDV ONE ×3 (09:46→10:26)
[2023-06-18 11:35] VITALS: BP 111/51; PULSE 50
== END 2023-06-18 12:02 | disposition home or self-care (01) ==
LOC: JD.SDS 08:18
PROVIDERS: ATTEND Surgery
DX: K22.710 Barrett's esophagus with low grade dysplasia (principal); D12.1 Benign neoplasm of appendix; K62.1 Rectal polyp; G47.33 Obstructive sleep apnea (adult) (pediatric); K29.70 Gastritis, unspecified, without bleeding; K21.9 Gastro-esophageal reflux disease without esophagitis; Q43.8 Other specified congenital malformations of intestine; J44.9 Chronic obstructive pulmonary disease, unspecified; I13.0 Hypertensive heart and chronic kidney disease with heart failure and stage 1 through stage 4 chronic kidney disease, or unspecified chronic kidney disease; I50.9 Heart failure, unspecified; N18.9 Chronic kidney disease, unspecified; E78.2 Mixed hyperlipidemia; I25.10 Atherosclerotic heart disease of native coronary artery without angina pectoris; N40.0 Benign prostatic hyperplasia without lower urinary tract symptoms; E03.9 Hypothyroidism, unspecified; E66.01 Morbid (severe) obesity due to excess calories; Z68.41 Body mass index [BMI] 40.0-44.9, adult; Z87.891 Personal history of nicotine dependence; Z79.890 Hormone replacement therapy; Z79.899 Other long term (current) drug therapy
CPT/HCPCS: 43239; 45380; J2250; J2704; J3010; J7120; 00813

== ENCOUNTER 2023-12-09 15:54 | Emergency (ER) | payer MEDICARE, MEDICAID ==
[2023-12-09] MEDS: LORazepam 2 MG/ML SDV IVPUSH ONE (17:24)
[2023-12-09] MEDS: Glucagon,Human Recombinant 1 MG Vial IVPUSH ONE (17:30)
[2023-12-09 18:16] LABS: BASOPHILS PERCENT AUTO 0.5 % (0.0-1.0); EOSINOPHILS ABSOLUTE AUTO 0.1 K/mm3 (0.0-0.4); EOSINOPHILS PERCENT AUTO 1.8 % (0.0-6.0); HEMATOCRIT 39.7 % (42.0-52.0); HEMOGLOBIN 13.6 gm/dl (14.0-18.0); IMMATURE GRAN ABSOLUTE AUTO 0.01 K/mm3 (0.00-0.05); IMMATURE GRAN PERCENT AUTO 0.2 % (0.0-0.4); LYMPHOCYTES ABSOLUTE AUTO 1.2 K/mm3 (1.0-4.8); LYMPHOCYTES PERCENT AUTO 18.3 % (24.0-44.0); MEAN CORPUSCULAR HEMOGLOBIN 30.5 pg (28.0-32.0); MEAN CORPUSCULAR HGB CONC 34.3 g/dl (32.0-36.0); MEAN PLATELET VOLUME 9.7 fl (9.4-12.4); MONOCYTES ABSOLUTE AUTO 0.6 K/mm3 (0.0-0.8); NEUTROPHILS ABSOLUTE AUTO 4.3 K/mm3 (1.8-7.7); NEUTROPHILS PERCENT AUTO 69.2 % (41.0-71.0); PLATELET COUNT,PLT 227 K/mm3 (150-400); RED BLOOD CELL COUNT 4.46 M/mm3 (4.52-5.90); WHITE BLOOD CELL COUNT,WBC 6.27 K/mm3 (3.9-11.3)
[2023-12-09 18:43] LABS: A/G RATIO 1.3 (1-2); ANION GAP 13.1 (5-15); BILIRUBIN TOTAL 0.4 mg/dL (0.2-1.0); BUN/CREATININE RATIO 9.2 (14-18); CALCIUM 8.9 mg/dL (8.5-10.1); CREATININE 1.3 mg/dL (0.7-1.3); EST CRCL DRUG DOSING (CG) 62.75 mL/min; POTASSIUM,K 3.1 mEq/L (3.5-5.1); PROTEIN TOTAL,TP 7.1 g/dl (6.4-8.2)
[2023-12-09] MEDS: Sodium Chloride 0.9% 1,000 ML IV STA (18:49)
[2023-12-10 05:34] VITALS: BP 111/66; PULSE 54
== END 2023-12-10 04:45 | disposition home or self-care (01) ==
LOC: JD.ED 15:54
DX: K22.2 Esophageal obstruction (principal); I25.10 Atherosclerotic heart disease of native coronary artery without angina pectoris; E78.00 Pure hypercholesterolemia, unspecified; I12.9 Hypertensive chronic kidney disease with stage 1 through stage 4 chronic kidney disease, or unspecified chronic kidney disease; N18.9 Chronic kidney disease, unspecified; E03.9 Hypothyroidism, unspecified; E66.9 Obesity, unspecified; Z86.16 Personal history of COVID-19; Z79.899 Other long term (current) drug therapy; Z88.8 Allergy status to other drugs, medicaments and biological substances; Z68.39 Body mass index [BMI] 39.0-39.9, adult
CPT/HCPCS: 36415; 71045; 80053; 85025; 96361; 96374; 96375; 99284; J1610; J2060; J7030

== ENCOUNTER 2024-07-02 20:06 | Emergency (ER) | payer MEDICARE, OTHER, MEDICAID ==
[2024-07-02 20:40] LABS: HEMATOCRIT 40.9 % (42.0-52.0); HEMOGLOBIN 13.9 gm/dl (14.0-18.0); MEAN CORPUSCULAR HEMOGLOBIN 29.8 pg (28.0-32.0); MEAN CORPUSCULAR VOLUME 87.8 fl (83.0-99.0); MEAN PLATELET VOLUME 9.4 fl (9.4-12.4); PLATELET COUNT,PLT 219 K/mm3 (150-400); RED BLOOD CELL COUNT 4.66 M/mm3 (4.52-5.90); WHITE BLOOD CELL COUNT,WBC 8.92 K/mm3 (3.9-11.3)
[2024-07-02] MEDS ORDERED: Naloxone 0.4 MG/ML SDV IVPUSH PRN ×2 (20:57→21:38)
[2024-07-02 20:58] LABS: INR 1.01; PROTHROMBIN TIME 10.7 SECONDS (9.7-12.0)
[2024-07-02 21:03] LABS: A/G RATIO 1.1 (1-2); ALBUMIN 3.9 g/dl (3.4-5.0); ANION GAP 15.7 (5-15); BILIRUBIN TOTAL 0.7 mg/dL (0.2-1.0); CALCIUM 9.1 mg/dL (8.5-10.1); CREATININE 1.5 mg/dL (0.7-1.3); EST CRCL DRUG DOSING (CG) 54.38 mL/min; POTASSIUM,K 3.7 mEq/L (3.5-5.1); PROTEIN TOTAL,TP 7.5 g/dl (6.4-8.2)
[2024-07-02] MEDS: Morphine 4 MG/ML Syringe IVPUSH ONE (21:03)
[2024-07-02] MEDS: Sodium Chloride 0.9% 10 ML Syringe FLUSH PRN (21:04)
[2024-07-02 21:08] LABS: LACTIC ACID 0.8 mmol/L (0.4-2.0)
[2024-07-02 21:13] LABS: BAND PERCENT MAN 0 % (0-10); BASOPHILS PERCENT MAN 0 (0.2-1.2); EOSINOPHILS PERCENT MAN 1 % (0.8-7.0); LYMPHOCYTES % ATYPICAL MANUAL 0 %; LYMPHOCYTES PERCENT MAN 6 % (20-40); MONOCYTES PERCENT MAN 4 % (2-10)
[2024-07-02 21:14] LABS: PLATELET COUNT ESTIMATE ADEQUATE
[2024-07-02 21:20] LABS: APPEARANCE,URINE CLEAR (Clear); BILIRUBIN,URINE NEGATIVE (Negative); COLOR,URINE YELLOW (Yellow); GLUCOSE,URINE NEGATIVE (Negative); KETONES,URINE NEGATIVE (Negative); LEUKOCYTE ESTERASE,URINE NEGATIVE (Negative); NITRITE,URINE NEGATIVE (Negative); OCCULT BLOOD,URINE TRACE-INTACT (Negative); PROTEIN,URINE TRACE (Negative)
[2024-07-02] MEDS: Ondansetron 4 MG/2 ML SDV IVPUSH ONE (21:53)
[2024-07-02] MEDS: HYDROmorphone 0.5 MG/0.5 ML Syringe IVPUSH ONE (21:58)
[2024-07-02 21:59] LABS: BACTERIA,URINE FEW /hpf (FEW); MUCUS,URINE FEW /hpf (FEW)
[2024-07-02 23:03] VITALS: PULSE 72
[2024-07-02] MEDS: Diatrizoate Meglumine/Diatrizoate Sodium 37% 120 ML Bottle PO ONE (23:19)
[2024-07-02] MEDS: Iopamidol 612 MG/ML 100 ML Bottle IVPUSH ONE (23:22)
[2024-07-03] MEDS: cefTRIAXone 500 MG Vial IVPUSH ONE (00:11)
[2024-07-03 00:40] VITALS: BP 115/75
== END 2024-07-03 00:36 | disposition home or self-care (01) ==
LOC: JD.ED 20:06
DX: N39.0 Urinary tract infection, site not specified (principal); I25.10 Atherosclerotic heart disease of native coronary artery without angina pectoris; I12.9 Hypertensive chronic kidney disease with stage 1 through stage 4 chronic kidney disease, or unspecified chronic kidney disease; N18.9 Chronic kidney disease, unspecified; E78.00 Pure hypercholesterolemia, unspecified; J44.89 Other specified chronic obstructive pulmonary disease; E03.9 Hypothyroidism, unspecified; E66.9 Obesity, unspecified; Z86.16 Personal history of COVID-19; Z90.49 Acquired absence of other specified parts of digestive tract; Z96.649 Presence of unspecified artificial hip joint; Z96.619 Presence of unspecified artificial shoulder joint; Z88.8 Allergy status to other drugs, medicaments and biological substances; Z79.51 Long term (current) use of inhaled steroids; Z79.890 Hormone replacement therapy; Z79.899 Other long term (current) drug therapy; Z68.41 Body mass index [BMI] 40.0-44.9, adult
CPT/HCPCS: 36415; 74177; 80053; 81001; 83605; 85007; 85027; 85610; 85652; 86140; 96374; 96375; 99284; J0696; J1171; J2270; J2405; Q9963; Q9967; 99283

== ENCOUNTER 2024-10-11 13:46 | Emergency (ER) | payer MEDICARE, OTHER, MEDICAID ==
[2024-10-11 14:06] VITALS: BP 218/80; PULSE 67
[2024-10-11] MEDS ORDERED: Sodium Chloride 0.9% 10 ML Syringe FLUSH PRN (14:11)
[2024-10-11 14:35] LABS: BASOPHILS PERCENT AUTO 0.2 % (0.0-1.0); EOSINOPHILS ABSOLUTE AUTO 0.1 K/mm3 (0.0-0.4); EOSINOPHILS PERCENT AUTO 1.4 % (0.0-6.0); HEMATOCRIT 41.2 % (42.0-52.0); HEMOGLOBIN 14.2 gm/dl (14.0-18.0); IMMATURE GRAN ABSOLUTE AUTO 0.03 K/mm3 (0.00-0.05); IMMATURE GRAN PERCENT AUTO 0.5 % (0.0-0.4); LYMPHOCYTES ABSOLUTE AUTO 1.7 K/mm3 (1.0-4.8); MEAN CORPUSCULAR HEMOGLOBIN 30.1 pg (28.0-32.0); MEAN CORPUSCULAR HGB CONC 34.5 g/dl (32.0-36.0); MEAN CORPUSCULAR VOLUME 87.3 fl (83.0-99.0); MEAN PLATELET VOLUME 10.1 fl (9.4-12.4); MONOCYTES ABSOLUTE AUTO 0.7 K/mm3 (0.0-0.8); MONOCYTES PERCENT AUTO 11.3 % (0.0-8.0); NEUTROPHILS ABSOLUTE AUTO 3.9 K/mm3 (1.8-7.7); NEUTROPHILS PERCENT AUTO 60.6 % (41.0-71.0); PLATELET COUNT,PLT 233 K/mm3 (150-400); RED BLOOD CELL COUNT 4.72 M/mm3 (4.52-5.90); WHITE BLOOD CELL COUNT,WBC 6.46 K/mm3 (3.9-11.3)
[2024-10-11 14:39] LABS: INR 0.98; PROTHROMBIN TIME 10.4 SECONDS (9.7-12.0)
[2024-10-11] MEDS: Sodium Chloride 0.9% 1,000 ML IV ONE (14:40)
[2024-10-11 14:50] LABS: A/G RATIO 1.3 (1-2); ALBUMIN 4.2 g/dl (3.4-5.0); BILIRUBIN TOTAL 0.4 mg/dL (0.2-1.0); BUN/CREATININE RATIO 19.3 (14-18); CALCIUM 9.4 mg/dL (8.5-10.1); CREATININE 1.4 mg/dL (0.7-1.3); EST CRCL DRUG DOSING (CG) 58.27 mL/min; MAGNESIUM 1.9 mg/dL (1.8-2.4); PROTEIN TOTAL,TP 7.5 g/dl (6.4-8.2)
[2024-10-11 15:08] LABS: APPEARANCE,URINE CLEAR (Clear); BILIRUBIN,URINE NEGATIVE (Negative); COLOR,URINE YELLOW (Yellow); GLUCOSE,URINE NEGATIVE (Negative); KETONES,URINE NEGATIVE (Negative); LEUKOCYTE ESTERASE,URINE NEGATIVE (Negative); NITRITE,URINE NEGATIVE (Negative); OCCULT BLOOD,URINE TRACE-INTACT (Negative); PROTEIN,URINE NEGATIVE (Negative); UROBILINOGEN,URINE 0.2 (0.2-1.0)
[2024-10-11 15:28] LABS: RBC,URINE 0-5 /hpf (0-5); SQUAMOUS EPITHELIAL CELLS,UR 0-5 /hpf (0-5); WBC,URINE 0-5 /hpf (0-5)
[2024-10-11 15:29] LABS: BACTERIA,URINE MANY /hpf (FEW); MUCUS,URINE FEW /hpf (FEW)
[2024-10-11] MEDS: Aspirin 81 MG Tab.Chew PO ONE (16:03)
== END 2024-10-11 16:11 | disposition home or self-care (01) ==
LOC: JD.ED 13:46
DX: R47.81 Slurred speech (principal); I25.10 Atherosclerotic heart disease of native coronary artery without angina pectoris; I11.0 Hypertensive heart disease with heart failure; I50.9 Heart failure, unspecified; E78.00 Pure hypercholesterolemia, unspecified; E03.9 Hypothyroidism, unspecified; Z86.16 Personal history of COVID-19; Z88.8 Allergy status to other drugs, medicaments and biological substances; Z79.51 Long term (current) use of inhaled steroids; Z79.890 Hormone replacement therapy; Z79.899 Other long term (current) drug therapy
CPT/HCPCS: 36415; 70450; 70496; 70498; 71045; 80053; 81001; 82947; 83735; 83880; 84484; 85025; 85610; 85730; 87428; 93005; 96360; 99285; A9270; J7030; 93010; 99284

== ENCOUNTER 2024-11-24 15:08 | Emergency (ER) | payer MEDICARE, OTHER, MEDICAID ==
[2024-11-24] MEDS: Sodium Chloride 0.9% 1,000 ML IV STA (15:57)
[2024-11-24] MEDS: HYDROmorphone 0.5 MG/0.5 ML Syringe IVPUSH ONE (15:58)
[2024-11-24] MEDS: Ondansetron 4 MG/2 ML SDV IVPUSH ONE (15:58)
[2024-11-24 16:11] LABS: BASOPHILS PERCENT AUTO 0.5 % (0.0-1.0); EOSINOPHILS ABSOLUTE AUTO 0.1 K/mm3 (0.0-0.4); EOSINOPHILS PERCENT AUTO 1.7 % (0.0-6.0); HEMATOCRIT 41.4 % (42.0-52.0); HEMOGLOBIN 14.1 gm/dl (14.0-18.0); IMMATURE GRAN ABSOLUTE AUTO 0.02 K/mm3 (0.00-0.05); IMMATURE GRAN PERCENT AUTO 0.3 % (0.0-0.4); LYMPHOCYTES ABSOLUTE AUTO 1.7 K/mm3 (1.0-4.8); LYMPHOCYTES PERCENT AUTO 27.9 % (24.0-44.0); MEAN CORPUSCULAR HEMOGLOBIN 29.9 pg (28.0-32.0); MEAN CORPUSCULAR HGB CONC 34.1 g/dl (32.0-36.0); MEAN CORPUSCULAR VOLUME 87.7 fl (83.0-99.0); MEAN PLATELET VOLUME 9.7 fl (9.4-12.4); MONOCYTES ABSOLUTE AUTO 0.8 K/mm3 (0.0-0.8); MONOCYTES PERCENT AUTO 13.1 % (0.0-8.0); NEUTROPHILS ABSOLUTE AUTO 3.4 K/mm3 (1.8-7.7); NEUTROPHILS PERCENT AUTO 56.5 % (41.0-71.0); PLATELET COUNT,PLT 263 K/mm3 (150-400); RED BLOOD CELL COUNT 4.72 M/mm3 (4.52-5.90); WHITE BLOOD CELL COUNT,WBC 5.96 K/mm3 (3.9-11.3)
[2024-11-24] MEDS: Iopamidol 612 MG/ML 100 ML Bottle IVPUSH ONE (16:19)
[2024-11-24] MEDS: Sodium Chloride 0.9% 10 ML Syringe FLUSH PRN (16:19)
[2024-11-24 16:36] LABS: A/G RATIO 1.2 (1-2); ALBUMIN 4.1 g/dl (3.4-5.0); ANION GAP 12.8 (5-15); BILIRUBIN TOTAL 0.4 mg/dL (0.2-1.0); CALCIUM 9.3 mg/dL (8.5-10.1); CREATININE 1.5 mg/dL (0.7-1.3); EST CRCL DRUG DOSING (CG) 59.37 mL/min; POTASSIUM,K 3.8 mEq/L (3.5-5.1); PROTEIN TOTAL,TP 7.6 g/dl (6.4-8.2)
[2024-11-24 16:37] LABS: APPEARANCE,URINE CLEAR (Clear); BILIRUBIN,URINE NEGATIVE (Negative); COLOR,URINE YELLOW (Yellow); GLUCOSE,URINE NEGATIVE (Negative); KETONES,URINE NEGATIVE (Negative); LEUKOCYTE ESTERASE,URINE NEGATIVE (Negative); NITRITE,URINE NEGATIVE (Negative); OCCULT BLOOD,URINE TRACE-INTACT (Negative); PH,URINE 6.5 (5.0-8.0); PROTEIN,URINE NEGATIVE (Negative); UROBILINOGEN,URINE 0.2 (0.2-1.0)
[2024-11-24 16:57] VITALS: BP 140/85; PULSE 64
[2024-11-24 17:02] LABS: BACTERIA,URINE OCCASIONAL /hpf (FEW); MUCUS,URINE NOT SEEN /hpf (FEW); RBC,URINE 0-5 /hpf (0-5); SQUAMOUS EPITHELIAL CELLS,UR NOT SEEN /hpf (0-5); WBC,URINE NOT SEEN /hpf (0-5)
[2024-11-24] MEDS: Ketorolac 30 MG/ML SDV IVPUSH ONE (17:23)
== END 2024-11-24 17:52 | disposition home or self-care (01) ==
LOC: JD.ED 15:08
DX: R10.30 Lower abdominal pain, unspecified (principal); I25.10 Atherosclerotic heart disease of native coronary artery without angina pectoris; E78.00 Pure hypercholesterolemia, unspecified; J44.89 Other specified chronic obstructive pulmonary disease; E03.9 Hypothyroidism, unspecified; I11.0 Hypertensive heart disease with heart failure; I50.9 Heart failure, unspecified; Z86.16 Personal history of COVID-19; Z88.8 Allergy status to other drugs, medicaments and biological substances; Z79.51 Long term (current) use of inhaled steroids; Z79.899 Other long term (current) drug therapy
CPT/HCPCS: 36415; 74177; 80053; 81001; 83690; 85025; 96361; 96374; 96375; 99284; J1885; J2405; J7030; Q9967; 99283

== ENCOUNTER 2025-01-19 10:21 | Day surgery (SDC) | payer MEDICARE, OTHER, MEDICAID ==
[2025-01-19] MEDS: Lactated Ringers 1,000 ML IV SCH (10:45)
[2025-01-19] MEDS ORDERED: propofoL 500 MG/50 ML 50 ML ONE (11:47)
[2025-01-19] MEDS ORDERED: Propofol 200 MG/20 ML SDV ONE ×2 (12:30→12:44)
[2025-01-19] MEDS ORDERED: Lactated Ringers 1,000 ML ONE (12:32)
[2025-01-19] MEDS: Simethicone Drops 40 MG/0.6 ML 30 ML Bottle ONE (12:35)
[2025-01-19] MEDS ORDERED: fentaNYL 100 MCG/2 ML SDV IVPUSH PRN (13:14)
[2025-01-19] MEDS ORDERED: HYDROmorphone 0.5 MG/0.5 ML Syringe IVPUSH PRN (13:14)
[2025-01-19] MEDS ORDERED: Ondansetron 4 MG/2 ML SDV IVPUSH PRN (13:14)
[2025-01-19 13:58] VITALS: BP 130/74; PULSE 60
== END 2025-01-19 13:45 | disposition home or self-care (01) ==
LOC: JD.SDS 10:21
PROVIDERS: ATTEND Surgery
DX: D12.8 Benign neoplasm of rectum (principal); K63.5 Polyp of colon; K31.89 Other diseases of stomach and duodenum; K22.70 Barrett's esophagus without dysplasia; K21.9 Gastro-esophageal reflux disease without esophagitis; K44.9 Diaphragmatic hernia without obstruction or gangrene; K57.30 Diverticulosis of large intestine without perforation or abscess without bleeding; K64.8 Other hemorrhoids; I13.0 Hypertensive heart and chronic kidney disease with heart failure and stage 1 through stage 4 chronic kidney disease, or unspecified chronic kidney disease; I50.9 Heart failure, unspecified; N18.9 Chronic kidney disease, unspecified; E66.812 Obesity, class 2; E03.9 Hypothyroidism, unspecified; Z88.8 Allergy status to other drugs, medicaments and biological substances; Z68.38 Body mass index [BMI] 38.0-38.9, adult; Z79.82 Long term (current) use of aspirin; Z79.899 Other long term (current) drug therapy; Z79.890 Hormone replacement therapy; Z87.891 Personal history of nicotine dependence
CPT/HCPCS: 43239; 45380; 88305; J2704; J7120; 00813